=== PATIENT | female | born 1930 | race Caucasian/White ===

== ENCOUNTER 2017-10-12 04:13 | Inpatient (IN) | payer OTHER ==
[2017-10-12] MEDS ORDERED: ONDANSETRON 4 MG/2 ML VIAL ONE (05:21)
[2017-10-12] MEDS ORDERED: MORPHINE 4 MG/ML SYR ONE ×2 (05:21→08:50)
--- NOTE | 2017-10-12 08:03 | EDPHYS ---
Physician Documentation [facility] Name: Aide Hauser Age: 88 yrs Sex: Female : 02/25/1929 Arrival Date: 10/12/2017 Time: 04:14 Bed 17 Private MD: ED Physician Antione Osorio HPI: 10/12 04:18 This 88 yrs old Female presents to ER via EMS with complaints of left hip ps1 pain and fall. 04:18 Pain localized to left hip. BIBEMS. had fall at home. Mechanical in bathroom. Hit head. ps1 Not on blood thinners. pain rated moderate worse with moving left leg. Appears to have leg length discrepancy. . Historical: - Allergies: 04:19 No Known Allergies; bb - Home Meds: 04:19 gabapentin 600 mg oral tab [Active]; glimepiride 4 mg Oral tab [Active]; levothyroxine bb 100 mcg tab [Active]; lisinopril 20 mg Oral tab [Active]; lorazepam 2 mg Oral tab [Active]; meloxicam 15 mg oral tab [Active]; Phenylephrine Opht [Active]; dextromethorphan-guaifenesin oral oral [Active]; - PMHx: 04:19 Hypertension; Hyperlipidemia; Diabetes - NIDDM; bb - Immunization history:: Adult Immunizations up to date. - Social history:: Smoking status: Patient/guardian denies using tobacco. - Ebola Screening: : No symptoms or risks identified at this time. ROS: 04:18 Constitutional: Negative for fever, chills, and weight loss, Eyes: Negative for injury, ps1 pain, redness, and discharge, Cardiovascular: Negative for chest pain, palpitations, and edema, Respiratory: Negative for shortness of breath, cough, wheezing, and pleuritic chest pain, Abdomen/GI: Negative for abdominal pain, nausea, vomiting, diarrhea, and constipation, Back: Negative for injury and pain, Skin: Negative for injury, rash, and discoloration, Neuro: Negative for headache, weakness, numbness, tingling, and seizure. 04:18 MS/extremity: Positive for injury or acute deformity, pain, of the left leg. Exam: 04:18 Constitutional: This is a well developed, well nourished patient who is awake, alert, ps1 and in no acute distress. Head/Face: Normocephalic, atraumatic. Eyes: Pupils equal round and reactive to light, extra-ocular motions intact. Lids and lashes normal. Conjunctiva and sclera are non-icteric and not injected. Chest/axilla: Normal chest wall appearance and motion. Nontender with no deformity. No lesions are appreciated. Cardiovascular: Regular rate and rhythm. No gallops, murmurs, or rubs. Normal PMI, no JVD. No pulse deficits. Respiratory: Lungs have equal breath sounds bilaterally, clear to auscultation and percussion. No rales, rhonchi or wheezes noted. No increased work of breathing, no retractions or nasal flaring. Abdomen/GI: Soft, non-tender, with normal bowel sounds. No distension or tympany. No guarding or rebound. No evidence of tenderness throughout. Skin: Warm, dry with normal turgor. Normal color with no rashes, no lesions, and no evidence of cellulitis. 04:18 Musculoskeletal/extremity: Extremities: grossly normal except: noted in the left leg and pelvis: pain, decreased ROM, pain. Vital Signs: 04:19 BP 122 / 67; Pulse 120; Resp 18 S; Temp 99.1(O); Pulse Ox 96% on R/A; Weight 68.49 kg bb (R); Height 5 ft. 6 in. (167.64 cm) (R); Pain 8/10; 06:11 BP 117 / 56; Pulse 99; Resp 18 S; Pulse Ox 100% on R/A; Pain 8/10; jd3 08:11 BP 126 / 51; Pulse 93; Resp 18; Pulse Ox 95% on 2 lpm NC; sv 09:06 BP 132 / 76; Pulse 91; Resp 16; Pulse Ox 95% on 2 lpm NC; sv 09:30 BP 130 / 65; Pulse 97; Resp 18; Pulse Ox 97% on 2 lpm NC; sv 04:19 Body Mass Index 24.37 (68.49 kg, 167.64 cm) bb MDM: 04:17 Patient medically screened. ps1 08:02 Differential diagnosis: hip fracture, femoral neck fracture. Data reviewed: vital rn signs, nurses notes, lab test result(s), EKG, radiologic studies, CT scan, plain films, and as a result, I will admit patient. Counseling: I had a detailed discussion with the patient and/or guardian regarding: the historical points, exam findings, and any diagnostic results supporting the discharge/admit diagnosis, lab results, radiology results, the need for further work-up and treatment in the hospital. Response to treatment: the patient's symptoms have mildly improved after treatment, and as a result, I will admit patient. Admission orders: after a detailed discussion of the patient's condition and case, the admit orders are written by me. 10/12 04:17 Order name: Basic Metabolic Panel; Complete Time: 09:10 ps1 10/12 04:17 Order name: CBC with Diff; Complete Time: 09:10 ps1 10/12 04:17 Order name: Type And Screen ps1 10/12 10:15 Order name: Urine Dipstick--Ancillary (enter results) em1 10/12 04:17 Order name: XRAY Pelvis; Complete Time: 09:10 ps1 10/12 04:17 Order name: Femur Left XRAY; Complete Time: 09:10 ps1 10/12 07:12 Order name: Head C Spine Cap Wo Con; Complete Time: 09:10 EDMS 10/12 04:17 Order name: Labs collected and sent; Complete Time: 06:03 ps1 10/12 04:17 Order name: Urine Dipstick-Ancillary (obtain specimen); Complete Time: 10:12 ps1 10/12 08:05 Order name: Doyle; Complete Time: 08:28 sv 10/12 08:09 Order name: CONS Physician Consult EDMS Administered Medications: 05:18 Drug: morphine 2 mg Route: IM; Site: left vastus lateralis; kl 05:18 Drug: Zofran 4 mg Route: IM; Site: left vastus lateralis; kl 05:37 Not Given (Other Intervention Used): morphine 2 mg IVP once kl 05:37 Not Given (Other Intervention Used): Zofran 4 mg IVP once; over 2 minutes kl 08:10 CANCELLED (Duplicate Order): Rocephin - (cefTRIAXone) 1 grams IVPB once over 30 mins; rn (mix in 50 mL NS) 08:10 CANCELLED (Duplicate Order): AZITHromycin 500 mg IVPB once over 1 hrs; (mix in 250 mL rn NS) 08:30 CANCELLED (change order): LevaQUIN 750 mg 150 ml IVPB once over 90 mins sv 09:01 Drug: morphine 2 mg Route: IVP; Site: left antecubital; sv 10:03 Follow up: Response: No adverse reaction sv 09:03 Drug: Rocephin 1 grams Route: IV; Rate: calculated rate; Site: left antecubital; sv 09:07 Follow up: Response: No adverse reaction; IV Status: Completed infusion; IV Intake: 10mlsv 09:08 Drug: Zithromax 500 mg Route: IVPB; Infused Over: 1 hrs; Site: left antecubital; sv 10:28 Follow up: Response: No adverse reaction; IV Status: Completed infusion; IV Intake: sv 250ml Disposition: 10/12/17 08:03 Hospitalization ordered by Kimberly Angeles for Inpatient Admission. Preliminary diagnosis are Pneumonia, Fracture of unspecified part of neck of left femur. - Bed requested for Telemetry/MedSurg (Inpatient). - Status is Inpatient Admission. sv - Condition is Stable. - Problem is new. - Symptoms have improved. UTI on Admission? No Signatures: Dispatcher [employer] EDMS Saranya Grace RN RN kl Verde, Stephanie, RN RN sv Ballard, Brenda, RN RN bb Nieto, Roman, MD MD rn Smirch, Shelby, RN RN ss Cedric Horner MD MD ps1 Corrections: (The following items were deleted from the chart) 06:04 04:17 Creatinine for Radiology+C.LAB.BRZ ordered. EDIN EDMS 06:36 04:17 Head C Spine CAP W Con+CT.RAD.BRZ ordered. EDIN EDMS 07:12 06:35 Head C Spine Mpr Wo Con ordered. EDIN EDMS 08:10 08:02 Rocephin - (cefTRIAXone) 1 grams IVPB once over 30 mins; (mix in 50 mL NS) rn ordered. rn 08:10 08:02 AZITHromycin 500 mg IVPB once over 1 hrs; (mix in 250 mL NS) ordered. rn rn 08:30 08:10 LevaQUIN 750 mg 150 ml IVPB once over 90 mins ordered. rn sv 09:43 08:03 Hospitalization Ordered by Kimberly Angeles MD for Inpatient Admission. Preliminary ss diagnosis is Pneumonia; Fracture of unspecified part of neck of left femur. Bed requested for Telemetry/MedSurg (Inpatient). Status is Inpatient Admission. Condition is Stable. Problem is new. Symptoms have improved. UTI on Admission? No. rn 10:47 09:43 10/12/2017 08:03 Hospitalization Ordered by Kimberly Angeles MD for Inpatient sv Admission. Preliminary diagnosis is Pneumonia; Fracture of unspecified part of neck of left femur. Bed requested for Telemetry/MedSurg (Inpatient). Status is Inpatient Admission. Condition is Stable. Problem is new. Symptoms have improved. UTI on Admission? No. ss
--- NOTE | 2017-10-12 08:03 | ER ---
Nurse's Notes [facility] Name: Aide Hauser Age: 88 yrs Sex: Female : 02/25/1929 Arrival Date: 10/12/2017 Time: 04:14 Bed 17 Private MD: Diagnosis: Pneumonia;Fracture of unspecified part of neck of left femur Presentation: 10/12 04:05 Presenting complaint: EMS states: they were toned out for report of pt fall with left bb leg pain, pt denies LOC, pt states she stopped taking blood thinners 2 months ago. Transition of care: patient was not received from another setting of care. Onset of symptoms was October 12, 2017. Risk Assessment: Do you want to hurt yourself or someone else? Patient reports no desire to harm self or others. Initial Sepsis Screen: Does the patient meet any 2 criteria? HR > 90 bpm. Does the patient have a suspected source of infection? No. Patient's initial sepsis screen is negative. Care prior to arrival: None. 04:05 Method Of Arrival: EMS: [facility] bb 04:05 Acuity: DARWIN 3 bb 05:39 Note pt repositioned for comfort tolerated well O2 sat 84% on room air O2 at 3 liters kl NC applied sat up to 95% pt reports cough x 2 days with reports of indigestion provider notified. Historical: - Allergies: 04:19 No Known Allergies; bb - Home Meds: 04:19 gabapentin 600 mg oral tab [Active]; glimepiride 4 mg Oral tab [Active]; levothyroxine bb 100 mcg tab [Active]; lisinopril 20 mg Oral tab [Active]; lorazepam 2 mg Oral tab [Active]; meloxicam 15 mg oral tab [Active]; Phenylephrine Opht [Active]; dextromethorphan-guaifenesin oral oral [Active]; - PMHx: 04:19 Hypertension; Hyperlipidemia; Diabetes - NIDDM; bb - Immunization history:: Adult Immunizations up to date. - Social history:: Smoking status: Patient/guardian denies using tobacco. - Ebola Screening: : No symptoms or risks identified at this time. Screenin:27 Abuse screen: Denies threats or abuse. Denies injuries from another. Nutritional sv screening: No deficits noted. Tuberculosis screening: No symptoms or risk factors identified. Fall Risk No fall in past 12 months (0 pts). Secondary diagnosis (15 points) impaired mobility, IV access (20 points). Ambulatory Aid- None/Bed Rest/Nurse Assist (0 pts). Gait- Impaired (20 pts.). Mental Status- Oriented to own ability (0 pts). Total Valle Fall Scale indicates High Risk Score (45 or more points). Fall prevention measures have been instituted. Side Rails Up X 2 Placed Close to Nursing Station Frequent Obs/Assessments Occuring Family Present and informed to notify staff if the need to leave the bedside As available patient and family educated on Fall Prevention Program and Strategies. Assessment: 04:14 General: Appears uncomfortable, Behavior is calm, cooperative, appropriate for age. jd3 Pain: Complains of pain in left hip and left leg Pain currently is 8 out of 10 on a pain scale. Quality of pain is described as aching, tender, Is continuous, Aggravated by increased activity. Neuro: Level of Consciousness is awake, alert, obeys commands, Oriented to person, place, time, situation, Appropriate for age Speech is normal, Pupils are PERRLA, Intact. Cardiovascular: Heart tones S1 S2 present Capillary refill < 3 seconds Patient's skin is warm and dry. Pulses are palpable in right dorsalis pedis artery and left dorsalis pedis artery. Respiratory: Airway is patent Respiratory effort is even, unlabored, Respiratory pattern is regular, symmetrical, Breath sounds are clear bilaterally. GI: Abdomen is round Bowel sounds present X 4 quads. Abd is soft and non tender X 4 quads. Patient currently denies nausea, vomiting. : No signs and/or symptoms were reported regarding the genitourinary system. EENT: No signs and/or symptoms were reported regarding the EENT system. Derm: Skin is intact, Skin is dry, Skin is normal, Skin temperature is warm. Musculoskeletal: Circulation, motion, and sensation intact. Range of motion: limited in left hip externally rotated and shortening noted of left leg. 05:15 Reassessment: Patient appears in no apparent distress at this time. Patient and/or jd3 family updated on plan of care and expected duration. Pain level reassessed. Patient is alert, oriented x 3, equal unlabored respirations, skin warm/dry/pink. 06:12 Reassessment: Patient appears in no apparent distress at this time. Patient and/or jd3 family updated on plan of care and expected duration. Pain level reassessed. Patient is alert, oriented x 3, equal unlabored respirations, skin warm/dry/pink. waiting on results of labs and diagnostics tests. 07:20 General: Appears uncomfortable, Behavior is calm, cooperative, appropriate for age. sv Pain: Complains of pain in left hip Pain currently is 8 out of 10 on a pain scale. Quality of pain is described as tender, Is continuous. Neuro: Level of Consciousness is awake, alert, obeys commands, Oriented to person, place, time, situation. Respiratory: Respiratory effort is even, unlabored, Respiratory pattern is regular, symmetrical. Derm: Skin is normal. 07:23 Reassessment: Deana RN at bedside attempting to get IV access. sv 07:49 Reassessment: 2 missed IV attempts via ultrasound per Deana KIDD, notified, sg ultrasound remains at bedside for IV access, awaiting at this time. 09:00 Reassessment: Patient appears in no apparent distress at this time. No changes from sv previously documented assessment. Patient and/or family updated on plan of care and expected duration. Pain level reassessed. Patient is alert, oriented x 3, equal unlabored respirations, skin warm/dry/pink. 10:27 Reassessment: Patient appears in no apparent distress at this time. No changes from sv previously documented assessment. Patient and/or family updated on plan of care and expected duration. Pain level reassessed. Patient is alert, oriented x 3, equal unlabored respirations, skin warm/dry/pink. Vital Signs: 04:19 BP 122 / 67; Pulse 120; Resp 18 S; Temp 99.1(O); Pulse Ox 96% on R/A; Weight 68.49 kg bb (R); Height 5 ft. 6 in. (167.64 cm) (R); Pain 8/10; 06:11 BP 117 / 56; Pulse 99; Resp 18 S; Pulse Ox 100% on R/A; Pain 8/10; jd3 08:11 BP 126 / 51; Pulse 93; Resp 18; Pulse Ox 95% on 2 lpm NC; sv 09:06 BP 132 / 76; Pulse 91; Resp 16; Pulse Ox 95% on 2 lpm NC; sv 09:30 BP 130 / 65; Pulse 97; Resp 18; Pulse Ox 97% on 2 lpm NC; sv 04:19 Body Mass Index 24.37 (68.49 kg, 167.64 cm) bb ED Course: 04:14 Patient arrived in ED. jd3 04:14 Bello Gamble RN is Primary Nurse. jd3 04:15 Cedric Horner MD is Attending Physician. ps1 04:16 Triage completed. bb 04:19 Patient has correct armband on for positive identification. Bed in low position. Call jd3 light in reach. Side rails up X2. 04:19 Arm band placed on Patient placed in an exam room, on a stretcher, on oxygen. bb 05:05 Radiology exam delayed due to lab results not completed at this time. (BUN/Creatinine). sj 05:41 Missed attempt(s): 24 gauge in left hand. kl 06:33 X-ray completed. Portable x-ray completed in exam room. Patient tolerated procedure kw well. 06:33 Radiology exam delayed due to CODE 99. kw 06:35 XRAY Pelvis In Process Unspecified. EDMS 06:35 Femur Left XRAY In Process Unspecified. EDMS 06:[address] via stretcher. kw1 06:44 CT completed. Patient tolerated procedure well. Patient moved back from CT. kw1 07:04 Primary Nurse role handed off by Bello Gamble RN sv 07:04 Dasha Velazco, RN is Primary Nurse. sv 07:13 Head C Spine Cap Wo Con In Process Unspecified. EDMS 07:58 Attending Physician role handed off by Cedric Horner MD rn 07:58 Antione Osorio MD is Attending Physician. rn 08:03 Kimberly Angeles MD is Hospitalizing Provider. rn 08:15 Doyle cath inserted, using sterile technique, 16 Fr., by or, balloon inflated, to mh5 gravity drainage. 08:40 Missed attempt(s): 22 gauge in left antecubital area. using Ultrasound, done by Dr gabriela Osorio. Bleeding controlled, band aid applied, catheter tip intact. 09:00 Accessed peripheral vein via ultrasound, utilizing dynamic ultrasound technique using gabriela ,sterile technique, per hospital protocol. Clean \T\ dry. Dressing intact. Good blood return. Flushes easily. 22G diffusics, done by Dr Osorio.. 10:09 No provider procedures requiring assistance completed. Patient admitted, IV remains in sv place. intact. 10:28 Urine Dipstick--Ancillary (enter results) Sent. sv Administered Medications: 05:18 Drug: morphine 2 mg Route: IM; Site: left vastus lateralis; kl 05:18 Drug: Zofran 4 mg Route: IM; Site: left vastus lateralis; kl 05:37 Not Given (Other Intervention Used): morphine 2 mg IVP once kl 05:37 Not Given (Other Intervention Used): Zofran 4 mg IVP once; over 2 minutes kl 08:10 CANCELLED (Duplicate Order): Rocephin - (cefTRIAXone) 1 grams IVPB once over 30 mins; rn (mix in 50 mL NS) 08:10 CANCELLED (Duplicate Order): AZITHromycin 500 mg IVPB once over 1 hrs; (mix in 250 mL rn NS) 08:30 CANCELLED (change order): LevaQUIN 750 mg 150 ml IVPB once over 90 mins sv 09:01 Drug: morphine 2 mg Route: IVP; Site: left antecubital; sv 10:03 Follow up: Response: No adverse reaction sv 09:03 Drug: Rocephin 1 grams Route: IV; Rate: calculated rate; Site: left antecubital; sv 09:07 Follow up: Response: No adverse reaction; IV Status: Completed infusion; IV Intake: 10mlsv 09:08 Drug: Zithromax 500 mg Route: IVPB; Infused Over: 1 hrs; Site: left antecubital; sv 10:28 Follow up: Response: No adverse reaction; IV Status: Completed infusion; IV Intake: sv 250ml Intake: 09:07 IV: 10ml; Total: 10ml. sv 10:28 IV: 250ml; Total: 260ml. sv Outcome: 08:03 Decision to Hospitalize by Provider. rn 10:09 Admitted to Tele accompanied by tech, via stretcher, room 220, with oxygen, with chart, sv Report called to Gracia KIDD 10:09 Condition: stable 10:09 Instructed on the need for admit. 10:47 Patient left the ED. sv Signatures: Dispatcher [employer] Saranya Rothman RN RN kl Verde, Stephanie, RN RN sv Gay, Steven, RN RN sg Jones, Susan sj Ballard, Brenda, RN RN bb Nieto, Roman, MD MD rn Irwin, Yoselin kw Alexis, Antoinette [facility] Bello Gamble RN RN jd3 Singer, Phillip, MD MD ps1 Wilhelm, Kimberly kw1 Corrections: (The following items were deleted from the chart) 04:19 04:14 Musculoskeletal: Circulation, motion, and sensation intact. Range of motion: jd3 intact in all extremities, jd3 07:12 06:55 In radiology for Head C Spine Mpr Wo Con. EDMS EDMS
[2017-10-12 08:05] LABS: Absolute Lymphocytes (CBC) 1.1 K/uL (0.7-4.9); Absolute Monocytes 0.5 K/uL (0.1-1.3); Absolute Neutrophil 7.1 K/uL (1.8-8.0); Basophils % 0.3 % (0-1.3); Eosinophils % 0.1 % (0-4.4); Hematocrit 38.5 % (36.0-45.0); Lymphocytes % 12.1 % (15.3-44.8); MCH 29.9 pg (27.0-35.0); MCV 90.1 fL (80-100); MPV 10.7 fL (7.6-11.3); Monocytes % 6.1 % (3.3-12.3); RBC Red Blood Cell Count 4.27 M/uL (3.86-4.86)
[2017-10-12 08:06] LABS: Potassium 4.1 mEq/L (3.6-5.0)
[2017-10-12] MEDS ORDERED: CEFTRIAXONE/SWI 1gm 1 GM/10 ML SYR ONE (08:19)
[2017-10-12] MEDS ORDERED: AZITHROMYCIN 500 MG/250 ML BAG ONE (08:19)
[2017-10-12] MEDS ORDERED: ACETAMINOPHEN 500 MG TAB PO PRN (08:25)
[2017-10-12] MEDS ORDERED: ONDANSETRON 4 MG/2 ML VIAL IV PRN (08:25)
[2017-10-12] MEDS ORDERED: D50W 25 GM/50 ML SYRINGE IV PRN (08:31)
[2017-10-12] MEDS ORDERED: GLUCAGON 1 MG/VIAL IM PRN (08:31)
--- NOTE | 2017-10-12 08:43 | RAD REPORT ---
EXAM DESCRIPTION: RAD - Femur Left - 10/12/2017 6:34 am CLINICAL HISTORY: Left leg pain status post fall FINDINGS: A mildly displaced subcapital fracture involves the left femur. No dislocation is seen. The bones are osteoporotic
--- NOTE | 2017-10-12 08:44 | RAD REPORT ---
EXAM DESCRIPTION: RAD - Pelvis - 10/12/2017 6:34 am CLINICAL HISTORY: Pelvic pain status post injury FINDINGS: A mildly displaced subcapital fracture involves the left femur. No dislocation is seen. The bones are osteoporotic
[2017-10-12] MEDS: NA CHLORIDE 0.9% 1,000 ML IV SCH ×2 (09:00→22:20)
--- NOTE | 2017-10-12 09:04 | RAD REPORT ---
EXAM DESCRIPTION: CT - Head C Spine Cap Geovanna Con - 10/12/2017 8:59 am TECHNIQUE: Computed axial tomography of the head and cervical spine was obtained. Coronal and sagitt al reconstruction was performed Computed axial tomography of the chest, abdomen and pelvis was obtained. Contrast was not requested. All CT scans are performed using dose optimization technique as appropriate and may include automated exposure control or mA/KV adjustment according to patient size. CLINICAL HISTORY: Head and neck injury with chest and abdominal pain status post fall COMPARISON: none FINDINGS: An intracranial bleed is not seen. The ventricles are normal in caliber. No acute intracranial abnormality is noted. Fluid within the sinuses/mastoids is not seen. A cervical fracture is not seen. No dislocation is noted. Spondylosis involves C5-6 and C6-7. This re sults in moderate central spinal stenosis. The evaluation of mediastinum, forest, vessels, solid organs and bowel are limited secondary to the lac k of contrast administration. A mediastinal hematoma is not noted. A pleural effusion is not seen. A lung contusion is not present. The liver,spleen, pancreas, adrenals,kidneys and bladder appear grossly normal. A mildly displaced subcapital fracture involves the left femur. IMPRESSION: 1. No acute intracranial abnormality is seen. 2. A cervical fracture is not visualized. If the patient continues have symptoms to suggest intracran ial/spinal cord/spinal canal pathology then MRI would be recommended 3. Mildly displaced subcapital fracture of the left femur. 3. No traumatic injury involving the chest/abdomen is seen
[2017-10-12] MEDS: INSULIN -REGULAR HUMAN 50 UNIT/0.5 ML ML SQ SCH ×3 (11:30→21:00)
[2017-10-12 11:47] LABS: Urine Blood 2+ (NEG); Urine Glucose NEGATIVE (NEG); Urine Protein NEGATIVE (NEG); Urine Specific Gravity 1.015 (1.005-1.030)
[2017-10-12] MEDS ORDERED: MORPHINE 2 MG/ML SYR IV PRN (11:52)
--- NOTE | 2017-10-12 12:25 | CON ---
An 87-year-old woman. Additional Attending Physician: Antione Osorio MD Chief Complaint: Pain in her left hip. History Of Present Illness: Mrs. Hauser had a slip and a fall. There was no loss of consciousness . She hurt several places, but her left hip in particular. X-rays indicated a subcapital fracture o f the femoral neck on the left. I am asked to evaluate her heart for the suitability of going throug h surgery. She has a history of breast cancer, multigravid, never had any problems with heart surger y. She has a murmur of the aortic stenosis. Most recent echocardiogram in my office said the degree of stenosis was mild enough, but was called sclerotic rather than stenotic. She denies having chest pain that sounds like angina. No episodes of syncope. No episodes of congestive heart failure. Stef sandoval does not have diabetes. There is some concern that she has pneumonia now, but there is no chest x- ray to say she does and she does not seem to have an infiltrate on a CT that included the chest, so I am not sure why we are entertaining the diagnosis of pneumonia. There is probably a test, I do not have available. She uses at home, gabapentin, glimepiride, levothyroxine, lisinopril, lorazepam, andrew oxicam, phenylephrine, ophthalmic drops, dextromethorphan, guaifenesin for a cough. Most of those me dicines are as needed. She has underlying diabetes and aortic valve disease that does not appear to be severe. Physical Examination: General: She appears to be mildly obese, alert, oriented, pleasant, appears to be her stated age. Vital Signs: Blood pressure 122/67. Her pulse was 120 when she first came to the ER, now it is abou t 85. Lungs: Do not reveal crackles or wheeze. Heart: Reveals a 2 to 3/6 systolic musical and high-pitched ejection type murmur. No diastolic murm ur is appreciated. Abdomen: Soft. Extremities: Reveal palpable distal pulses. There are mild edema, changes of venous insufficiency. The left foot is laterally displaced consistent with a femoral neck fracture. Assessment And Plan: I will recommend we do an echocardiogram, but she seems to be acceptable risk f or going through surgery, open reduction and internal fixation of subcapital femoral neck fracture. Orthopedic surgeon has not really made his recommendations yet in anticipation of her need for genera l anesthesia and surgery. TIEN Voice ID: [id number] Report ID: [id number]
--- NOTE | 2017-10-12 14:02 | ECHO ---
HEIGHT: 5 ft 6 in WEIGHT: 151 lb 0 oz DATE OF STUDY: 10/12/[address]: Alex Dalton MD 2-DIMENSIONAL: YES M.MODE: YES DOPPLER: YES COLOR FLOW: YES TDS: PORTABLE: DEFINITY: BUBBLE STUDY: DIAGNOSIS: AORITC VALVE DISEASE CARDIAC HISTORY: CATHERIZATION: NO SURGERY: NO PROSTHETIC VALVE: NO PACEMAKER: NO MEASUREMENTS (cm) DIASTOLIC (NORMALS) SYSTOLIC (NORMALS) IVSd 1.0 (0.6-1.2) LA Diam 3.3 (1.9-4.0) LVEF 58% LVIDd 4.1 (3.5-5.7) LVIDs 2.8 (2.0-3.5) %FS 30% LVPWd 1.1 (0.6-1.2) Ao Diam 3.0 (2.0-3.7) 2 DIMENSIONAL ASSESSMENT: RIGHT ATRIUM: NORMAL LEFT ATRIUM: NORMAL RIGHT VENTRICLE: NORMAL LEFT VENTRICLE: NORMAL TRICUSPID VALVE: NORMAL MITRAL VALVE: MAC PULMONIC VALVE: NORMAL AORTIC VALVE: STNEOSIS PERICARDIAL EFFUSION: NONE AORTIC ROOT: NORMAL LEFT VENTRICULAR WALL MOTION: NORMAL DOPPLER/COLOR FLOW: MODERATE AORTIC STENOSIS P/MEAN GRADIENT 30/21 ESTIMATED AORTIC VALVE AREA 1.4 CENTIMETER SQUARE. IM PAIRED LEFT VENTRICULAR RELAXATION. COMMENTS: NORMAL LEFT VENTRICULAR EJECTION FRACTION. MITRAL ANNULAR CALCIFICATION MODERATE AORTIC STENOSIS, NO AORTIC REGURGITATION. IMPAIRED LEFT VENTRICULAR RELAXATION. TECHNOLOGIST: CHARLES KELLY
[2017-10-12] MEDS: Morphine 2 MG/2 ML SYR IV PRN ×2 (15:09→21:04)
--- NOTE | 2017-10-12 15:26 | HP ---
Date of Admission: 10/12/2017 Consultants: Dr. Moore, Orthopedics; Dr. Dalton with Cardiology. Chief Complaint: Fall, left hip pain, cough. Code Status: Full. Primary Care Physician: Lucie Morgan DO History Of Present Illness: The patient is an 87-year-old female with past medical history of diabetes non-insulin requiring, gout, hypothyroidism, history of breast cancer status post lumpectomy, and chronic liver disease, unknown etiology, currently being worked up by Dr. Sheth, who was in her usual state of health until 3 days prior to admission when the patient started having generalized weakness, cough. No subjective fevers. The patient was exposed to her great grandson who was sick and started having some cough with sputum production, which was white, occasionally blood-tinged. The patient had been feeling ill for the past few days. Her symptoms are constant, moderate, and progressively worsening. She did not come to the ER as requested per her daughter 2 days ago and last night was [facility] the [facility] and was unable to make it. She was unable to control her bladder and slipped and fell in the bathroom. The patient hit her head on the commode and also fell on the shower door and hurt her left hip. The patient's pain was constant, moderate, not radiating. The patient therefore came into the ER for further evaluation. Upon arrival, her vital signs were stable. She was afebrile. Her workup revealed a normal WBC count. Her creatinine was 1.02. Imaging studies showed no intracranial hemorrhage, did see a mildly displaced subcapital fracture of the left femur. The patient was then referred for admission for pneumonia and left hip fracture. When seen in the ER, the patient was awake, alert, oriented x3, in some mild distress due to pain. Past Medical History: Diabetes non-insulin requiring, gout, hypothyroidism, history of breast cancer status post lumpectomy and radiation therapy, chronic liver disease with unclear etiology, being worked up by Dr. Sheth, hysterectomy, cholecystectomy, generalized anxiety disorder. Allergies: NO KNOWN DRUG ALLERGIES. Medications: List reviewed. Social History: The patient denies any alcohol use, tobacco use, or illicit drug use. The patient does not use any assistive ambulatory devices. Lives with her daughter. Has good social support. Family History: Mom and dad both had cancer. Review of Systems: An 11-point system reviewed, negative except as per HPI. Physical Examination: Vital Signs: Blood pressure 122/67, pulse 120, respirations 18, temperature 99.1, O2 96% on room air. General: Awake, alert, oriented x3, in some mild distress due to pain. Elderly , ill-appearing female. CV: S1, S2. Sinus tachycardia. Peripheral pulses present. Positive for 3/6 systolic murmur. Respiratory: Diminished breath sounds. No wheezing or stridor. Some rhonchi heard. No use of accessory muscles. Gastrointestinal: Abdomen is soft, nontender, and nondistended. Positive bowel sounds. No guarding or rigidity. Extremities: No clubbing, cyanosis, or edema. No calf tenderness. Neuro: Cranial nerves 2 through 12 intact grossly. No focal neurological deficit. Speech is normal. Strength is symmetric bilateral upper extremities. Unable to assess left lower extremity due to pain. Musculoskeletal: Left lower extremity, decreased range of motion and tenderness to palpation, rotated. Laboratory Data: Sodium 138, potassium 4.1, chloride 101, CO2 29, BUN 12, creatinine 1.02, glucose 102, calcium 9.1. WBC 8.8, H and H 12.8 and 38.5, platelets 181, neutrophils 81%. UA; 2+ blood, negative leukocyte, negative nitrite. CT traumagram; no intracranial bleed, cervical fracture not visualized , mildly displaced subcapital fracture of the left femur. No traumatic injury involving the chest and abdomen is seen. Pelvis x-ray shows mildly displaced subcapital fracture involving the left femur. No dislocation is seen. Bones are osteoporotic. Assessment And Plan: An 87-year-old female with: 1. Left femoral neck fracture status post mechanical fall. Dr. Moore has been consulted. The patient will go for surgery in a.m. Dr. Dalton consulted for cardiac clearance. The patient does have a murmur, history of aortic sclerosis, possible stenosis. We will obtain echocardiogram prior to surgery. We will keep n.p.o. after midnight. 2. Pneumonia. We will start on IV antibiotics, obtain blood cultures and sputum culture. The patient does have cough, sputum production, and generalized weakness. 3. Recent recurrent falls. The patient is on benzodiazepines for anxiety. We will hold for now. Fall precautions. 4. Osteoporosis. 5. Diabetes mellitus type 2, non-insulin requiring with hyperglycemia. We will continue with sliding scale insulin and Accu-Cheks. 6. Hypothyroidism. Continue Synthroid. 7. Gout. 8. Generalized anxiety disorder. Hold benzodiazepines. 9. History of breast cancer, currently in remission. Plan: Admit the patient to Med/Surg, place as observation. The patient will anticipate surgery in a.m. We will follow up with echocardiogram. Appreciate Dr. Dalton' and Dr. Moore's input. No MPOA or living will /TAMAR Voice ID: [id number]
--- NOTE | 2017-10-12 16:19 | CON ---
Date of Consultation: 10/12/2017 History Of Present Illness: This is my first time seeing this patient to my knowledge. She is an 87 -year-old female, who unfortunately fell injuring her left lower extremity. She was seen and examine d in the emergency department where she was ruled out for other injuries; however, x-rays demonstrate d a displaced left femoral neck fracture. Physical Examination: All of her long bones and joints palpated without pain or crepitation with the exception of her left hip. She is neurovascularly intact. Diagnostic Data: Review of x-rays and CT revealed a displaced left femoral neck fracture. Assessment: This is an 87-year-old female with some medical conditions, who now has a displaced left femoral neck fracture. Plan: At this time, we will await final cardiac clearance and we will have her n.p.o. after 7 a.m. t omorrow. Otherwise, 1 administration of Lovenox would be fine; however, that would be the last this morning. Also, SCDs. We will plan on pursuing left hip bipolar hemiarthroplasty tomorrow and all ri sks, benefits, and alternatives of this procedure have been discussed with both the patient and the f amily. They state they understand as things presented and wishes to proceed. I have discussed this plan with her PCP and family, and they are agreeable. MOMO Voice ID: [id number] Report ID: [id number]
[2017-10-12] MEDS: GLIMEPIRIDE 2 MG TABLET PO SCH (17:00)
[2017-10-12] MEDS: GABAPENTIN 300 MG CAP PO SCH (21:04)
[2017-10-12 22:35] LABS: Urine Appearance CLEAR; Urine Bilirubin NEGATIVE (NEG); Urine Blood 3+ (NEG); Urine Color YELLOW; Urine Glucose NEGATIVE (NEG); Urine Protein NEGATIVE (NEG); Urine Specific Gravity <=1.005 (1.005-1.030); Urine Urobilinogen 0.2 mg/dL (0.2-1.0); Urine pH 6.5 (5.0-7.0)
[2017-10-12 22:36] LABS: Urine Microscopic Reflex ORDER UMIC
[2017-10-12 23:04] LABS: Urine Bacteria <20 /HPF (<20); Urine Culture Reflex Order REFLEXED; Urine RBC <5 /HPF (NONE SEEN)
[2017-10-13] MEDS: Morphine 2 MG/2 ML SYR IV PRN ×2 (01:23→05:57)
[2017-10-13] MEDS: LEVOTHYROXINE SOD 0.1 MG TAB PO SCH (05:40)
[2017-10-13 06:25] LABS: Absolute Lymphocytes (CBC) 1.7 K/uL (0.7-4.9); Absolute Neutrophil 5.2 K/uL (1.8-8.0); Basophils % 0.4 % (0-1.3); Eosinophils % 0.5 % (0-4.4); Hematocrit 39.5 % (36.0-45.0); Lymphocytes % 21.9 % (15.3-44.8); MCH 30.1 pg (27.0-35.0); MCV 91.1 fL (80-100); MPV 10.2 fL (7.6-11.3); Monocytes % 12.4 % (3.3-12.3); RBC Red Blood Cell Count 4.33 M/uL (3.86-4.86)
[2017-10-13 06:25] LABS: Albumin 3.6 g/dL (3.2-5.5); Bilirubin Total 0.9 mg/dL (0.3-1.2); Potassium 4.2 mEq/L (3.6-5.0); Protein, Total 7.3 g/dL (6.0-8.3)
[2017-10-13] MEDS ORDERED: MORPHINE 4 MG/ML SYR IV PRN (07:28)
[2017-10-13] MEDS: INSULIN -REGULAR HUMAN 50 UNIT/0.5 ML ML SQ SCH ×4 (07:30→21:00)
[2017-10-13] MEDS: GLIMEPIRIDE 2 MG TABLET PO SCH ×2 (08:00→17:00)
[2017-10-13] MEDS ORDERED: AZITHROMYCIN IV 500 MG in NA CHLORIDE 0.9% 250 ML IVPB SCH (09:00)
[2017-10-13] MEDS ORDERED: CEFTRIAXONE/SWI 1gm 1 GM/10 ML SYR IV SCH (09:00)
[2017-10-13] MEDS: LISINOPRIL 20 MG TAB PO SCH (09:00)
[2017-10-13] MEDS: GABAPENTIN 300 MG CAP PO SCH ×2 (09:00→21:00)
[2017-10-13] MEDS ORDERED: BENZONATATE 100 MG CAP PO PRN (10:09)
[2017-10-13] MEDS: NA CHLORIDE 0.9% 1,000 ML IV SCH (11:40)
--- NOTE | 2017-10-13 13:22 | PN ---
Date of Progress Note: 10/13/2017 Subjective: The patient seen and examined, chart reviewed, and case discussed with RN. The patient states her pain is controlled with medications, going for surgery this afternoon. Review of Systems: Negative except as above. Medications: Reviewed. Objective: Vital Signs: Temperature 98.1, heart rate 96, blood pressure 139/68, respirations 18, O2 90% on 2 L via nasal cannula. General: awake, alert, oriented x3. Elderly female, in some mild distress due to pain. CV: S1, S2. Peripheral pulses present. Regular rate and rhythm. 3/6 holosystolic murmur. Respiratory: Moving air well bilaterally. No wheezing. Gastrointestinal: Abdomen is soft, nontender, nondistended. Positive bowel sounds. Extremities: No clubbing, cyanosis, or edema. Neurologic: Nonfocal. Musculoskeletal: Left lower extremity shortened. Laboratory Data: Sodium 136, potassium 4.2, chloride 98, CO2 29, BUN 12, creatinine 0.97, glucose 11 3, and calcium 8.6. WBC 8, H and H 13, 39.5, and platelets 164. Blood cultures pending. Urine cult ure pending. Echocardiogram shows EF of 58%. Mitral annular calcification. Moderate aortic stenosi s. No aortic regurg. Impaired left ventricular relaxation. Assessment: An 87-year-old female with; 1.Left femoral neck fracture, status post mechanical fall. Appreciate Dr. Moore's input. Going for surgery today. The patient has been cleared for surgery. Echocardiogram reviewed, does show mo derate aortic stenosis. Spoke with Dr. Garcia. 2.Pneumonia. Continue IV antibiotics. Blood cultures and sputum cultures are pending. We will fol low up with chest x-ray in a.m. CT did not show any acute infiltrates; however, clinically the patie nt does have symptoms consistent with pneumonia. 3.Recurrent fall. We will hold benzodiazepines. Fall precautions. 4.Osteoporosis. 5.Diabetes mellitus type 2, bkr-[id number] with hyperglycemia. Continue sliding scale insuli n. Accu-Cheks. 6.Hypothyroidism, Synthroid. 7.Gout. 8.Generalized anxiety disorder, stable. Hold benzos. 9.History of breast cancer, currently in remission. Plan: Anticipate surgery. /TAMAR Voice ID: [id number] Report ID: [id number]
--- NOTE | 2017-10-13 13:32 | RAD REPORT ---
EXAM DESCRIPTION: RAD - Chest Single View - 10/13/2017 1:27 pm CLINICAL HISTORY: Pneumonia COMPARISON: None. FINDINGS: Portable technique limits examination quality. The lungs are grossly clear. The heart is upper limit normal in size. No displaced fractures. IMPRESSION: No acute intrathoracic process suspected.
[2017-10-13] MEDS ORDERED: NA CHLORIDE 0.9% 1,000 ML ONE (15:26)
[2017-10-13] MEDS ORDERED: PROPOFOL 200 MG/20 ML VIAL IV ONE (15:54)
[2017-10-13] MEDS ORDERED: ROCURONIUM 50 MG/5 ML VIAL IV ONE (15:54)
[2017-10-13] MEDS ORDERED: Phenylephrine HCl 10 MG/ML 1 ML VIAL ONE (15:55)
[2017-10-13] MEDS ORDERED: TRANEXAMIC ACID 1,000 MG in NA CHLORIDE 0.9% 50 ML IV ONE ×4 (16:00)
[2017-10-13] MEDS ORDERED: CLINDAMYCIN INJ 900 MG in NA CHLORIDE 0.9% 50 ML IV ONE (16:00)
[2017-10-13] MEDS ORDERED: FENTANYL CITR 100 MCG/2 ML ONE (16:24)
[2017-10-13] MEDS ORDERED: KETOROLAC 30 MG/ML INJ ONE (16:39)
[2017-10-13] MEDS ORDERED: DEXAMETHASONE 10 MG/ML VIAL ONE (16:39)
[2017-10-13] MEDS ORDERED: ONDANSETRON HCL 40 MG/20 ML VIAL ONE (16:39)
[2017-10-13] MEDS ORDERED: GLYCOPYRROLATE 0.2 MG/ML SYR ONE (17:35)
[2017-10-13] MEDS ORDERED: NEOSTIGMINE 1 MG/ML -10 ML VIAL ONE (17:36)
--- NOTE | 2017-10-13 18:03 | P.BOP ---
Preoperative diagnosis: left femoral neck fracture Postoperative diagnosis: same Primary procedure: left bipolar hemiarthoplasty Estimated blood loss: 50ccs Anesthesia: General Transferred to: Recovery Room Condition: Good
[2017-10-13] MEDS ORDERED: MORPHINE 4 MG/ML SYR ONE (18:33)
[2017-10-14] MEDS: CLINDAMYCIN INJ 900 MG in NA CHLORIDE 0.9% 50 ML IV SCH ×2 (00:21→06:56)
[2017-10-14] MEDS: NA CHLORIDE 0.9% 1,000 ML IV SCH (01:00)
--- NOTE | 2017-10-14 04:41 | OP ---
Date of Procedure: 10/13/2017 Surgeon: Negrito Moore MD Preoperative Diagnosis: Left hip femoral neck fracture, which is displaced. Postoperative Diagnosis: Left hip femoral neck fracture, which is displaced. Procedure: Left hip bipolar hemiarthroplasty using cemented Biomet fracture stem. Estimated Blood Loss: 50 cc. Complications: There were no complications. Specimen: No pathology specimens sent. Indication For Operation: Ms. Hauser is an 87-year-old female who unfortunately fell injuring her left lower extremity. She was seen in the emergency department. She was ruled out for other injurie s; however, x-rays demonstrated displaced femoral neck fracture on the left. She has been cleared fo r surgical procedure by the medical team and all risks, benefits, and alternatives to the left hip bi polar hemiarthroplasty have been discussed with the patient and the family. They state they understa nd all risks, benefits, alternatives, and agrees to proceed. Description Of Procedure: The patient was taken to the operating room and replaced in supine positio n. General anesthesia obtained by the staff. Following this, the patient was then placed on the opera tive table. She was then placed right side down with an axillary roll with all bony prominences bein g checked. She was appropriately positioned using the hip positioners. Her left lower extremity was then prepped and draped in the usual sterile fashion for the procedure. Following this, a standard posterolateral incision was taken down carefully through skin and soft tissues. Meticulous hemostasi s being maintained using Bovie electrocautery. A stab wound was made into the fascia with palpation of the gluteal tendon to ensure this is the correct level and position. The fascial incision was the n taken up to near the tip of the greater trochanter where the fibers of gluteus haydee were encount ered. The fibers of gluteus haydee were then spread using finger pressure. There was significant a mount of tenacious bursa which was removed. This allowed for visualization of the external rotators and the external rotators and capsule were then taken down carefully as a unit and tagged for later r epair. The fracture was easily seen and slightly lower than standard femoral neck cut was made. The pieces of the neck were removed. The femoral head was then removed and sized with ring gauge to a s ize 45. Following this, the acetabulum was cleared of all soft tissues. Teres ligament was cauteriz ed. Attention was then turned back to the femur where a icebox man was used to lateralize the entry portal. This was followed by cylindrical reamers up to a size 11. The broaching was then used up to a size 9, did not appear that size 10 would be able to pass the neck. Therefore, decision was made to move forward with size 7 cemented stem. The femoral canal was then copiously irrigated until the fluid runs clear. The bone plug was placed to appropriate depth and it was again irrigated to ensure that this was clear of any fat droplets. Third generation cementation technique was then used for p lacement of Simplex cement with gentamicin. The stem was then placed without difficulty in proper ve rsion, was held in place until the cement hardened. It was then trialed with a size 45. It appeared that the +6 ball was most appropriate, allowing for best stability without limiting extension. This was selected as a final implant, it was then tapped onto to the neck. Care was taken to ensure ther e were no foreign bodies or adherent cement and the hip was then relocated without difficulty. It wa s found to be stable with 90 degrees flexion, full adduction, and 30 degrees at least of internal rot ation. The wound was again irrigated and the external rotators and capsule were then repaired back t o the greater trochanter via bone tunnels. The fascia was then closed in a watertight fashion using heavy Vicryl sutures, was followed by irrigation and closure of the skin using Vicryl sutures, follow ed by marvin. The patient was then placed in Aquacel dressing and abduction pillow, awakened, and t aken to recovery room in good condition. There were no complications. /TAMAR Voice ID: [id number] Report ID: [id number]
[2017-10-14 05:32] LABS: Absolute Lymphocytes (CBC) 0.5 K/uL (0.7-4.9); Absolute Monocytes 0.3 K/uL (0.1-1.3); Absolute Neutrophil 3.9 K/uL (1.8-8.0); Basophils % 0.1 % (0-1.3); Hematocrit 29.2 % (36.0-45.0); Lymphocytes % 10.7 % (15.3-44.8); Monocytes % 5.4 % (3.3-12.3); RBC Red Blood Cell Count 3.25 M/uL (3.86-4.86)
[2017-10-14 06:17] LABS: Albumin 2.5 g/dL (3.2-5.5); Bilirubin Total 0.5 mg/dL (0.3-1.2); Potassium 4.2 mEq/L (3.6-5.0); Protein, Total 5.4 g/dL (6.0-8.3)
[2017-10-14] MEDS: LEVOTHYROXINE SOD 0.1 MG TAB PO SCH (06:56)
--- NOTE | 2017-10-14 07:22 | EKG ---
Test Date: 2017-10-13 Test Time: 12:44:44 Mule Rider: TYESHA MEASUREMENT RESULTS: Intervals: Rate: 106 MN: 202 QRSD: 76 QT: 322 QTc: 427 [place]: P: 75 MN: 202 QRS: 27 T: 54 INTERPRETIVE STATEMENTS: Sinus tachycardia and premature ventricular complexes or fusion complexes Cannot rule out Anterior infarct, age undetermined Abnormal ECG No previous ECG available for comparison Electronically Signed On 10-14-17 07:19:51 CDT by Dann Garcia
--- NOTE | 2017-10-14 08:34 | P.PN ---
Subjective Date of Service: 10/14/17 Primary Care Provider: Unknown Chief Complaint: Fall Subjective: Doing well (She is post op left hip surgery.) Physical Examination - Vital Signs Temperature: 97 F Blood Pressure: 117/59 Pulse: 67 Respirations: 13 Pulse Ox (%): 100 - Physical Exam General: Alert, In no apparent distress, Oriented x3, Cooperative HEENT: Atraumatic Neck: Supple Respiratory: Clear to auscultation bilaterally, Normal air movement Cardiovascular: Normal pulses, Regular rate/rhythm Gastrointestinal: Normal bowel sounds, Soft and benign, Non-distended, No tenderness, No masses, No rebound, No guarding Musculoskeletal: No erythema, No tenderness, No warmth Integumentary: No tenderness/swelling, No erythema, No warmth, No cyanosis Neurological: Normal speech, Normal strength at 5/5 x4 extr, Normal tone, Normal affect Lymphatics: No axilla or inguinal lymphadenopathy - Studies Medications List Reviewed: Yes Assessment & Plan - Problems (Diagnosis) (1) Allergic rhinitis Current Visit: Yes Status: Chronic Plan: Will provide incentive spirometer. Will provide fluffs. No pneumonia noted on CT scan and chest x-ray. Will discontinue antibiotic therapy. Will recheck chest x-ray today. Will wean off oxygen. Qualifiers: Allergic rhinitis trigger: unspecified Allergic rhinitis seasonality: unspecified seasonality Qualified Code(s): J30.9 - Allergic rhinitis, unspecified (2) Diabetes mellitus Current Visit: Yes Status: Chronic Plan: Will provide sliding scale. Will continue with ADA diet. Will check A1c. Continue with her medication. Qualifiers: Diabetes mellitus type: type 2 Diabetes mellitus intermission coordinator insulin use: without mcc use Diabetes mellitus complication status: with other specified complication Qualified Code(s): E11.69 - Type 2 diabetes mellitus with other specified complication (3) Hypothyroidism Current Visit: Yes Status: Chronic Plan: Will continue with her medication. Qualifiers: Hypothyroidism type: unspecified Qualified Code(s): E03.9 - Hypothyroidism , unspecified (4) Anxiety Current Visit: Yes Status: Chronic Plan: Will hold benzodiazepines. Will monitor closely. (5) Anemia Current Visit: Yes Status: Acute Plan: Postop surgery. Will monitor this closely. Will check iron and B12 levels. Qualifiers: Anemia type: other cause (6) Fracture of femoral neck, left Current Visit: Yes Status: Acute Plan: Patient with recent fall. Fracture repaired. Will transfer patient to the floor. Will start physical therapy. Patient will be a good candidate for inpatient rehab. Qualifiers: Encounter type: initial encounter Fracture type: closed Qualified Code(s) : S72.002A - Fracture of unspecified part of neck of left femur, initial encounter for closed fracture (7) Hypertension Current Visit: Yes Status: Chronic Plan: Will continue with her medication. Qualifiers: Hypertension type: essential hypertension Qualified Code(s): I10 - Essential (primary) hypertension (8) Fall Current Visit: Yes Status: Acute Plan: Continue as above. Will physical therapy ambulate. Patient will be a good candidate for inpatient rehab. Qualifiers: Encounter type: initial encounter Qualified Code(s): W19.XXXA - Unspecified fall, initial encounter Discharge Plan: Other (inpatient rehab) Plan to discharge in: 24 Hours Time Spent Managing Pts Care (In Minutes): 55
[2017-10-14] MEDS: INSULIN -REGULAR HUMAN 50 UNIT/0.5 ML ML SQ SCH ×4 (08:46→21:00)
[2017-10-14] MEDS: GLIMEPIRIDE 2 MG TABLET PO SCH ×2 (08:46→17:08)
[2017-10-14] MEDS: GABAPENTIN 300 MG CAP PO SCH ×2 (08:46→21:33)
[2017-10-14] MEDS: LISINOPRIL 20 MG TAB PO SCH (08:47)
[2017-10-14] MEDS: FLUTICASONE 50MCG NASAL SPRAY NAS SCH ×2 (08:47→21:33)
--- NOTE | 2017-10-14 09:12 | RAD REPORT ---
EXAM DESCRIPTION: RAD - Chest Single View - 10/14/2017 8:43 am CLINICAL HISTORY: Cough, shortness of breath. COMPARISON: 10/13/2017 FINDINGS: Portable technique limits examination quality. Mildly elevated right hemidiaphragm is noted. No gross pulmonary infiltrate. The heart is mildly prom inent in size. No displaced fractures. IMPRESSION: Stable chest since 10/13/2017.
[2017-10-14 09:40] LABS: Ferritin 199.9 ng/ml (11.0-306.8)
[2017-10-14 09:56] LABS: A1c Component 0.42 mg/dL; Hemoglobin A1c 6.1 % (4-6.0)
[2017-10-14] MEDS ORDERED: TRAMADOL HCL 50 MG TAB PO PRN (11:01)
[2017-10-14] MEDS: HYDROCODONE/APAP 7.5/325 MG TAB PO PRN ×2 (12:07→20:02)
[2017-10-14] MEDS: ENOXAPARIN 40 MG/0.4 ML SQ SCH (17:08)
--- NOTE | 2017-10-15 01:36 | PN ---
Date of Progress Note: 10/13/2017 History: Ms. Hauser was seen by Dr. Dalton for cardiac clearance for left femoral fracture. Echoc ardiogram was done. This was pending prior to cardiac clearance. Echocardiogram showed a normal eje ction fraction with moderate aortic stenosis and no wall motion abnormalities. We will consider the patient at lower risk for perioperative mortality. We will be available for questions if the need ar ise. We will continue a normal medical regimen. Telemetry showed no arrhythmias. MARCO/TAMAR Voice ID: [id number] Report ID: [id number]
--- NOTE | 2017-10-15 05:18 | PN ---
Date of Progress Note: 10/14/2017 The patient is seen today. She is afebrile. Her white count is 4.7, her hemoglobin is 9.7, platelet count is 154. Her dressing is clean, dry, and intact. Her heels are nontender. EHL, tibialis ante rior, and plantar flexion are strong. She has walked in the antoine with physical therapy and family sa ys that she is doing very well. I would discontinue her Doyle as soon as possible; otherwise, we wou ld recommend anticoagulation as indicated. Continue posterior hip precautions. SE/MODL Voice ID: [id number] Report ID: [id number]
[2017-10-15 05:55] LABS: Magnesium 2.1 mg/dL (1.8-2.5); Potassium 4.2 mEq/L (3.6-5.0)
[2017-10-15] MEDS: LEVOTHYROXINE SOD 0.1 MG TAB PO SCH (06:07)
[2017-10-15 07:18] LABS: Absolute Lymphocytes (CBC) 1.9 K/uL (0.7-4.9); Absolute Neutrophil 5.6 K/uL (1.8-8.0); Basophils % 0.9 % (0-1.3); Eosinophils % 0.4 % (0-4.4); Hematocrit 30.4 % (36.0-45.0); Lymphocytes % 21.9 % (15.3-44.8); MCH 30.3 pg (27.0-35.0); MCV 88.8 fL (80-100); MPV 10.2 fL (7.6-11.3); Monocytes % 10.9 % (3.3-12.3); RBC Red Blood Cell Count 3.43 M/uL (3.86-4.86)
[2017-10-15 07:19] LABS: Absolute Monocytes 0.9 K/uL (0.1-1.3)
[2017-10-15] MEDS: INSULIN -REGULAR HUMAN 50 UNIT/0.5 ML ML SQ SCH ×4 (07:30→20:56)
[2017-10-15 07:47] LABS: Blood Morphology Comment NOT SEEN (NOT SEEN); Platelet Estimate ADEQ; Urine White Blood Cell Casts OK
--- NOTE | 2017-10-15 07:52 | P.PN ---
Subjective Date of Service: 10/15/17 Primary Care Provider: Unknown Chief Complaint: Fall Subjective: Other (Patient was somewhat agitated last night. Daughter at bedside. Patient stable this morning. Patient usually takes lorazepam at night.) Physical Examination - Vital Signs Temperature: 98.2 F Blood Pressure: 140/65 Pulse: 97 Respirations: 20 Pulse Ox (%): 92 - Physical Exam General: Alert, In no apparent distress, Cooperative HEENT: Atraumatic Neck: Supple Respiratory: Clear to auscultation bilaterally, Normal air movement Cardiovascular: Normal pulses, Regular rate/rhythm Gastrointestinal: Normal bowel sounds, Soft and benign, Non-distended, No tenderness, No masses, No rebound, No guarding Musculoskeletal: No erythema, No tenderness, No warmth Integumentary: No tenderness/swelling, No erythema, No warmth, No cyanosis Neurological: Normal speech, Normal strength at 5/5 x4 extr, Normal tone, Normal affect Urinary: Doyle catheter - Studies Medications List Reviewed: Yes Assessment & Plan - Problems (Diagnosis) (1) Allergic rhinitis Current Visit: Yes Status: Chronic Plan: Will provide incentive spirometer. Will provide nasal spray. No pneumonia noted on CT scan and chest x-ray. Will discontinue antibiotic therapy. X-ray yesterday showed no infiltrate. Will wean off oxygen. Qualifiers: Allergic rhinitis trigger: unspecified Allergic rhinitis seasonality: unspecified seasonality Qualified Code(s): J30.9 - Allergic rhinitis, unspecified (2) Diabetes mellitus Current Visit: Yes Status: Chronic Plan: Will provide sliding scale. Will continue with ADA diet. Will check A1c. Will discontinue her medication due to risk of hypoglycemia. Qualifiers: Diabetes mellitus type: type 2 Diabetes mellitus moth exterminator insulin use: without moth exterminator use Diabetes mellitus complication status: with other specified complication Qualified Code(s): E11.69 - Type 2 diabetes mellitus with other specified complication (3) Hypothyroidism Current Visit: Yes Status: Chronic Plan: Will continue with her medication. Qualifiers: Hypothyroidism type: unspecified Qualified Code(s): E03.9 - Hypothyroidism , unspecified (4) Anxiety Current Visit: Yes Status: Chronic Plan: Patient uses lorazepam at night. Will restart at a lower dose as needed. (5) Anemia Current Visit: Yes Status: Acute Plan: Postop surgery. Will monitor this closely. Iron deficiency noted, will add multi vitamin with iron. Qualifiers: Anemia type: other cause (6) Fracture of femoral neck, left Current Visit: Yes Status: Acute Plan: Patient with recent fall. Fracture repaired. Pain well controlled peer will continue with physical therapy. Patient being evaluated for inpatient rehab. Will Dc Doyle catheter once ambulating well. Qualifiers: Encounter type: initial encounter Fracture type: closed Qualified Code(s) : S72.002A - Fracture of unspecified part of neck of left femur, initial encounter for closed fracture (7) Hypertension Current Visit: Yes Status: Chronic Plan: Will continue with her medication. Qualifiers: Hypertension type: essential hypertension Qualified Code(s): I10 - Essential (primary) hypertension (8) Fall Current Visit: Yes Status: Acute Plan: Continue as above. Will physical therapy ambulate. Patient will be a good candidate for inpatient rehab. Qualifiers: Encounter type: initial encounter Qualified Code(s): W19.XXXA - Unspecified fall, initial encounter (9) Agitation Current Visit: Yes Status: Acute Plan: Mild agitation noted last night. Will provide lorazepam at night as needed. Patient will need to have some rest today. Discharge Plan: Other (Inpatient rehab) Plan to discharge in: Greater than 2 days Time Spent Managing Pts Care (In Minutes): 55
[2017-10-15] MEDS: FLUTICASONE 50MCG NASAL SPRAY NAS SCH ×2 (08:15→20:56)
[2017-10-15] MEDS: GABAPENTIN 300 MG CAP PO SCH ×2 (08:16→20:56)
[2017-10-15] MEDS: LISINOPRIL 20 MG TAB PO SCH (08:16)
[2017-10-15] MEDS: HYDROCODONE/APAP 7.5/325 MG TAB PO PRN ×2 (08:18→18:25)
[2017-10-15] MEDS ORDERED: MULTIVITAMIN TAB PO SCH (09:00)
[2017-10-15] MEDS: ENOXAPARIN 40 MG/0.4 ML SQ SCH (17:16)
--- NOTE | 2017-10-15 20:14 | PN ---
Date of Progress Note: 10/15/2017 The patient is seen today. However, she is in the restroom, not able to be assessed directly. Her f geovannyy is in the room and says that she is doing extremely well and she has been afebrile. Her hemogl obin is 10.4, her platelets are 205. Discussed with the family that her plan apparently is to move t o inpatient rehab on Tuesday. All the family's questions have otherwise been answered. If the patien t has any questions or difficulties, they will let me know. MOMO Voice ID: [id number] Report ID: [id number]
[2017-10-15] MEDS: LORAZEPAM 0.5 MG TABLET PO PRN (22:15)
[2017-10-16] MEDS: HYDROCODONE/APAP 7.5/325 MG TAB PO PRN ×3 (03:59→18:16)
[2017-10-16] MEDS: LEVOTHYROXINE SOD 0.1 MG TAB PO SCH (05:42)
[2017-10-16 05:55] LABS: Absolute Lymphocytes (CBC) 1.3 K/uL (0.7-4.9); Absolute Monocytes 0.4 K/uL (0.1-1.3); Absolute Neutrophil 2.2 K/uL (1.8-8.0); Basophils % 0.5 % (0-1.3); Eosinophils % 3.2 % (0-4.4); Hematocrit 26.7 % (36.0-45.0); Lymphocytes % 31.6 % (15.3-44.8); MCH 30.3 pg (27.0-35.0); MCV 89.5 fL (80-100); MPV 9.2 fL (7.6-11.3); Monocytes % 10.4 % (3.3-12.3); RBC Red Blood Cell Count 2.98 M/uL (3.86-4.86)
[2017-10-16 06:25] LABS: Magnesium 1.9 mg/dL (1.8-2.5); Potassium 3.9 mEq/L (3.6-5.0)
[2017-10-16] MEDS ORDERED: POTASSIUM CL SA 10 MEQ TAB PO ONE (07:30)
[2017-10-16] MEDS: INSULIN -REGULAR HUMAN 50 UNIT/0.5 ML ML SQ SCH ×4 (07:30→21:00)
--- NOTE | 2017-10-16 07:50 | P.PN ---
Subjective Date of Service: 10/16/17 Primary Care Provider: Unknown Chief Complaint: Fall Subjective: Doing well (Patient doing well postop. She slept better last night. She did work with physical therapy yesterday.) Physical Examination - Vital Signs Temperature: 97.9 F Blood Pressure: 163/81 Pulse: 96 Respirations: 18 Pulse Ox (%): 95 - Physical Exam General: Alert, In no apparent distress, Oriented x3, Cooperative HEENT: Atraumatic, Mucous membr. moist/pink Neck: Supple, No Thyromegaly Respiratory: Clear to auscultation bilaterally, Normal air movement Cardiovascular: Normal pulses, Regular rate/rhythm Gastrointestinal: Normal bowel sounds, Soft and benign, Non-distended, No tenderness, No masses, No rebound, No guarding Musculoskeletal: No erythema, No tenderness, No warmth Integumentary: No tenderness/swelling, No erythema, No warmth, No cyanosis Neurological: Normal speech, Normal strength at 5/5 x4 extr, Normal tone, Normal affect - Studies Medications List Reviewed: Yes Assessment & Plan - Problems (Diagnosis) (1) Allergic rhinitis Current Visit: Yes Status: Chronic Plan: Patient encouraged to use incentive spirometer. Will continue with nasal spray. Will wean off oxygen. Patient to continue to work with physical therapy. Anticipate approval for inpatient rehab tomorrow. Qualifiers: Allergic rhinitis trigger: unspecified Allergic rhinitis seasonality: unspecified seasonality Qualified Code(s): J30.9 - Allergic rhinitis, unspecified (2) Diabetes mellitus Current Visit: Yes Status: Chronic Plan: Her diabetic medication glimepiride was discontinued due to low blood sugar yesterday. Patient encouraged to increase oral intake. Will continue sliding scale. A1c 6.1. At discharge glimepiride may need to be at a reduced level. Hypoglycemia education will be provided. Qualifiers: Diabetes mellitus type: type 2 Diabetes mellitus mcc insulin use: without mcc use Diabetes mellitus complication status: with other specified complication Qualified Code(s): E11.69 - Type 2 diabetes mellitus with other specified complication (3) Hypothyroidism Current Visit: Yes Status: Chronic Plan: Will continue with her medication. Qualifiers: Hypothyroidism type: unspecified Qualified Code(s): E03.9 - Hypothyroidism , unspecified (4) Anxiety Current Visit: Yes Status: Chronic Plan: Patient slept better last night. Will continue with lorazepam as needed. (5) Anemia Current Visit: Yes Status: Acute Plan: Postop surgery. Hemoglobin slightly decreased. Iron deficiency noted. Will provide iron supplementation. Will monitor hemoglobin. Qualifiers: Anemia type: other cause (6) Fracture of femoral neck, left Current Visit: Yes Status: Acute Plan: Patient with recent fall. Fracture repaired. Pain well controlled. Patient will continue with physical therapy. Patient being evaluated for inpatient rehab. Patient will be a good candidate for inpatient rehab. Will Dc Doyle catheter once ambulating well. Qualifiers: Encounter type: initial encounter Fracture type: closed Qualified Code(s) : S72.002A - Fracture of unspecified part of neck of left femur, initial encounter for closed fracture (7) Hypertension Current Visit: Yes Status: Chronic Plan: Will continue with her medication. Qualifiers: Hypertension type: essential hypertension Qualified Code(s): I10 - Essential (primary) hypertension (8) Fall Current Visit: Yes Status: Acute Plan: Continue as above. Will continue with physical therapy. Patient will be a good candidate for inpatient rehab. Qualifiers: Encounter type: initial encounter Qualified Code(s): W19.XXXA - Unspecified fall, initial encounter (9) Agitation Current Visit: Yes Status: Acute Plan: Patient slept much better last night. No complaints noted. Discharge Plan: Other (inpatient rehab) Plan to discharge in: 24 Hours Time Spent Managing Pts Care (In Minutes): 55
[2017-10-16] MEDS: GABAPENTIN 300 MG CAP PO SCH ×2 (09:55→21:01)
[2017-10-16] MEDS: FLUTICASONE 50MCG NASAL SPRAY NAS SCH ×2 (09:55→21:01)
[2017-10-16] MEDS: FERROUS SULFATE 325 MG TAB PO SCH ×2 (09:55→21:01)
[2017-10-16] MEDS: LISINOPRIL 20 MG TAB PO SCH (10:06)
[2017-10-16] MEDS: ENOXAPARIN 40 MG/0.4 ML SQ SCH (16:42)
[2017-10-16 19:54] LABS: Hematocrit 31.7 % (36.0-45.0)
[2017-10-16] MEDS: LORAZEPAM 0.5 MG TABLET PO PRN (21:01)
[2017-10-17] MEDS: LEVOTHYROXINE SOD 0.1 MG TAB PO SCH (05:33)
[2017-10-17 05:39] LABS: Absolute Lymphocytes (CBC) 2.1 K/uL (0.7-4.9); Absolute Monocytes 0.5 K/uL (0.1-1.3); Absolute Neutrophil 2.4 K/uL (1.8-8.0); Basophils % 0.2 % (0-1.3); Eosinophils % 4.2 % (0-4.4); Hematocrit 32.2 % (36.0-45.0); Lymphocytes % 40.4 % (15.3-44.8); MCH 29.5 pg (27.0-35.0); MCV 90.7 fL (80-100); MPV 9.9 fL (7.6-11.3); Monocytes % 9.9 % (3.3-12.3); RBC Red Blood Cell Count 3.55 M/uL (3.86-4.86)
[2017-10-17 05:41] LABS: Magnesium 1.9 mg/dL (1.8-2.5); Potassium 4.2 mEq/L (3.6-5.0)
[2017-10-17] MEDS: INSULIN -REGULAR HUMAN 50 UNIT/0.5 ML ML SQ SCH ×2 (07:30→11:30)
[2017-10-17] MEDS: FLUTICASONE 50MCG NASAL SPRAY NAS SCH (09:00)
[2017-10-17] MEDS: GABAPENTIN 300 MG CAP PO SCH (10:07)
[2017-10-17] MEDS: FERROUS SULFATE 325 MG TAB PO SCH (10:07)
[2017-10-17] MEDS: LISINOPRIL 20 MG TAB PO SCH (10:07)
[2017-10-17] MEDS: HYDROCODONE/APAP 7.5/325 MG TAB PO PRN (10:13)
--- NOTE | 2017-10-17 14:17 | DS ---
Date of Discharge: 10/17/2017 Consultants: Dr. Dalton and Dr. Garcia with Cardiology, Dr. Moore with Orthopedics. Procedures: On 10/13/2017, left hip femoral neck fracture hemiarthroplasty. Admitting Diagnoses: 1.Left femoral neck fracture status post mechanical fall. 2.Pneumonia. 3.Recurrent falls. 4.Osteoporosis. 5.Diabetes mellitus type 2, [id number]-kacqfqf-nuwargadv with hyperglycemia. 6.Hypothyroidism. 7.Gout. 8.Generalized anxiety disorder. 9.History of breast cancer, in remission. 10.Moderate aortic stenosis. Discharge Diagnoses: 1.Left hip fracture status post hemiarthroplasty. The patient will be on Lovenox for deep venous th rombosis prophylaxis. 2.Allergic rhinitis, improved. 3.Pneumonia, resolved. 4.Diabetes mellitus type 2 without long-term use of insulin, now with hypoglycemia when the right do se adjusted. 5.Hypothyroidism. 6.Generalized anxiety disorder, on benzodiazepines. 7.Anemia secondary to postop surgery, on iron. 8.Hypertension, essential, stable. 9.Status post mechanical fall. 10.Agitation. Hospital Course: The patient is an 87-year-old female, who came in with left femoral neck fracture s tatus post mechanical fall. Orthopedics was consulted. The patient was taken to the OR for ORIF aft er clearance from Cardiology. The patient does have moderate aortic stenosis. Therefore, echocardio gram was done, which showed normal ejection fraction. The patient also had some clinical signs and s ymptoms of pneumonia with cough with subjective fever, chills, sputum production, ill contacts. The patient was treated with IV antibiotics. Blood cultures were obtained. Blood cultures remained nega tive. Her chest x-ray and CT scan did not show any acute infiltrates. The patient did better with h er breathing and her cough had improved as well with symptomatic treatment. She did have some allerg ic rhinitis for which she was given nasal spray. The patient's diabetes remained stable. She did navarrete ve some hypoglycemic episodes and her glimepiride was adjusted. The patient continued to do well ove r the course of the hospital stay. Her labs remained stable. She did have some postoperative anemia and was started on iron. Her hemoglobin A1c was 6.1%. The patient was then seen by Physical Therap y and started working with them. After the surgery, she did well. [facility]. The patient's blood cultures remained negative. Her repeat chest x-ray did not show any infiltrates. She was breathing well. She was stable hemodynamically. The patient was cleared for discharge from Dr. Moore's standpoint as well as Cardiology standpoint. The [facility] ient was then discharged to inpatient rehab. Activity: As per rehab. Medications: As per medication reconciliation list. Followup: Follow up with primary care physician in 1-2 weeks. Follow up with Orthopedic surgeon, Dr Diego Moore in 2 weeks for wound check. Return to ER for worsening condition. Total time spent discharging the patient was 41 minutes. For physical exam findings, please see progress note dictated on the day of discharge. Diet: Diabetic. SA/MODL Voice ID: [id number] Report ID: [id number]
--- NOTE | 2017-10-17 14:47 | PN ---
Date of Progress Note: 10/17/2017 Subjective: The patient is seen and examined. Chart reviewed and case discussed with RN. The patient states she is doing well. Pain is significantly improved. She has been able to physical therapy today. Review of Systems: Negative except as above. Medications: Reviewed. Physical Examination: Vital Signs: Temperature 97.4, heart rate 87, , respirations 12, O2 97% on 2 L via nasal cannula. General: Awake, alert, oriented x3. Elderly female, somewhat ill-appearing, otherwise not in any acute distress. CV: S1, S2. Regular rate and rhythm. The patient has 3/6 holosystolic murmur. Respiratory: Moving air well bilaterally. No wheezing. No stridor. No use of accessory muscles. Gastrointestinal: Abdomen is soft, nontender, and nondistended. Positive bowel sounds. Extremities: No clubbing, cyanosis, edema. Musculoskeletal: Left hip incision is clean, dry, intact. Neurologic: Nonfocal. Laboratory Data: Sodium 141, potassium 4.3, chloride 105, CO2 28, BUN 13, creatinine 0.74, glucose 138, calcium 8.6, magnesium 1.9. WBC 5.3, H and H 10.5 and 32.2, platelets 246. Blood cultures, no growth to date. Urine culture shows no growth. Assessment And Plan: An 87-year-old female with: 1. Status post mechanical fall. 2. Fracture of left femoral neck status post open reduction and internal fixation, doing well. We will continue with physical therapy and await inpatient rehab. Transfer once accepted. 3. Allergic rhinitis. Continue nasal spray without oxygen. 4. Diabetes mellitus type 2. We will try to stop due to hypoglycemia. Hemoglobin A1c is 6.1%. No long-term use of insulin. 5. Hypothyroidism. 6. Generalized anxiety disorder. Lorazepam as needed. 7. Anemia likely due to acute blood loss with surgery. The patient has a history of iron deficiency. Continue with iron supplementation. 8. Essential hypertension, stable. Continue medications. 9. Acute agitation, resolved. Plan: Discharge to inpatient rehab once accepted. GI and DVT prophylaxis with Lovenox and PPI. /MODBecca Voice ID: [id number] Report ID: [id number] [facility]
== END 2017-10-17 15:35 | DRG 469 ==
LOC: ER 04:13 → EDBD 04:13 → ERHOLD 08:07 → EDBD 08:07 → 2ND 10:16 → 3RD-ICU 10-13 18:59 → 2ND 10-14 12:53
PROVIDERS: ADMIT Family Medicine; ATTEND Family Medicine
PROC: 0SRS0J9 Replacement of Left Hip Joint, Femoral Surface with Synthetic Substitute, Cemented, Open Approach (ICD-10-PCS; principal; 2017-10-13 15:30)
DX: S72.002A Fracture of unspecified part of neck of left femur, initial encounter for closed fracture (principal); J18.9 Pneumonia, unspecified organism; D62 Acute posthemorrhagic anemia; E11.9 Type 2 diabetes mellitus without complications; M10.9 Gout, unspecified; E03.9 Hypothyroidism, unspecified; W19.XXXA Unspecified fall, initial encounter; M81.0 Age-related osteoporosis without current pathological fracture; F41.1 Generalized anxiety disorder; J30.9 Allergic rhinitis, unspecified; R45.1 Restlessness and agitation; Z85.3 Personal history of malignant neoplasm of breast
CPT/HCPCS: 36415; 51702; 70450; 71045; 71250; 72125; 72170; 80048; 80053; 81003; 81015; 82607; 82728; 82962; 83036; 83540; 83735; 84466; 85014; 85018; 85025; 86850; 86900; 86901; 87040; 87086; 87088; 88305; 88311; 93005; 93306; 94760; 96365; 96372; 96375; 97163; 99285; J0456; J0696; J1100; J1650; J2270; J2370; J2405; J2710; J3010; J7030

== ENCOUNTER 2017-10-17 15:15 | Inpatient (IN) | payer OTHER ==
--- NOTE | 2017-10-17 10:59 | R.PREADM ---
SCREENING DATE AND TIME 10/17/2017 09:37 (CDT) ANTICIPATED REHAB ADMISSION DATE 10/17/2017 REFERRING FACILITY [facility] REFERRAL DATE AND TIME 10/14/2017 15:54 (CDT) ACUTE ADMIT DATE 10/12/2017 Previous Rehabilitation(s): No. REFERRING PHYSICIAN [facility] CLINICAL LIAISON Thomas Medina PHYSICIAN REVIEWER Dr. Dave Webber M.D. MR# [id number] NAME GEOVANNA BUSBY ADDRESS [address] [place] [address] PHONE [facility] [id number] DATE OF 1930 AGE 87 SSN# [id number] GENDER female MARITAL STATUS RACE white ADMIT FROM 02 - [facility] PRE-HOSPITAL LIVING SETTING 01 - Home (private home/apt. board/care, assisted living, custodial, transitional living) HOME TYPE AND DETAILS Type of home: single family house # of levels in the residence: 1 # of steps within the residence: 0 # of steps to enter the residence: 0 PRE-HOSPITAL LIVING WITH Family/Relatives FAMILY SUPPORT Yes PRIMARY FAMILY CONTACT NAME Cortney Busby PRIMARY FAMILY CONTACT PHONE PHONE PRIMARY FAMILY CONTACT ON ADM.? no IS PRIMARY FAMILY CONTACT AUTH. REP.? no 1ST EMERGENCY CONTACT Cortney Busby 1ST CONTACT PHONE PHONE 1ST CONTACT ON ADM. no IS 1ST CONTACT AUTH. REP.? no PHONE 2ND CONTACT ON ADM.? no PATIENT EMPLOYMENT STATUS Retired (for age) PATIENT EMPLOYER No Employer PAYOR INFORMATION: 1ST PAYOR NAME MEDICARE 1ST PAYOR INJURY/ILLNESS DUE TO ACCIDENT? No ANOTHER GREEN PARTY RESPONSIBLE? No PRIMARY REHAB/ACUTE DIAGNOSIS: Left Femoral Neck Fracture ONSET DATE 10/12/2017 REHAB IMPAIRMENT CATEGORY (MI): 07 Fracture of LE (FracLE) does NOT meet 60% rule AFFECTED EXTREMITIES: LLE PRIMARY DIAGNOSIS-RELATED SURGERIES: Left Hip Arthroplasty COMORBID REHAB/ACUTE DIAGNOSES: - Non-Tiered Type 2 diabetes mellitus with diabetic neuropathy, unspecified [E1140] - N/A Gout Hypothyroidism Breast cancer Chronic Liver Disease SUMMARY OF ACUTE HOSPITALIZATION: Pt. is a 87 yo Right-handed white female. Her impairment category is Orthopaedic Disorders 08 - Femur (Shaft) Fracture (08.2). Pre-morbidly, Pt. was independent/mod-I in Transfers Control, Communication, Social Cognition, Self-C are, Locomotion, and Sphincter Control; and she had good Sphincter Control. Currently, she has deficits of Safety Awareness, Transfers Control, Balance, Self-Care, Locomotion, a nd Endurance. Pt. is now referred to [facility] for acute in-patient rehabilitation in order to maximize patient's functional independence in activities of daily living, strength, ROM, and mobi lity. Patient has realistic goal of being discharged at assistance level 6-Leatha to reside at Home with Fam boyd/Relatives. PAST MEDICAL HISTORY Breast cancer Chronic Liver Disease Gout Hypothyroidism Type 2 diabetes mellitus with diabetic neuropathy, unspecified [E1140] PAST SURGICAL HISTORY: Lumpectomy MEDICATION ALLERGIES: Penicillin Sulfa ENVIRONMENTAL ALLERGIES: None Known - Substance Allergies None Known - Other Allergies None Known CODE STATUS: Full code WEIGHT/HEIGHT/BMI: WEIGHT 151 lbs HEIGHT 5' 6" BMI 24.4 DIET: - Diet Type Regular - Diet - Solid Texture Regular - Diet - Liquid Texture Regular - Tube Feed N/A SKIN DIAGRAM: Incision on Left upper leg; extent - small; stage - NS(Not Stageable). Treatment - Per Physician's Or ders. REVIEW OF SYSTEMS: - Gen Alert and awake Lying in bed No apparent distress Oriented to: person, time, and place - Vital Signs Temperature: 97 F SBP/DBP: 128/59 Pulse: 78 Resp: 16 Vital signs stable, afebrile - CVS RRR VITAL SIGNS Temperature: 97 F SBP/DBP: 128/59 Pulse: 78 Resp: 16 Vital signs stable, afebrile CURRENT SPHINCTER CONTROL: Pre-hospital bladder status: continent # of bladder accidents in the last 7 days prior to screenin Pre-hospital bowel status: continent # of bowel accidents in the last 7 days prior to screenin Last Bowel Movement Date: DETAILED CURRENT FUNCTIONAL STATUS: - Bladder accident frequency: Ind - No accidents in the past 7 days - Bowel accident frequency: Ind - No accidents in the past 7 days - Walking score based on distance walked: 2(5149ft) - Wheelchair score based on distance traveled: 0(N/A) FUNCTIONAL STATUS: - Self-Care A. Eating Ind sup B. Grooming Ind sup C. Bathing Ind sup D. Dressing - Upper Ind sup E. Dressing - Lower Ind sup F. Toileting Ind Susie - Sphincter Control G: Bladder control Ind Ind H: Bowel control Ind Ind - Transfers Control I. Bed/Chair/Wheelchair Ind Susie J. Toilet Ind Susie K. Tub/Shower Ind ADNO - Locomotion L. Walk/Wheelchair (C) Ind Susie L. Walk/Wheelchair (W) Ind Susie M. Stairs Ind ADNO - Communication N. Comprehension (B) Ind Leatha O. Expression (B) Ind Leatha - Social Cognition P. Social Interaction Ind Leatha Q. Problem Solving Ind Leatha R. Memory Ind Leatha - Endurance Fair - Balance Fair - Safety Awareness Fair CURRENT FUNC. DEFICITS: Safety Awareness, Transfers Control, Balance, Self-Care, Locomotion, and Endurance THERAPY NOTES FROM ACUTE CARE: Attached. SPECIAL NEEDS: - Safety Concerns Skin breakdown precautions needed due to skin breakdown risk PRECAUTIONS: - Weight Bearing Precaution WBAT left LE - Fall Precaution Bed and chair alarm PATIENT NEEDS ACTIVE AND ONGOING THERAPEUTIC INTERVENTION OF MULTIPLE THERAPY DISCIPLINES, INCLUDING: - Occupational Therapy Evaluate and Treat. - Physical Therapy Evaluate and Treat. PATIENT NEEDS CLOSE MEDICAL SUPERVISION BY A REHABILITATION PHYSICIAN FOR: Bowel and Bladder Management Coordination of Treatment Team Medical and Co-Morbidity Management Wound Care DVT Management Pain Management Diabetes Management PATIENT REQUIRES 24X7 REHAB NURSING FOR MEDICAL AND FUNCTIONAL MGT. OF THE FOLLOWING DEFICITS: ADL's Ambulation Bowel and Bladder Management Cognition Communication Disease Management Medication Management Patient/Family Education Providing Safe Environment Skin Integrity Transfers PATIENT REQUIRES INTENSIVE, COORDINATED INTERDISCIPLINARY APPROACH TO REHAB: Arranging Home Equipment/Services Discharge Planning Family Intervention/Training Sample Puller/Case Management PATIENT REHAB POTENTIAL: Expected level of measurable improvement will be of a practical value to patient's functional capacit y or adaptations to impairments Has a viable Discharge Plan Medically appropriate; condition is sufficiently stable to participate in intensive rehab program Patient is able and expected to receive 3 hours of individualized therapy daily on at least 5 of ever y 7 days Patient's prognosis for significant practical improvement within a reasonable period of time appears Good DISCHARGE PLAN: - Estimated Length of Stay (days) 14. - Consensus on plan Discharge plan has been discussed with primary caregiver. Patient/Family is in agreement with the tara n. Primary caregiver is in agreement with the plan. - Patient/Family Goals Return home with assistance. - Planned Living Setting Upon Discharge Home, to live with Family/Relatives. RECOMMENDED CARE LEVEL: IRF RECOMMENDATION DETAILS: Recommended Admission to Comprehensive Rehabilitation Program to Increase Functional [place] SCREENER'S COMPLETENESS CONFIRMATION: - Screening Confirmation The patient data collection on this preadmission screening form is finished PHYSICIANS REVIEW AND ADMISSION DETERMINATION Admit - Based on my review of the Pre-Admission Screening results, in my medical judgment and experie nce, I concur with the findings and recommend admission to [facility], as this patient requires an IRF level of care. SIGNATURE PANEL: Clinical Liaison - [electronically] signed by Thomas Medina on 10/17/2017 at 09:43 (CDT) Physician Reviewer - [electronically] signed by Dr. Dave Webber M.D. on 10/17/2017 at 09:59 (CDT )
[2017-10-17] MEDS ORDERED: D50W 25 GM/50 ML SYRINGE IV PRN (16:27)
[2017-10-17] MEDS ORDERED: GLUCAGON 1 MG/VIAL IM PRN (16:27)
[2017-10-17] MEDS: INSULIN -REGULAR HUMAN 50 UNIT/0.5 ML ML SQ SCH ×2 (16:30→20:23)
[2017-10-17] MEDS: HYDROCODONE/APAP 7.5/325 MG TAB PO PRN (17:10)
[2017-10-17] MEDS: GLIMEPIRIDE 2 MG TABLET PO SCH (17:55)
[2017-10-17] MEDS: ENOXAPARIN 40 MG/0.4 ML SQ SCH (17:55)
[2017-10-17] MEDS: LORAZEPAM 0.5 MG TABLET PO PRN (20:27)
[2017-10-17] MEDS: GABAPENTIN 300 MG CAP PO SCH (20:27)
[2017-10-17] MEDS: FERROUS SULFATE 325 MG TAB PO SCH (20:27)
[2017-10-17] MEDS ORDERED: LORAZEPAM 1 MG TABLET PO SCH (21:00)
[2017-10-17] MEDS ORDERED: ACETAMINOPHEN 500 MG TAB PO PRN (22:06)
--- NOTE | 2017-10-18 02:09 | FAST ---
SHIFT START DATE/TIME: 10/17/2017 19:00 (CDT) SHIFT END DATE/TIME: 10/18/2017 07:00 (CDT) NAME GEOVANNA BUSBY DATE OF : 1930 DATE OF ADMISSION: 10/17/2017 15:42 (CDT) PHONE: AGE: 87 [facility]# [id number] GENDER: Female ENCOUNTER PHYSICIAN: Dr. Dave Webbre M.D. ADMISSION DIAGNOSIS: - Orthopaedic Disorders 08 - Femur (Shaft) Fracture (08.2) Left Femoral Neck Fracture. EATING: Activity did not occur on this shift EATING - SCORE: 0-UNK GROOMING: Wash, rinse, and dry hands GROOMING - STEP 1: Does the patient require assistance when grooming? Yes. GROOMING - STEP 2: Does the patient require the assistance of a helper? Yes. GROOMING - STEP 3: How much assistance does the patient require from the helper? Incidental touching assistance from the helper while grooming GROOMING - SCORE: 4-MIN BATHING: Activity did not occur on this shift BATHING - SCORE: 0-UNK DRESSING - UPPER BODY: Activity did not occur on this shift ARTICLES SCORE Total number of steps: 0 DRESSING - UPPER BODY - SCORE: 0-UNK DRESSING - LOWER BODY: Activity did not occur on this shift ARTICLES SCORE Total number of steps: 0 DRESSING - LOWER BODY - SCORE: 0-UNK TOILETING: TOILETING - STEP 1: Does the patient require assistance with toileting? Yes. TOILETING - STEP 2: Does the patient require the assistance of a helper? Yes. TOILETING - STEP 3: How much assistance does the patient require from the helper? Hands-on assistance from the helper TOILETING - STEP 4: Of the 3 tasks: 1) Adjusting clothing prior to use, 2) Cleansing of perineal area, 3) Adjusting clot nolberto after use; How many tasks does the patient perform WITHOUT assistance of the helper? Three tasks with steadying assistance from the helper TOILETING - SCORE: 4-MIN BLADDER MANAGEMENT: BLADDER MANAGEMENT - STEP 1: Does the patient control the bladder completely and intentionally without equipment or devices or med ications, and is always continent? No. BLADDER MANAGEMENT - STEP 2: Does the patient require the assistance of a helper? Yes. BLADDER MANAGEMENT - STEP 3: How much assistance does the patient require from the helper? Patient requires contact assistance fro m the helper BLADDER MANAGEMENT - STEP 4: How much contact assistance does the patient require from the helper? Patient requires minimal assist ance to maintain an external device - by positioning, and the patient performs 75% or more of bladder management tasks, while the helper provides less than 25% of the assistance to position patient on / off bedpan BLADDER MANAGEMENT - SCORE: 4-MIN BOWEL MANAGEMENT: Activity did not occur on this shift BOWEL MANAGEMENT - SCORE: 7-IND TRANSFERS: BED, CHAIR, WHEELCHAIR: TRANSFERS: BED, CHAIR, WHEELCHAIR - STEP 1: Does the patient require assistance with bed, chair, or wheelchair transfers? Yes. TRANSFERS: BED, CHAIR, WHEELCHAIR - STEP 2: Does the patient require the assistance of a helper? Yes. TRANSFERS: BED, CHAIR, WHEELCHAIR - STEP 3: How much assistance does the patient require from the helper? Lifting of the legs TRANSFERS: BED, CHAIR, WHEELCHAIR - STEP 4: How many legs does the patient require the helper to lift? both legs TRANSFERS: BED, CHAIR, WHEELCHAIR - SCORE: 3-MOD TRANSFERS: TOILET: TRANSFERS: TOILET - STEP 1: Does the patient require assistance with toilet transfers? Yes. TRANSFERS: TOILET - STEP 2: Does the patient require the assistance of a helper? Yes. TRANSFERS: TOILET - STEP 3: How much assistance does the patient require from the helper? Patient performs half or more of the tr ansferring tasks TRANSFERS: TOILET - STEP 4: Does the patient need only incidental help such as contact guard or steadying during toilet transfer? Yes. TRANSFERS: TOILET - SCORE: 4-MIN TRANSFERS: SHOWER: Activity did not occur on this shift TRANSFERS: SHOWER - SCORE: 0-UNK TRANSFERS: TUB: Activity did not occur on this shift TRANSFERS: TUB - SCORE: 0-UNK LOCOMOTION: WALK: Activity did not occur on this shift LOCOMOTION: WALK - SCORE: 0-UNK LOCOMOTION: WHEELCHAIR: Activity did not occur on this shift LOCOMOTION: WHEELCHAIR - SCORE: 0-UNK COMPREHENSION: COMPREHENSION - STEP 1: Does the patient require help to understand complex and abstract ideas (such as current events, finan joseph, discharge planning, medical issues, relationships, etc)? No. COMPREHENSION - STEP 2: Does the patient need extra time, require an assistive device (such as glasses, hearing aids, or an a ugmentative communication system), OR does s/he have mild difficulty expressing complex and abstract ideas (including mild dysarthria or mild word-finding problems)? Yes. COMPREHENSION - SCORE: 6-EDIN EXPRESSION EXPRESSION - STEP 1: Does the patient require help expressing complex and abstract ideas (such as current events, finances , discharge planning, medical issues, relationships, etc)? No. EXPRESSION - STEP 2: Does the patient need extra time, require an assistive device (such as augmentive communication syste m or a communication board), OR does s/he have mild difficulty expressing complex and abstract ideas (including mild dysarthria or mild word-find problems)? Yes. EXPRESSION - SCORE: 6-EDIN SOCIAL INTERACTION: SOCIAL INTERACTION - STEP 1: Does the patient require a helper to interact with others in social and therapeutic situations? No. SOCIAL INTERACTION - STEP 2: Does the patient need extra time in social situations, OR does s/he interact with staff, other patien ts, and family members ONLY in structured environments, OR does s/he require medication for social in teraction? Yes, patient requires medication for social interaction SOCIAL INTERACTION - SCORE: 6-EDIN PROBLEM SOLVING: PROBLEM SOLVING - STEP 1: Does the patient need help to solve complex problems such as managing a checking account or confronti ng interpersonal problems? No. PROBLEM SOLVING - STEP 2: Does the patient require extra time to make decisions or solve problems, OR does s/he have slight dif ficulty reading, initiating, or self-correcting in unfamiliar situations? Yes, patient needs extra ti me. PROBLEM SOLVING - SCORE: 6-EDIN MEMORY: MEMORY - STEP 1: Does the patient need help to remember frequently encountered people, daily routines, and executing r equests? No. MEMORY - STEP 2: Does the patient have slight difficulty recognizing frequently encountered people, daily routines, or executing requests without the need for repetition or using self-initiated or environmental cues to remember? Yes. MEMORY - SCORE: 6-EDIN SIGNATURE PANEL: The following modified sections: Eating - Score, Grooming - Score, Bathing - Score, Dressing - Upper Body - Score, Dressing - Lower Body - Score, Toileting - Score, Bladder Management - Score, Bowel Man agement - Score, Transfers: Bed, Chair, Wheelchair - Score, Transfers: Toilet - Score, Transfers: Karin wer - Score, Transfers: Tub - Score, Locomotion: Walk - Score, Locomotion: Wheelchair - Score, Compre hension - Score, Expression - Score, Social Interaction - Score, Problem Solving - Score, Memory - Sc ore were [electronically] signed by Emilee Katz RN on TueOct 18 2017 01:09:03 T-0500 ([facility] Time)
[2017-10-18] MEDS: LEVOTHYROXINE SOD 0.1 MG TAB PO SCH (05:11)
[2017-10-18] MEDS: HYDROCODONE/APAP 7.5/325 MG TAB PO PRN ×3 (05:17→20:13)
[2017-10-18 06:32] LABS: Absolute Lymphocytes (CBC) 2.3 K/uL (0.7-4.9); Absolute Monocytes 0.7 K/uL (0.1-1.3); Absolute Neutrophil 3.6 K/uL (1.8-8.0); Basophils % 0.5 % (0-1.3); Eosinophils % 3.6 % (0-4.4); Hematocrit 31.3 % (36.0-45.0); Lymphocytes % 33.4 % (15.3-44.8); MCH 29.9 pg (27.0-35.0); MCV 90.4 fL (80-100); Monocytes % 9.9 % (3.3-12.3); RBC Red Blood Cell Count 3.47 M/uL (3.86-4.86)
[2017-10-18 07:02] LABS: Albumin 2.7 g/dL (3.2-5.5); Magnesium 1.8 mg/dL (1.8-2.5); Potassium 4.4 mEq/L (3.6-5.0); Prealbumin 13.3 mg/dl (18-38)
[2017-10-18] MEDS: INSULIN -REGULAR HUMAN 50 UNIT/0.5 ML ML SQ SCH ×3 (07:19→16:30)
[2017-10-18] MEDS: GABAPENTIN 300 MG CAP PO SCH ×2 (08:23→20:13)
[2017-10-18] MEDS: FERROUS SULFATE 325 MG TAB PO SCH ×2 (08:23→20:13)
[2017-10-18] MEDS: GLIMEPIRIDE 2 MG TABLET PO SCH ×2 (08:24→17:42)
[2017-10-18] MEDS: LISINOPRIL 20 MG TAB PO SCH (08:24)
[2017-10-18] MEDS: PROMOD 30 ML DOSE PO SCH ×2 (08:25→20:13)
[2017-10-18] MEDS: TRAMADOL HCL 50 MG TAB PO PRN (08:49)
--- NOTE | 2017-10-18 11:39 | FAST ---
SHIFT START DATE/TIME: 10/18/2017 07:00 (CDT) SHIFT END DATE/TIME: 10/18/2017 19:00 (CDT) NAME GEOVANNA BUSBY DATE OF : 1930 DATE OF ADMISSION: 10/17/2017 15:42 (CDT) PHONE: AGE: 87 [facility] [place]# [phone] GENDER: Female ENCOUNTER PHYSICIAN: Dr. Dave Webber M.D. ADMISSION DIAGNOSIS: - Orthopaedic Disorders 08 - Femur (Shaft) Fracture (08.2) Left Femoral Neck Fracture. EATING: EATING - STEP 1: Does the patient require assistance when eating? Yes. EATING - STEP 2: Does the patient require the assistance of a helper? Yes. EATING - STEP 3: Does the patient perform half or more of the eating tasks? Yes. EATING - STEP 4: Does the patient need only supervision, cuing, coaxing OR help to apply an orthosis OR help to cut fo od, open containers, pour liquids, or butter bread? Yes. EATING - SCORE: 5-SUP GROOMING: Comb/brush hair Oral care Wash, rinse, and dry face Wash, rinse, and dry hands GROOMING - STEP 1: Does the patient require assistance when grooming? Yes. GROOMING - STEP 2: Does the patient require the assistance of a helper? Yes. GROOMING - STEP 3: How much assistance does the patient require from the helper? Only prior equipment preparation/set up from the helper GROOMING - SCORE: 5-SUP BATHING: Activity did not occur on this shift BATHING - SCORE: 0-UNK DRESSING - UPPER BODY: Activity did not occur on this shift ARTICLES SCORE Total number of steps: 0 DRESSING - UPPER BODY - SCORE: 0-UNK DRESSING - LOWER BODY: Activity did not occur on this shift ARTICLES SCORE Total number of steps: 0 DRESSING - LOWER BODY - SCORE: 0-UNK TOILETING: TOILETING - STEP 1: Does the patient require assistance with toileting? Yes. TOILETING - STEP 2: Does the patient require the assistance of a helper? Yes. TOILETING - STEP 3: How much assistance does the patient require from the helper? Hands-on assistance from the helper TOILETING - STEP 4: Of the 3 tasks: 1) Adjusting clothing prior to use, 2) Cleansing of perineal area, 3) Adjusting clot nolberto after use; How many tasks does the patient perform WITHOUT assistance of the helper? Three tasks with steadying assistance from the helper TOILETING - SCORE: 4-MIN BLADDER MANAGEMENT: BLADDER MANAGEMENT - STEP 1: Does the patient control the bladder completely and intentionally without equipment or devices or med ications, and is always continent? No. BLADDER MANAGEMENT - STEP 2: Does the patient require the assistance of a helper? No, patient requires and independently uses an a ssistive device, such as a urinal, bedpan, bedside commode, catheter, absorbent pad, or collecting de vice BLADDER MANAGEMENT - SCORE: 6-EDIN BOWEL MANAGEMENT: Activity did not occur on this shift BOWEL MANAGEMENT - SCORE: 7-IND TRANSFERS: BED, CHAIR, WHEELCHAIR: TRANSFERS: BED, CHAIR, WHEELCHAIR - STEP 1: Does the patient require assistance with bed, chair, or wheelchair transfers? Yes. TRANSFERS: BED, CHAIR, WHEELCHAIR - STEP 2: Does the patient require the assistance of a helper? Yes. TRANSFERS: BED, CHAIR, WHEELCHAIR - STEP 3: How much assistance does the patient require from the helper? Steadying/guiding assistance TRANSFERS: BED, CHAIR, WHEELCHAIR - SCORE: 4-MIN TRANSFERS: TOILET: TRANSFERS: TOILET - STEP 1: Does the patient require assistance with toilet transfers? Yes. TRANSFERS: TOILET - STEP 2: Does the patient require the assistance of a helper? Yes. TRANSFERS: TOILET - STEP 3: How much assistance does the patient require from the helper? Only supervision, cuing, coaxing, OR he lp to set out transfer equipment or to lock brakes and/or lift foot rests TRANSFERS: TOILET - SCORE: 5-SUP TRANSFERS: SHOWER: Activity did not occur on this shift TRANSFERS: SHOWER - SCORE: 0-UNK TRANSFERS: TUB: Activity did not occur on this shift TRANSFERS: TUB - SCORE: 0-UNK LOCOMOTION: WALK: Activity did not occur on this shift LOCOMOTION: WALK - SCORE: 0-UNK LOCOMOTION: WHEELCHAIR: Activity did not occur on this shift LOCOMOTION: WHEELCHAIR - SCORE: 0-UNK COMPREHENSION: COMPREHENSION - SCORE: 0-UNK EXPRESSION EXPRESSION - SCORE: 0-UNK SOCIAL INTERACTION: SOCIAL INTERACTION - SCORE: 0-UNK PROBLEM SOLVING: PROBLEM SOLVING - SCORE: 0-UNK MEMORY: MEMORY - SCORE: 0-UNK SIGNATURE PANEL: The following modified sections: Eating - Score, Grooming - Score, Bathing - Score, Dressing - Upper Body - Score, Dressing - Lower Body - Score, Toileting - Score, Bladder Management - Score, Bowel Man agement - Score, Transfers: Bed, Chair, Wheelchair - Score, Transfers: Shower - Score, Transfers: Tub - Score, Locomotion: Walk - Score, Locomotion: Wheelchair - Score, Comprehension - Score, Expression - Score, Social Interaction - Score, Problem Solving - Score, Memory - Score, Transfers: Toilet - Sc ore were [electronically] signed by Kash Carrillo on TueOct 18 2017 10:39:00 GMT-0500 (Central Daylight Time)
--- NOTE | 2017-10-18 14:53 | FAST ---
ENCOUNTER DATE AND TIME: 10/18/2017 08:00 (CDT) NAME GEOVANNA BUSBY DATE OF : 1930 DATE OF ADMISSION: 10/17/2017 15:42 (CDT) PHONE: AGE: 87 N# [id number] GENDER: Female ENCOUNTER PHYSICIAN: Dr. Dave Webber M.D. ADMISSION DIAGNOSIS: - Orthopaedic Disorders 08 - Femur (Shaft) Fracture (08.2) Left Femoral Neck Fracture. EATING: Activity did not occur on this shift EATING - SCORE: 0-UNK GROOMING: Activity did not occur on this shift GROOMING - SCORE: 0-UNK BATHING: Activity did not occur on this shift BATHING - SCORE: 0-UNK DRESSING - UPPER BODY: Activity did not occur on this shift Patient is not dressing in public clothing ARTICLES SCORE Total number of steps: 0 DRESSING - UPPER BODY - SCORE: 0-UNK DRESSING - LOWER BODY: Activity did not occur on this shift Patient is not dressing in public clothing ARTICLES SCORE Total number of steps: 0 DRESSING - LOWER BODY - SCORE: 0-UNK TOILETING: Activity did not occur on this shift TOILETING - SCORE: 0-UNK BLADDER MANAGEMENT: Activity did not occur on this shift BLADDER MANAGEMENT - SCORE: 7-IND BOWEL MANAGEMENT: Activity did not occur on this shift BOWEL MANAGEMENT - SCORE: 7-IND TRANSFERS: BED, CHAIR, WHEELCHAIR: TRANSFERS: BED, CHAIR, WHEELCHAIR - STEP 1: Does the patient require assistance with bed, chair, or wheelchair transfers? Yes. TRANSFERS: BED, CHAIR, WHEELCHAIR - STEP 2: Does the patient require the assistance of a helper? Yes. TRANSFERS: BED, CHAIR, WHEELCHAIR - STEP 3: How much assistance does the patient require from the helper? Steadying/guiding assistance TRANSFERS: BED, CHAIR, WHEELCHAIR - SCORE: 4-MIN TRANSFERS: TOILET: Activity did not occur on this shift TRANSFERS: TOILET - SCORE: 0-UNK TRANSFERS: SHOWER: Activity did not occur on this shift TRANSFERS: SHOWER - SCORE: 0-UNK TRANSFERS: TUB: Activity did not occur on this shift TRANSFERS: TUB - SCORE: 0-UNK LOCOMOTION: WALK: LOCOMOTION: WALK - STEP 1: Does the patient need help to walk 150 feet? Yes. LOCOMOTION: WALK - STEP 2: How much assistance does the patient require to walk a minimum of 150 feet? Only incidental help such as contact guarding or steadying LOCOMOTION: WALK - SCORE: 4-MIN LOCOMOTION: WHEELCHAIR: Activity did not occur on this shift LOCOMOTION: WHEELCHAIR - SCORE: 0-UNK LOCOMOTION: STAIRS: LOCOMOTION: STAIRS - STEP 1: Does the patient need help to go up and down 12 to 14 stairs? Yes. LOCOMOTION: STAIRS - STEP 2: How much assistance does the patient need from the helper to go a minimum of 12 to 14 stairs? The pat ient goes less than 12 to 14 stairs - but more than 4 to 6 stairs LOCOMOTION: STAIRS - SCORE: 2-MAX COMPREHENSION: COMPREHENSION - SCORE: 0-UNK EXPRESSION EXPRESSION - SCORE: 0-UNK SOCIAL INTERACTION: SOCIAL INTERACTION - SCORE: 0-UNK PROBLEM SOLVING: PROBLEM SOLVING - SCORE: 0-UNK MEMORY: MEMORY - SCORE: 0-UNK SIGNATURE PANEL: The following modified sections: Transfers: Bed, Chair, Wheelchair - Score, Transfers: Toilet - Score , Locomotion: Walk - Score, Locomotion: Wheelchair - Score, Locomotion: Stairs - Score were [cesilia fish] signed by Yunier Lam PT on TueOct 18 2017 13:53:18 T-[id number] (Central Daylight Time)
[2017-10-18] MEDS: ENOXAPARIN 40 MG/0.4 ML SQ SCH (17:42)
--- NOTE | 2017-10-18 20:09 | R.HP ---
FACILITY: [facility] ENCOUNTER DATE AND TIME: 10/18/2017 19:07 (CDT) MR#: [id number] NAME GEOVANNA BUSBY ADDRESS: [address] [place] [address] CITY: [place]IP [id number] PHONE: DATE OF : 1930 AGE: 87 SSN# [id number] GENDER: Female DEXTERITY Right-handed MARITAL STATUS RACE White PRE-HOSPITAL LIVING SETTING 01 - Home (private home/apt. board/care, assisted living, chcf, transitional living) PRE-HOSPITAL LIVING WITH Family/Relatives ENCOUNTER PHYSICIAN: Dr. Dave Webber M.D. 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 is a 87 yo Right-handed white female. Her impairment category is Orthopaedic Disorders 08 - Femur (Shaft) Fracture (08.2). Pre-morbidly, Pt. was independent/mod-I in Transfers Control, Communication, Social Cognition, Self-C are, Locomotion, and Sphincter Control; and she had good Sphincter Control. Currently, she has deficits of Safety Awareness, Transfers Control, Balance, Self-Care, Locomotion, a nd Endurance. Pt. is now referred to [facility] for acute in-patient rehabilitation in order to maximize patient's functional independence in activities of daily living, strength, ROM, and mobi lity. Patient has realistic goal of being discharged at assistance level 6-Leatha to reside at Home with Fam boyd/Relatives. 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 SOCIAL HISTORY: - Home Living Family/Relatives REVIEW OF SYSTEMS: - Gen No Chills No Fatigue No Fever - Eyes No Double Vision No itchiness - ENMT No Difficulty Swallowing - CVS No Chest Discomfort No Chest Pain No Fatigue No Weight Gain - Resp No Cough No Shortness of Breath - GI Continent No Abdominal Pain No Constipation No Diarrhea - Continent No Kidney Pain No Painful Urination No Urinary Urgency - MSK No Joint Pain No Muscle Cramps No Stiffness - Skin No Itching No Rash No Suspicious Lesions - Neuro No Coordination Difficulty No Difficulty with Concentration No Memory Loss No Seizures No Weakness - Psych No Anxiety No Depression No HIV Exposure No Persistent Infections No Seasonal Allergies - Endo No Cold/Heat Intolerance No Excessive Hunger No Excessive Thirst No Excessive Urination PHYSICAL EXAM - Gen Alert and awake Lying in bed No apparent distress Oriented to: person, time, and place - Vital Signs Temperature: 97 F SBP/DBP: 128/59 Pulse: 78 Resp: 16 - Skin No skin breakdown. Normacephalic - Eyes No abnormalities - ENMT No abnormalities - Neck No abnormalities - CVS RRR - Chest Clear - Abd Soft - GI Non distended Deferred - No abnormalities - Ext No significant edema - MSK Unremarkable - Neuro No focal deficits - Psych No abnormalities VITAL SIGNS Temperature: 97 F SBP/DBP: 128/59 Pulse: 78 Resp: 16 Vital signs stable, afebrile NURSING: - Shower allowing shower - Lab Results blood Sugar Check ACHS - Skin care per protocol PRECAUTIONS: - Weight Bearing Precaution WBAT left LE - Fall Precaution Bed and chair alarm ACTIVITIES OOB only with supervision FUNCTIONAL STATUS: - Self-Care A. Eating Ind sup B. Grooming Ind sup C. Bathing Ind sup D. Dressing - Upper Ind sup E. Dressing - Lower Ind sup F. Toileting Ind Susie - Sphincter Control G: Bladder control Ind Ind H: Bowel control Ind Ind - Transfers Control I. Bed/Chair/Wheelchair Ind Susie J. Toilet Ind Susie K. Tub/Shower Ind ADNO - Locomotion L. Walk/Wheelchair (C) Ind Susie L. Walk/Wheelchair (W) Ind Susie M. Stairs Ind ADNO - Communication N. Comprehension (B) Ind Leatha O. Expression (B) Ind Leatha - Social Cognition P. Social Interaction Ind Leatha Q. Problem Solving Ind Leatha R. Memory Ind Leatha - Endurance Fair - Balance Fair - Safety Awareness Fair CURRENT [facility]. DEFICITS: Safety Awareness, Transfers Control, Balance, Self-Care, Locomotion, and Endurance ASSESSMENT: Pt. is a 87 yo Right-handed white female.Her impairment category is Orthopaedic Disorders 08 - Femur (Shaft) Fracture (08.2).Pre-morbidly, Pt. was independent/mod-I in Transfers Control, Communication, Social Cognition, Self-Care, Locomotion, and Sphincter Control; and she had good Sphincter Control.C urrently, she has deficits of Safety Awareness, Transfers Control, Balance, Self-Care, Locomotion, an d Endurance.Pt. is now referred to [facility] for acute in-patient rehabilitat ion in order to maximize patient's functional independence in activities of daily living, strength, R OM, and mobility.- Rehab Goal Patient has realistic goal of being discharged at assistance level 6-Leatha to reside at Home with Fam boyd/Relatives. REHAB PLAN: - Physical Therapy Decreased range of motion - to improve, our physical therapists will perform initial evaluation of pt 's status upon admission and devise an individualized program for increasing patient's Range of Motio n. Gait dysfunction - to improve, our physical therapists will perform initial evaluation of pt's status upon admission and devise an individualized program for Gait Training, and Wheel Chair mobility Inability to transfer - to improve, our physical therapists will perform initial evaluation of pt's s tatus upon admission and devise an individualized program for Bed mobility Need for home safety evaluation - to improve, our physical therapists will perform initial evaluation of pt's status upon admission and devise an individualized program for Home Evaluation Need in caregiver upon discharge - to improve, our physical therapists will perform initial evaluatio n of pt's status upon admission and devise an individualized program for Caregiver Training New precaution - to improve, our physical therapists will perform initial evaluation of pt's status u meredith admission and devise an individualized program for Patient precaution education Edema - to improve, our physical therapists will perform initial evaluation of pt's status upon admi ssion and devise an individualized program for Elevation Training, and Lymphedema Therapy Poor balance - to improve, our physical therapists will perform initial evaluation of pt's status upo n admission and devise an individualized program for Balance Training Poor endurance - to improve, our physical therapists will perform initial evaluation of pt's status u meredith admission and devise an individualized program for Endurance Training Weakness - to improve, our physical therapists will perform initial evaluation of pt's status upon ad mission and devise an individualized program for Aquatic Therapy, Neuromuscular Reeducation, and Stre ngthening Achieving independence - to improve, our physical therapists will perform initial evaluation of pt's status upon admission and devise an individualized program for Community Reintegration Activities - Occupational Therapy ADL deficits - to improve, our occupation therapists will perform initial evaluation of pt's status u meredith admission and devise an individualized program for Bathing, Bed mobility, Community Reintegration , Cooking, Dressing, Eating, Fine Motor Skills, Grooming, Homemaking, Kitchen Mobility, Laundry, Loree ent Education, Safety Awareness, Splinting - Positioning, Transfers(Toilet, Tub, Shower), and Wheel C hair Management Need for live in caregiver - to improve, our occupation therapists will perform initial evaluation of pt's s tatus upon admission and devise an individualized program for Caregiver Training Weakness - to improve, our occupation therapists will perform initial evaluation of pt's status upon admission and devise an individualized program for Aquatic Therapy, Balance, Endurance, UE ROM, and U E strengthening MEDICAL PLAN: - Diet Type Start Regular - Diet - Liquid Texture Start Regular - Tube Feed Start N/A - Lab Results blood Sugar Check ACHS - Weight Bearing Precaution WBAT left LE - Fall Precaution Bed and chair alarm - Skin care per protocol - Diet - Solid Texture Regular - Shower shower DISCHARGE PLAN: - Estimated Length of Stay (days) 14. - Consensus on plan Discharge plan has been discussed with primary caregiver. Patient/Family is in agreement with the tara n. Primary caregiver is in agreement with the plan. - Patient/Family Goals Return home with assistance. - Planned Living Setting Upon Discharge Home, to live with Family/Relatives. SIGNATURE PANEL: (CDT)
--- NOTE | 2017-10-18 20:11 | PAPE ---
PATIENT: [facility] MR# [id number] REFERRING DOCTOR MARIAN CHRISTIAN EVALUATION DATE AND TIME 10/18/2017 19:09 (CDT) NAME GEOVANNA BUSBY DATE OF 1930 AGE 87 PHONE N# [id number] GENDER female EVALUATING PHYSICIAN Dr. Dave Webber M.D. 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 PATIENT NEEDS CLOSE MEDICAL SUPERVISION BY A REHABILITATION PHYSICIAN FOR: Bowel and Bladder Management Coordination of Treatment Team Medical and Co-Morbidity Management Wound Care DVT Management Pain Management Diabetes Management PATIENT REQUIRES 24X7 REHAB NURSING FOR MEDICAL AND FUNCTIONAL MGT. OF THE FOLLOWING DEFICITS: ADL's Ambulation Bowel and Bladder Management Cognition Communication Disease Management Medication Management Patient/Family Education Providing Safe Environment Skin Integrity Transfers PATIENT REQUIRES INTENSIVE, COORDINATED INTERDISCIPLINARY APPROACH TO REHAB: Arranging Home Equipment/Services Discharge Planning Family Intervention/Training [employer] Consultant/Case Management LIST OF IDENTIFIED AND POTENTIAL PROBLEMS: Alteration in leisure activities Bladder, Incontinence Bowel, Incontinence Diabetes, Hyperglycemia/hypoglycemia Issues Infection, Actual or Potential Mobility Impaired Pain, Alteration in Comfort Self Care Deficit Skin Integrity, Actual or Potential Urinary Tract Infection (UTI), Actual or Potential PATIENT COULD BE AT RISK FOR COMPLICATIONS FROM ADVERSE MEDICAL CONDITIONS DUE TO HIS/HER COMORBIDITI ES AND THE RIGORS OF THE INTENSIVE REHABILLITATION PROGRAM. METHODS OR INTERVENTIONS TO AVOID COMPLIC ATIONS INCLUDE: - Deep Vein Thrombosis (DVT) Prophylaxis therapy for prevention . Sequential Compression Device (SCD). LIBERTAD Carrillo. - Bleeding Assess lab values and manage abnormalities. Nursing to teach precautions for anti-coagulation therapy . Wound to be assessed every shift. - Infection Clinical staff to assess and manage the signs and symptoms of infection including fever, redness, war mth, etc. - Urinary Tract Infection - Falls Patient will be evaluated for Fall Precautions and will be placed on Fall Precautions as indicated pe r protocol. - Skin Breakdown Nursing will assess skin daily using assessment tool and will place on Skin Breakdown Precautions as indicated per protocol. - Pain Clinical staff may employ non-medication methods such as massage, distraction, decrease stimulus, etc . as needed. Clinical staff will assess patient's pain level every shift per protocol to assess and e nsure pain management effectiveness. Medications will be given and the pain level re-assessed. PRELIMINARY PLAN OF CARE: - Physical Therapy Patient needs Physical Therapy for a daily minimum of 1.5 hours at least 5 out of 7 days, to improve: Mobility, Strengthening, Transfers, Stretching, ROM, Endurance, Ability to manage stairs, Gait, and Balance. - Rehabilitation Nursing Patient requires 24x7 Rehabilitation Nursing for: Pain Issues, Identifying and preventing risk factor s, Monitoring and reporting current medical conditions, Assisting with ambulation and transfer, Chika ting with all ADL-s, Teaching patients about disease process and medications, Family teaching, Provid ing safe environment, Bowel and Bladder Issues, Skin Integrity, and Medication Management. Patient needs [employer] Consultant and/or Case Management for: Discharge Planning, Arranging Home Equipmen t or Services, and Family Interventions. - Dietary and Nutrition Services Patient needs Dietary and Nutrition Services for: Adequate Nutrition, Nutritional Supplements, and Nu tritional Education. - Occupational Therapy Patient needs Occupational Therapy for a daily minimum of 1.5 hours at least 5 out of 7 days, to impr ove Activities of Daily Living, including: Eating, Grooming, Bathing, Dressing, Toileting, Toilet Tra nsfers, Community Reintegration, Higher functional activities, Adaptive Equipment, Splinting, Househo ld Tasks, and Other activities as determined. POTENTIAL FUNCTIONAL GOALS FOR PATIENT TO ACHIEVE BY DISCHARGE: - Safety Precaution Patient will remain free from falls or injury at time of discharge. - Bed Mobility Patient will perform bed mobility at 4-Susie level of assistance. - Transfers Patient will complete transfers from bed to chair at 4-Susie level of assistance. - Mobility Patient will ambulate 150 ft with 4-Susie level of assistance with RW. PATIENT REHAB POTENTIAL Expected level of measurable improvement will be of a practical value to patient's functional capacit y or adaptations to impairments Has a viable Discharge Plan Medically appropriate; condition is sufficiently stable to participate in intensive rehab program Patient is able and expected to receive 3 hours of individualized therapy daily on at least 5 of ever y 7 days Patient's prognosis for significant practical improvement within a reasonable period of time appears Good DISCHARGE PLAN: - Estimated Length of Stay (days) 14. - Consensus on plan Discharge plan has been discussed with primary caregiver. Patient/Family is in agreement with the tara n. Primary caregiver is in agreement with the plan. - Patient/Family Goals Return home with assistance. - Planned Living Setting Upon Discharge Home, to live with Family/Relatives. CONCLUSION ON REHABILITATION NECESSITY: I have evaluated patient's pre-admission functional status and, comparing it to the patient's post-ad mission functional status now, I conclude that the pre-admission assessment was accurate. Patient's c ondition on admission supports the medical necessity of admission to IRF. It is safe to proceed with patient's therapy program. SIGNATURE PANEL: (CDT)
[2017-10-18] MEDS: LORAZEPAM 0.5 MG TABLET PO PRN (20:13)
--- NOTE | 2017-10-19 03:19 | FAST ---
SHIFT START DATE/TIME: 10/18/2017 19:00 (CDT) SHIFT END DATE/TIME: 10/19/2017 07:00 (CDT) NAME GEOVANNA BUSBY DATE OF : 1930 DATE OF ADMISSION: 10/17/2017 15:42 (CDT) PHONE: AGE: 87 BANNER# [id number] GENDER: Female ENCOUNTER PHYSICIAN: Dr. Dave Webber M.D. ADMISSION DIAGNOSIS: - Orthopaedic Disorders 08 - Femur (Shaft) Fracture (08.2) Left Femoral Neck Fracture. EATING: Activity did not occur on this shift EATING - SCORE: 0-UNK GROOMING: Wash, rinse, and dry hands GROOMING - STEP 1: Does the patient require assistance when grooming? Yes. GROOMING - STEP 2: Does the patient require the assistance of a helper? Yes. GROOMING - STEP 3: How much assistance does the patient require from the helper? Steadying assistance from the helper GROOMING - SCORE: 4-MIN BATHING: Activity did not occur on this shift BATHING - SCORE: 0-UNK DRESSING - UPPER BODY: Patient is not dressing in public clothing ARTICLES SCORE Total number of steps: 0 DRESSING - UPPER BODY - SCORE: 0-UNK DRESSING - LOWER BODY: Patient is not dressing in public clothing ARTICLES SCORE Total number of steps: 0 DRESSING - LOWER BODY - SCORE: 0-UNK TOILETING: TOILETING - STEP 1: Does the patient require assistance with toileting? Yes. TOILETING - STEP 2: Does the patient require the assistance of a helper? Yes. TOILETING - STEP 3: How much assistance does the patient require from the helper? Hands-on assistance from the helper TOILETING - STEP 4: Of the 3 tasks: 1) Adjusting clothing prior to use, 2) Cleansing of perineal area, 3) Adjusting clot nolberto after use; How many tasks does the patient perform WITHOUT assistance of the helper? Three tasks with steadying assistance from the helper TOILETING - SCORE: 4-MIN BLADDER MANAGEMENT: BLADDER MANAGEMENT - STEP 1: Does the patient control the bladder completely and intentionally without equipment or devices or med ications, and is always continent? No. BLADDER MANAGEMENT - STEP 2: Does the patient require the assistance of a helper? Yes. BLADDER MANAGEMENT - STEP 3: How much assistance does the patient require from the helper? Patient requires contact assistance fro m the helper BLADDER MANAGEMENT - STEP 4: How much contact assistance does the patient require from the helper? Patient requires minimal assist ance to maintain an external device - by positioning, and the patient performs 75% or more of bladder management tasks, while the helper provides less than 25% of the assistance to position patient on / off bedpan BLADDER MANAGEMENT - SCORE: 4-MIN BOWEL MANAGEMENT: Activity did not occur on this shift BOWEL MANAGEMENT - SCORE: 7-IND TRANSFERS: BED, CHAIR, WHEELCHAIR: TRANSFERS: BED, CHAIR, WHEELCHAIR - STEP 1: Does the patient require assistance with bed, chair, or wheelchair transfers? Yes. TRANSFERS: BED, CHAIR, WHEELCHAIR - STEP 2: Does the patient require the assistance of a helper? Yes. TRANSFERS: BED, CHAIR, WHEELCHAIR - STEP 3: How much assistance does the patient require from the helper? Lifting of the legs TRANSFERS: BED, CHAIR, WHEELCHAIR - STEP 4: How many legs does the patient require the helper to lift? both legs TRANSFERS: BED, CHAIR, WHEELCHAIR - SCORE: 3-MOD TRANSFERS: TOILET: TRANSFERS: TOILET - STEP 1: Does the patient require assistance with toilet transfers? Yes. TRANSFERS: TOILET - STEP 2: Does the patient require the assistance of a helper? Yes. TRANSFERS: TOILET - STEP 3: How much assistance does the patient require from the helper? Patient performs half or more of the tr ansferring tasks TRANSFERS: TOILET - STEP 4: Does the patient need only incidental help such as contact guard or steadying during toilet transfer? Yes. TRANSFERS: TOILET - SCORE: 4-MIN TRANSFERS: SHOWER: Activity did not occur on this shift TRANSFERS: SHOWER - SCORE: 0-UNK TRANSFERS: TUB: Activity did not occur on this shift TRANSFERS: TUB - SCORE: 0-UNK LOCOMOTION: WALK: Activity did not occur on this shift LOCOMOTION: WALK - SCORE: 0-UNK LOCOMOTION: WHEELCHAIR: Activity did not occur on this shift LOCOMOTION: WHEELCHAIR - SCORE: 0-UNK COMPREHENSION: COMPREHENSION - STEP 1: Does the patient require help to understand complex and abstract ideas (such as current events, finan joseph, discharge planning, medical issues, relationships, etc)? No. COMPREHENSION - STEP 2: Does the patient need extra time, require an assistive device (such as glasses, hearing aids, or an a ugmentative communication system), OR does s/he have mild difficulty expressing complex and abstract ideas (including mild dysarthria or mild word-finding problems)? Yes. COMPREHENSION - SCORE: 6-EDIN EXPRESSION EXPRESSION - STEP 1: Does the patient require help expressing complex and abstract ideas (such as current events, finances , discharge planning, medical issues, relationships, etc)? No. EXPRESSION - STEP 2: Does the patient need extra time, require an assistive device (such as augmentive communication syste m or a communication board), OR does s/he have mild difficulty expressing complex and abstract ideas (including mild dysarthria or mild word-find problems)? Yes. EXPRESSION - SCORE: 6-EDIN SOCIAL INTERACTION: SOCIAL INTERACTION - STEP 1: Does the patient require a helper to interact with others in social and therapeutic situations? No. SOCIAL INTERACTION - STEP 2: Does the patient need extra time in social situations, OR does s/he interact with staff, other patien ts, and family members ONLY in structured environments, OR does s/he require medication for social in teraction? Yes, patient requires medication for social interaction SOCIAL INTERACTION - SCORE: 6-EDIN PROBLEM SOLVING: PROBLEM SOLVING - STEP 1: Does the patient need help to solve complex problems such as managing a checking account or confronti ng interpersonal problems? No. PROBLEM SOLVING - STEP 2: Does the patient require extra time to make decisions or solve problems, OR does s/he have slight dif ficulty reading, initiating, or self-correcting in unfamiliar situations? Yes, patient needs extra ti me. PROBLEM SOLVING - SCORE: 6-EDIN MEMORY: MEMORY - STEP 1: Does the patient need help to remember frequently encountered people, daily routines, and executing r equests? No. MEMORY - STEP 2: Does the patient have slight difficulty recognizing frequently encountered people, daily routines, or executing requests without the need for repetition or using self-initiated or environmental cues to remember? Yes. MEMORY - SCORE: 6-EDIN SIGNATURE PANEL: The following modified sections: Eating - Score, Grooming - Score, Bathing - Score, Dressing - Upper Body - Score, Dressing - Lower Body - Score, Toileting - Score, Bladder Management - Score, Bowel Man agement - Score, Transfers: Bed, Chair, Wheelchair - Score, Transfers: Toilet - Score, Transfers: Karin wer - Score, Transfers: Tub - Score, Locomotion: Walk - Score, Locomotion: Wheelchair - Score, Compre hension - Score, Expression - Score, Social Interaction - Score, Problem Solving - Score, Memory - Sc ore were [electronically] signed by Emilee Katz RN on TueOct 19 2017 02:19:23 T-0500 ([facility])
[2017-10-19 04:51] LABS: Urine Appearance CLEAR; Urine Bilirubin NEGATIVE (NEG); Urine Blood NEGATIVE (NEG); Urine Color YELLOW; Urine Glucose NEGATIVE (NEG); Urine Protein NEGATIVE (NEG); Urine Urobilinogen 0.2 mg/dL (0.2-1.0)
[2017-10-19] MEDS: LEVOTHYROXINE SOD 0.1 MG TAB PO SCH (05:19)
[2017-10-19 05:27] LABS: Urine Bacteria <20 /HPF (<20); Urine Culture Reflex Order NOT NEEDED; Urine RBC NONE SEEN /HPF (NONE SEEN)
[2017-10-19] MEDS: FERROUS SULFATE 325 MG TAB PO SCH ×2 (07:17→20:49)
[2017-10-19] MEDS: GABAPENTIN 300 MG CAP PO SCH ×3 (07:17→20:49)
[2017-10-19] MEDS: GLIMEPIRIDE 2 MG TABLET PO SCH ×2 (07:17→17:07)
[2017-10-19] MEDS: HYDROCODONE/APAP 7.5/325 MG TAB PO PRN ×3 (07:17→20:48)
[2017-10-19] MEDS: LISINOPRIL 20 MG TAB PO SCH (07:18)
[2017-10-19] MEDS: PROMOD 30 ML DOSE PO SCH ×2 (07:22→20:49)
--- NOTE | 2017-10-19 15:13 | FAST ---
ENCOUNTER DATE AND TIME: 10/19/2017 08:00 (CDT) NAME GEOVANNA BUSBY DATE OF : 1930 DATE OF ADMISSION: 10/17/2017 15:42 (CDT) PHONE: AGE: 87 N# [id number] GENDER: Female ENCOUNTER PHYSICIAN: Dr. Dave Webber M.D. ADMISSION DIAGNOSIS: - Orthopaedic Disorders 08 - Femur (Shaft) Fracture (08.2) Left Femoral Neck Fracture. EATING: Activity did not occur on this shift EATING - SCORE: 0-UNK GROOMING: Activity did not occur on this shift GROOMING - SCORE: 0-UNK BATHING: Activity did not occur on this shift BATHING - SCORE: 0-UNK DRESSING - UPPER BODY: Activity did not occur on this shift Patient is not dressing in public clothing ARTICLES SCORE Total number of steps: 0 DRESSING - UPPER BODY - SCORE: 0-UNK DRESSING - LOWER BODY: Activity did not occur on this shift Patient is not dressing in public clothing ARTICLES SCORE Total number of steps: 0 DRESSING - LOWER BODY - SCORE: 0-UNK TOILETING: Activity did not occur on this shift TOILETING - SCORE: 0-UNK BLADDER MANAGEMENT: Activity did not occur on this shift BLADDER MANAGEMENT - SCORE: 7-IND BOWEL MANAGEMENT: Activity did not occur on this shift BOWEL MANAGEMENT - SCORE: 7-IND TRANSFERS: BED, CHAIR, WHEELCHAIR: TRANSFERS: BED, CHAIR, WHEELCHAIR - STEP 1: Does the patient require assistance with bed, chair, or wheelchair transfers? Yes. TRANSFERS: BED, CHAIR, WHEELCHAIR - STEP 2: Does the patient require the assistance of a helper? Yes. TRANSFERS: BED, CHAIR, WHEELCHAIR - STEP 3: How much assistance does the patient require from the helper? Only supervision TRANSFERS: BED, CHAIR, WHEELCHAIR - SCORE: 5-SUP TRANSFERS: TOILET: Activity did not occur on this shift TRANSFERS: TOILET - SCORE: 0-UNK TRANSFERS: SHOWER: Activity did not occur on this shift TRANSFERS: SHOWER - SCORE: 0-UNK TRANSFERS: TUB: Activity did not occur on this shift TRANSFERS: TUB - SCORE: 0-UNK LOCOMOTION: WALK: LOCOMOTION: WALK - STEP 1: Does the patient need help to walk 150 feet? Yes. LOCOMOTION: WALK - STEP 2: How much assistance does the patient require to walk a minimum of 150 feet? Only supervision, cuing, or coaxing LOCOMOTION: WALK - SCORE: 5-SUP LOCOMOTION: WHEELCHAIR: LOCOMOTION: WHEELCHAIR - STEP 1: Does the patient need help to go 150 feet in a wheelchair? Yes. LOCOMOTION: WHEELCHAIR - STEP 2: How much assistance does the patient need from the helper? Only supervision, cuing, or coaxing LOCOMOTION: WHEELCHAIR - SCORE: 5-SUP LOCOMOTION: STAIRS: LOCOMOTION: STAIRS - STEP 1: Does the patient need help to go up and down 12 to 14 stairs? Yes. LOCOMOTION: STAIRS - STEP 2: How much assistance does the patient need from the helper to go a minimum of 12 to 14 stairs? Only in cidental help such as contact guarding or steadying LOCOMOTION: STAIRS - SCORE: 4-MIN COMPREHENSION: COMPREHENSION - SCORE: 0-UNK EXPRESSION EXPRESSION - SCORE: 0-UNK SOCIAL INTERACTION: SOCIAL INTERACTION - SCORE: 0-UNK PROBLEM SOLVING: PROBLEM SOLVING - SCORE: 0-UNK MEMORY: MEMORY - SCORE: 0-UNK SIGNATURE PANEL: The following modified sections: Transfers: Bed, Chair, Wheelchair - Score, Transfers: Toilet - Score , Locomotion: Walk - Score, Locomotion: Wheelchair - Score, Locomotion: Stairs - Score were [cesilia fish] signed by Live Johnson PTA on TueOct 19 2017 14:13:10 GMT-0500 (Central Daylight Time)
--- NOTE | 2017-10-19 16:44 | FAST ---
ENCOUNTER DATE AND TIME: 10/19/2017 08:00 (CDT) NAME GEOVANNA BUSBY DATE OF : 1930 DATE OF ADMISSION: 10/17/2017 15:42 (CDT) PHONE: AGE: 87 N# [id number] GENDER: Female ENCOUNTER PHYSICIAN: Dr. Dave Webber M.D. ADMISSION DIAGNOSIS: - Orthopaedic Disorders 08 - Femur (Shaft) Fracture (08.2) Left Femoral Neck Fracture. EATING: EATING - STEP 1: Does the patient require assistance when eating? No. EATING - SCORE: 7-IND GROOMING: Comb/brush hair Oral care Wash, rinse, and dry face Wash, rinse, and dry hands GROOMING - STEP 1: Does the patient require assistance when grooming? No. GROOMING - SCORE: 7-IND BATHING: Abdomen Buttocks Chest Left arm Left lower leg and foot Left upper leg Perineal area Right arm Right lower leg and foot Right upper leg BATHING - STEP 1: Does the patient require assistance when bathing? Yes. BATHING - STEP 2: Does the patient require the assistance of a helper? Yes. BATHING - STEP 3: How much assistance does the patient require from the helper? More than just incidental help BATHING - STEP 4: What percent of the body parts did the patient bathe WITHOUT the helper? Half or more of the body par ts BATHING - SCORE: 3-MOD DRESSING - UPPER BODY: Bra (three steps) T-shirt/pullover shirt (four steps) ARTICLES SCORE Total number of steps: 7 DRESSING - UPPER BODY - STEP 1: Does the patient require help when dressing above the waist? Yes. DRESSING - UPPER BODY - STEP 2: Does the patient require the assistance of a helper? Yes. DRESSING - UPPER BODY - STEP 3: Does the helper touch the patient while dressing? No. DRESSING - UPPER BODY - SCORE: 5-SUP DRESSING - LOWER BODY: Elastic waist pants (three steps) Sock - Left foot (one step) Sock - Right foot (one step) Underwear (three steps) ARTICLES SCORE Total number of steps: 8 DRESSING - LOWER BODY - STEP 1: Does the patient require help when dressing below the waist? Yes. DRESSING - LOWER BODY - STEP 2: Does the patient require the assistance of a helper? Yes. DRESSING - LOWER BODY - STEP 3: Does the helper touch the patient while dressing? Yes. DRESSING - LOWER BODY - STEP 4: How many of the total steps does the patient complete on his/her own? 0 DRESSING - LOWER BODY - STEP 5: Does patient require total assistance for dressing below the waist such as the helper holding clothin g and performing basically all the activities? No. DRESSING - LOWER BODY - SCORE: 2-MAX TOILETING: Activity did not occur on this shift TOILETING - SCORE: 0-UNK BLADDER MANAGEMENT: Activity did not occur on this shift BLADDER MANAGEMENT - SCORE: 7-IND BOWEL MANAGEMENT: Activity did not occur on this shift BOWEL MANAGEMENT - SCORE: 7-IND TRANSFERS: BED, CHAIR, WHEELCHAIR: Activity did not occur on this shift TRANSFERS: BED, CHAIR, WHEELCHAIR - SCORE: 0-UNK TRANSFERS: TOILET: Activity did not occur on this shift TRANSFERS: TOILET - SCORE: 0-UNK TRANSFERS: SHOWER: TRANSFERS: SHOWER - STEP 1: Does the patient require assistance with shower transfers? Yes. TRANSFERS: SHOWER - STEP 2: Does the patient require the assistance of a helper? Yes. TRANSFERS: SHOWER - STEP 3: How much assistance does the patient require from the helper? More than incidental help TRANSFERS: SHOWER - STEP 4: How much more help does the patient require from the helper? Lifting the patient either up OR down fr om the wheelchair onto the shower chair TRANSFERS: SHOWER - SCORE: 3-MOD TRANSFERS: TUB: Activity did not occur on this shift TRANSFERS: TUB - SCORE: 0-UNK LOCOMOTION: WALK: Activity did not occur on this shift LOCOMOTION: WALK - SCORE: 0-UNK LOCOMOTION: WHEELCHAIR: Activity did not occur on this shift LOCOMOTION: WHEELCHAIR - SCORE: 0-UNK LOCOMOTION: STAIRS: Activity did not occur on this shift LOCOMOTION: STAIRS - SCORE: 0-UNK COMPREHENSION: COMPREHENSION: TYPE: Both COMPREHENSION - STEP 1: Does the patient require help to understand complex and abstract ideas (such as current events, finan joseph, discharge planning, medical issues, relationships, etc)? No. COMPREHENSION - STEP 2: Does the patient need extra time, require an assistive device (such as glasses, hearing aids, or an a ugmentative communication system), OR does s/he have mild difficulty expressing complex and abstract ideas (including mild dysarthria or mild word-finding problems)? Yes. COMPREHENSION - SCORE: 6-EDIN EXPRESSION EXPRESSION: TYPE: Both EXPRESSION - STEP 1: Does the patient require help expressing complex and abstract ideas (such as current events, finances , discharge planning, medical issues, relationships, etc)? No. EXPRESSION - STEP 2: Does the patient need extra time, require an assistive device (such as augmentive communication syste m or a communication board), OR does s/he have mild difficulty expressing complex and abstract ideas (including mild dysarthria or mild word-find problems)? Yes. EXPRESSION - SCORE: 6-EDIN SOCIAL INTERACTION: SOCIAL INTERACTION - STEP 1: Does the patient require a helper to interact with others in social and therapeutic situations? No. SOCIAL INTERACTION - STEP 2: Does the patient need extra time in social situations, OR does s/he interact with staff, other patien ts, and family members ONLY in structured environments, OR does s/he require medication for social in teraction? No. SOCIAL INTERACTION - SCORE: 7-IND PROBLEM SOLVING: PROBLEM SOLVING - STEP 1: Does the patient need help to solve complex problems such as managing a checking account or confronti ng interpersonal problems? Yes. PROBLEM SOLVING - STEP 2: Does the patient solve basic routine problems half or more of the time? Yes. PROBLEM SOLVING - STEP 3: How often does the patient need help to solve basic routine problems? Less than 10% of the time PROBLEM SOLVING - SCORE: 5-SUP MEMORY: MEMORY - STEP 1: Does the patient need help to remember frequently encountered people, daily routines, and executing r equests? Yes. MEMORY - STEP 2: How often does the patient need help to remember frequently encountered people, daily routines, and e xecuting requests? 10% - 24% of the time MEMORY - SCORE: 4-MIN SIGNATURE PANEL: The following modified sections: Eating - Score, Grooming - Score, Bathing - Score, Dressing - Upper Body - Score, Dressing - Lower Body - Score, Toileting - Score, Transfers: Bed, Chair, Wheelchair - S core, Transfers: Toilet - Score, Transfers: Tub - Score, Transfers: Shower - Score, Comprehension - S core, Expression - Score, Social Interaction - Score, Problem Solving - Score, Memory - Score were [e lectronically] signed by Mariluz Alan OT on TueOct 19 2017 15:44:12 GMT-0500 (Central Daylight T shanice)
--- NOTE | 2017-10-19 16:54 | FAST ---
SHIFT START DATE/TIME: 10/19/2017 07:00 (CDT) SHIFT END DATE/TIME: 10/19/2017 19:00 (CDT) NAME GEOVANNA BUSBY DATE OF : 1930 DATE OF ADMISSION: 10/17/2017 15:42 (CDT) PHONE: AGE: 87 [facility]# [id number] GENDER: Female ENCOUNTER PHYSICIAN: Dr. Dave Webber M.D. ADMISSION DIAGNOSIS: - Orthopaedic Disorders 08 - Femur (Shaft) Fracture (08.2) Left Femoral Neck Fracture. EATING: EATING - STEP 1: Does the patient require assistance when eating? Yes. EATING - STEP 2: Does the patient require the assistance of a helper? Yes. EATING - STEP 3: Does the patient perform half or more of the eating tasks? Yes. EATING - STEP 4: Does the patient need only supervision, cuing, coaxing OR help to apply an orthosis OR help to cut fo od, open containers, pour liquids, or butter bread? Yes. EATING - SCORE: 5-SUP GROOMING: Comb/brush hair Oral care Wash, rinse, and dry face Wash, rinse, and dry hands GROOMING - STEP 1: Does the patient require assistance when grooming? Yes. GROOMING - STEP 2: Does the patient require the assistance of a helper? Yes. GROOMING - STEP 3: How much assistance does the patient require from the helper? Steadying assistance from the helper GROOMING - SCORE: 4-MIN BATHING: Activity did not occur on this shift BATHING - SCORE: 0-UNK DRESSING - UPPER BODY: Activity did not occur on this shift ARTICLES SCORE Total number of steps: 0 DRESSING - UPPER BODY - SCORE: 0-UNK DRESSING - LOWER BODY: Activity did not occur on this shift ARTICLES SCORE Total number of steps: 0 DRESSING - LOWER BODY - SCORE: 0-UNK TOILETING: TOILETING - STEP 1: Does the patient require assistance with toileting? Yes. TOILETING - STEP 2: Does the patient require the assistance of a helper? Yes. TOILETING - STEP 3: How much assistance does the patient require from the helper? Only supervision TOILETING - SCORE: 5-SUP BLADDER MANAGEMENT: BLADDER MANAGEMENT - STEP 1: Does the patient control the bladder completely and intentionally without equipment or devices or med ications, and is always continent? No. BLADDER MANAGEMENT - STEP 2: Does the patient require the assistance of a helper? Yes. BLADDER MANAGEMENT - STEP 3: How much assistance does the patient require from the helper? Patient requires contact assistance fro m the helper BLADDER MANAGEMENT - STEP 4: How much contact assistance does the patient require from the helper? Patient requires minimal assist ance to maintain an external device - by positioning, and the patient performs 75% or more of bladder management tasks, while the helper provides less than 25% of the assistance to position patient on / off bedpan BLADDER MANAGEMENT - SCORE: 4-MIN BLADDER MANAGEMENT - FREQUENCY OF ACCIDENTS: BLADDER MANAGEMENT(FA) - STEP 1: How many accidents has the patient had during the current shift? 0 BOWEL MANAGEMENT: Activity did not occur on this shift BOWEL MANAGEMENT - SCORE: 7-IND BOWEL MANAGEMENT - FREQUENCY OF ACCIDENTS: BOWEL MANAGEMENT(FA) - STEP 1: How many accidents has the patient had during the current shift? 0 TRANSFERS: BED, CHAIR, WHEELCHAIR: TRANSFERS: BED, CHAIR, WHEELCHAIR - STEP 1: Does the patient require assistance with bed, chair, or wheelchair transfers? Yes. TRANSFERS: BED, CHAIR, WHEELCHAIR - STEP 2: Does the patient require the assistance of a helper? Yes. TRANSFERS: BED, CHAIR, WHEELCHAIR - STEP 3: How much assistance does the patient require from the helper? Lifting of the legs TRANSFERS: BED, CHAIR, WHEELCHAIR - STEP 4: How many legs does the patient require the helper to lift? one leg TRANSFERS: BED, CHAIR, WHEELCHAIR - SCORE: 4-MIN TRANSFERS: TOILET: TRANSFERS: TOILET - STEP 1: Does the patient require assistance with toilet transfers? Yes. TRANSFERS: TOILET - STEP 2: Does the patient require the assistance of a helper? Yes. TRANSFERS: TOILET - STEP 3: How much assistance does the patient require from the helper? Patient performs half or more of the tr ansferring tasks TRANSFERS: TOILET - STEP 4: Does the patient need only incidental help such as contact guard or steadying during toilet transfer? Yes. TRANSFERS: TOILET - SCORE: 4-MIN TRANSFERS: SHOWER: Activity did not occur on this shift TRANSFERS: SHOWER - SCORE: 0-UNK TRANSFERS: TUB: Activity did not occur on this shift TRANSFERS: TUB - SCORE: 0-UNK LOCOMOTION: WALK: Activity did not occur on this shift LOCOMOTION: WALK - SCORE: 0-UNK LOCOMOTION: WHEELCHAIR: LOCOMOTION: WHEELCHAIR - STEP 1: Does the patient need help to go 150 feet in a wheelchair? Yes. LOCOMOTION: WHEELCHAIR - STEP 2: How much assistance does the patient need from the helper? Only supervision, cuing, or coaxing LOCOMOTION: WHEELCHAIR - SCORE: 5-SUP COMPREHENSION: COMPREHENSION - STEP 1: Does the patient require help to understand complex and abstract ideas (such as current events, finan joseph, discharge planning, medical issues, relationships, etc)? No. COMPREHENSION - STEP 2: Does the patient need extra time, require an assistive device (such as glasses, hearing aids, or an a ugmentative communication system), OR does s/he have mild difficulty expressing complex and abstract ideas (including mild dysarthria or mild word-finding problems)? Yes. COMPREHENSION - SCORE: 6-EDIN EXPRESSION EXPRESSION: TYPE: Both EXPRESSION - STEP 1: Does the patient require help expressing complex and abstract ideas (such as current events, finances , discharge planning, medical issues, relationships, etc)? No. EXPRESSION - STEP 2: Does the patient need extra time, require an assistive device (such as augmentive communication syste m or a communication board), OR does s/he have mild difficulty expressing complex and abstract ideas (including mild dysarthria or mild word-find problems)? Yes. EXPRESSION - SCORE: 6-EDIN SOCIAL INTERACTION: SOCIAL INTERACTION - STEP 1: Does the patient require a helper to interact with others in social and therapeutic situations? No. SOCIAL INTERACTION - STEP 2: Does the patient need extra time in social situations, OR does s/he interact with staff, other patien ts, and family members ONLY in structured environments, OR does s/he require medication for social in teraction? Yes, patient needs extra time SOCIAL INTERACTION - SCORE: 6-EDIN PROBLEM SOLVING: PROBLEM SOLVING - STEP 1: Does the patient need help to solve complex problems such as managing a checking account or confronti ng interpersonal problems? Yes. PROBLEM SOLVING - STEP 2: Does the patient solve basic routine problems half or more of the time? Yes. PROBLEM SOLVING - STEP 3: How often does the patient need help to solve basic routine problems? Less than 10% of the time PROBLEM SOLVING - SCORE: 5-SUP MEMORY: MEMORY - STEP 1: Does the patient need help to remember frequently encountered people, daily routines, and executing r equests? No. MEMORY - STEP 2: Does the patient have slight difficulty recognizing frequently encountered people, daily routines, or executing requests without the need for repetition or using self-initiated or environmental cues to remember? Yes. MEMORY - SCORE: 6-EDIN SIGNATURE PANEL: The following modified sections: Eating - Score, Grooming - Score, Bathing - Score, Dressing - Upper Body - Score, Dressing - Lower Body - Score, Toileting - Score, Bladder Management - Score, Bowel Man agement - Score, Transfers: Bed, Chair, Wheelchair - Score, Transfers: Toilet - Score, Transfers: Karin wer - Score, Transfers: Tub - Score, Locomotion: Walk - Score, Locomotion: Wheelchair - Score, Compre hension - Score, Expression - Score, Social Interaction - Score, Problem Solving - Score, Memory - Sc ore were [electronically] signed by Aminta Mueller C.N.A. on TueOct 19 2017 15:54:41 T-0500 (Centra l Daylight Time)
[2017-10-19] MEDS: ENOXAPARIN 40 MG/0.4 ML SQ SCH (17:07)
--- NOTE | 2017-10-19 18:59 | R.PN ---
ENCOUNTER DATE AND TIME: 10/19/2017 17:56 (CDT) NAME GEOVANNA BUSBY DATE OF : 1930 DATE OF ADMISSION: 10/17/2017 15:42 (CDT) Left Femoral Neck FractureCHIEF COMPLAINT: Left hip fracture SUBJECTIVE: Pt denied any Shortness of Breath. Pt denied any depression. Ambulated 500' using a rolling walker with standby assistance. Up and down 15 steps using bilateral h andrails with contact guard assistance. VITAL SIGNS Temperature: 98.2 F SBP/DBP: 142/64 Pulse: 86 Resp: 16 MEDICATION ALLERGIES: Penicillin Sulfa ENVIRONMENTAL ALLERGIES: None Known - Substance Allergies None Known - Other Allergies None Known NURSING: - Shower allowing shower - Lab Results blood Sugar Check ACHS - Skin care per protocol PRECAUTIONS: - Weight Bearing Precaution WBAT left LE - Fall Precaution Bed and chair alarm ACTIVITIES OOB only with supervision THERAPIES: - Occupational Therapy Evaluate and Treat. - Physical Therapy Evaluate and Treat. PHYSICAL EXAM - Gen Alert and awake Lying in bed No apparent distress Oriented to: person, time, and place - Skin No skin breakdown. Normacephalic - Eyes No abnormalities - ENMT No abnormalities - Neck No abnormalities - CVS RRR - Chest Clear - Abd Soft - GI Non distended Deferred - No abnormalities - Ext No significant edema - MSK Unremarkable - Neuro No focal deficits - Psych No abnormalities ASSESSMENT: Pt. is a 87 yo Right-handed white female.Her impairment category is Orthopaedic Disorders 08 - Femur (Shaft) Fracture (08.2).Pre-morbidly, Pt. was independent/mod-I in Transfers Control, Communication, Social Cognition, Self-Care, Locomotion, and Sphincter Control; and she had good Sphincter Control.C urrently, she has deficits of Safety Awareness, Transfers Control, Balance, Self-Care, Locomotion, an d Endurance.Pt. is now referred to [facility] for acute in-patient rehabilitat ion in order to maximize patient's functional independence in activities of daily living, strength, R OM, and mobility.- Rehab Goal Patient has realistic goal of being discharged at assistance level 6-Leatha to reside at Home with Fam boyd/Relatives. MDM/PLAN: - Diet Type Continue Regular - Physical Therapy Decreased range of motion - to improve, our physical therapists will perform initial evaluation of p t's status upon admission and devise an individualized program for increasing patient's Range of Augusto on. Gait dysfunction - to improve, our physical therapists will perform initial evaluation of pt's statu s upon admission and devise an individualized program for Gait Training, and Wheel Chair mobility Inability to transfer - to improve, our physical therapists will perform initial evaluation of pt's status upon admission and devise an individualized program for Bed mobility Need for home safety evaluation - to improve, our physical therapists will perform initial evaluatio n of pt's status upon admission and devise an individualized program for Home Evaluation Need in caregiver upon discharge - to improve, our physical therapists will perform initial evaluati on of pt's status upon admission and devise an individualized program for Caregiver Training New precaution - to improve, our physical therapists will perform initial evaluation of pt's status upon admission and devise an individualized program for Patient precaution education Edema - to improve, our physical therapists will perform initial evaluation of pt's status upon admis pascual and devise an individualized program for Elevation Training, and Lymphedema Therapy Poor balance - to improve, our physical therapists will perform initial evaluation of pt's status up on admission and devise an individualized program for Balance Training Poor endurance - to improve, our physical therapists will perform initial evaluation of pt's status upon admission and devise an individualized program for Endurance Training Weakness - to improve, our physical therapists will perform initial evaluation of pt's status upon a dmission and devise an individualized program for Aquatic Therapy, Neuromuscular Reeducation, and Str engthening Achieving independence - to improve, our physical therapists will perform initial evaluation of pt's status upon admission and devise an individualized program for Community Reintegration Activities - Diet - Liquid Texture Continue Regular - Tube Feed Continue N/A - Lab Results blood Sugar Check ACHS - Weight Bearing Precaution WBAT left LE - Fall Precaution Bed and chair alarm - Skin care per protocol - Diet - Solid Texture Continue Regular - Shower allowing shower - Occupational Therapy ADL deficits - to improve, our occupation therapists will perform initial evaluation of pt's status upon admission and devise an individualized program for Bathing, Bed mobility, Community Reintegratio n, Cooking, Dressing, Eating, Fine Motor Skills, Grooming, Homemaking, Kitchen Mobility, Laundry, Pat ient Education, Safety Awareness, Splinting - Positioning, Transfers(Toilet, Tub, Shower), and Wheel Chair Management Need for customer care agent - to improve, our occupation therapists will perform initial evaluation of pt's status upon admission and devise an individualized program for Caregiver Training Weakness - to improve, our occupation therapists will perform initial evaluation of pt's status upon admission and devise an individualized program for Aquatic Therapy, Balance, Endurance, UE ROM, and UE strengthening FUNCTIONAL STATUS: UPDATED AT WEEKLY TEAM CONFERENCE - Bladder Same accident frequency: 7-Ind - No accidents in the past 7 days - Bowel Same accident frequency: 7-Ind - No accidents in the past 7 days - Walking Same score based on distance walked: 2(50-149ft) - Wheelchair Same score based on distance traveled: 0(N/A) FUNCTIONAL STATUS: - Self-Care A. Eating sup B. Grooming sup C. Bathing sup D. Dressing - Upper sup E. Dressing - Lower sup F. Toileting Susie - Sphincter Control G: Bladder control Ind H: Bowel control Ind - Transfers Control I. Bed/Chair/Wheelchair Susie J. Toilet Susie K. Tub/Shower ADNO - Locomotion L. Walk/Wheelchair (C) Susie L. Walk/Wheelchair (W) Susie M. Stairs ADNO - Communication N. Comprehension (B) Leatha O. Expression (B) Leatha - Social Cognition P. Social Interaction Leatha Q. Problem Solving Leatha R. Memory Leatha - Endurance Fair - Balance Fair - Safety Awareness Fair CURRENT FUNC. DEFICITS: Safety Awareness, Transfers Control, Balance, Self-Care, Locomotion, and Endurance SIGNATURE PANEL: (CDT)
--- NOTE | 2017-10-19 19:09 | FAST ---
ENCOUNTER DATE AND TIME: 10/19/2017 08:00 (CDT) NAME GEOVANNA BUSBY DATE OF : 1930 DATE OF ADMISSION: 10/17/2017 15:42 (CDT) PHONE: AGE: 87 N# [id number] GENDER: Female ENCOUNTER PHYSICIAN: Dr. Dave Webber M.D. ADMISSION DIAGNOSIS: - Orthopaedic Disorders 08 - Femur (Shaft) Fracture (08.2) Left Femoral Neck Fracture. EATING: Activity did not occur on this shift EATING - SCORE: 0-UNK GROOMING: Activity did not occur on this shift GROOMING - SCORE: 0-UNK BATHING: Activity did not occur on this shift BATHING - SCORE: 0-UNK DRESSING - UPPER BODY: Activity did not occur on this shift Patient is not dressing in public clothing ARTICLES SCORE Total number of steps: 0 DRESSING - UPPER BODY - SCORE: 0-UNK DRESSING - LOWER BODY: Activity did not occur on this shift Patient is not dressing in public clothing ARTICLES SCORE Total number of steps: 0 DRESSING - LOWER BODY - SCORE: 0-UNK TOILETING: Activity did not occur on this shift TOILETING - SCORE: 0-UNK BLADDER MANAGEMENT: Activity did not occur on this shift BLADDER MANAGEMENT - SCORE: 7-IND BOWEL MANAGEMENT: Activity did not occur on this shift BOWEL MANAGEMENT - SCORE: 7-IND TRANSFERS: BED, CHAIR, WHEELCHAIR: Activity did not occur on this shift TRANSFERS: BED, CHAIR, WHEELCHAIR - SCORE: 0-UNK TRANSFERS: TOILET: Activity did not occur on this shift TRANSFERS: TOILET - SCORE: 0-UNK TRANSFERS: SHOWER: Activity did not occur on this shift TRANSFERS: SHOWER - SCORE: 0-UNK TRANSFERS: TUB: Activity did not occur on this shift TRANSFERS: TUB - SCORE: 0-UNK LOCOMOTION: WALK: Activity did not occur on this shift LOCOMOTION: WALK - SCORE: 0-UNK LOCOMOTION: WHEELCHAIR: Activity did not occur on this shift LOCOMOTION: WHEELCHAIR - SCORE: 0-UNK LOCOMOTION: STAIRS: Activity did not occur on this shift LOCOMOTION: STAIRS - SCORE: 0-UNK COMPREHENSION: COMPREHENSION - STEP 1: Does the patient require help to understand complex and abstract ideas (such as current events, finan joseph, discharge planning, medical issues, relationships, etc)? Yes. COMPREHENSION - STEP 2: Does the patient require help to understand questions or statements about basic needs or ideas (such as hunger, thirst, sleep, safety, daily schedule, room location, or discomfort) half or more of the t shanice? No. COMPREHENSION - STEP 3: How often does the patient need help to understand directions and conversation about basic needs? Les s than 10% of the time COMPREHENSION - SCORE: 5-SUP EXPRESSION EXPRESSION - STEP 1: Does the patient require help expressing complex and abstract ideas (such as current events, finances , discharge planning, medical issues, relationships, etc)? No. EXPRESSION - STEP 2: Does the patient need extra time, require an assistive device (such as augmentive communication syste m or a communication board), OR does s/he have mild difficulty expressing complex and abstract ideas (including mild dysarthria or mild word-find problems)? Yes. EXPRESSION - SCORE: 6-EDIN SOCIAL INTERACTION: SOCIAL INTERACTION - STEP 1: Does the patient require a helper to interact with others in social and therapeutic situations? No. SOCIAL INTERACTION - STEP 2: Does the patient need extra time in social situations, OR does s/he interact with staff, other patien ts, and family members ONLY in structured environments, OR does s/he require medication for social in teraction? No. SOCIAL INTERACTION - SCORE: 7-IND PROBLEM SOLVING: PROBLEM SOLVING - STEP 1: Does the patient need help to solve complex problems such as managing a checking account or confronti ng interpersonal problems? No. PROBLEM SOLVING - STEP 2: Does the patient require extra time to make decisions or solve problems, OR does s/he have slight dif ficulty reading, initiating, or self-correcting in unfamiliar situations? Yes, patient needs extra ti me. PROBLEM SOLVING - SCORE: 6-EDIN MEMORY: MEMORY - STEP 1: Does the patient need help to remember frequently encountered people, daily routines, and executing r equests? Yes. MEMORY - STEP 2: How often does the patient need help to remember frequently encountered people, daily routines, and e xecuting requests? 25% - 49% of the time MEMORY - SCORE: 3-MOD SIGNATURE PANEL: The following modified sections: Comprehension - Score, Expression - Score, Social Interaction - Scor e, Problem Solving - Score, Memory - Score were [electronically] signed by ALISON Ayala on Tue 18:10:00 T-0500 (Central Daylight Time)
[2017-10-19] MEDS: FLUTICASONE (FLONASE) 50MCG NASAL SPRAY NAS SCH (20:50)
--- NOTE | 2017-10-20 03:15 | FAST ---
SHIFT START DATE/TIME: 10/19/2017 19:00 (CDT) SHIFT END DATE/TIME: 10/20/2017 07:00 (CDT) NAME GEOVANNA BUSBY DATE OF : 1930 DATE OF ADMISSION: 10/17/2017 15:42 (CDT) PHONE: AGE: 87 [facility]# [id number] GENDER: Female ENCOUNTER PHYSICIAN: Dr. Dave Webber M.D. ADMISSION DIAGNOSIS: - Orthopaedic Disorders 08 - Femur (Shaft) Fracture (08.2) Left Femoral Neck Fracture. EATING: Activity did not occur on this shift EATING - SCORE: 0-UNK GROOMING: Oral care Wash, rinse, and dry face Wash, rinse, and dry hands GROOMING - STEP 1: Does the patient require assistance when grooming? Yes. GROOMING - STEP 2: Does the patient require the assistance of a helper? Yes. GROOMING - STEP 3: How much assistance does the patient require from the helper? Incidental touching assistance from the helper while grooming GROOMING - SCORE: 4-MIN BATHING: Activity did not occur on this shift BATHING - SCORE: 0-UNK DRESSING - UPPER BODY: Patient is not dressing in public clothing ARTICLES SCORE Total number of steps: 0 DRESSING - UPPER BODY - SCORE: 0-UNK DRESSING - LOWER BODY: Patient is not dressing in public clothing ARTICLES SCORE Total number of steps: 0 DRESSING - LOWER BODY - SCORE: 0-UNK TOILETING: TOILETING - STEP 1: Does the patient require assistance with toileting? Yes. TOILETING - STEP 2: Does the patient require the assistance of a helper? Yes. TOILETING - STEP 3: How much assistance does the patient require from the helper? Hands-on assistance from the helper TOILETING - STEP 4: Of the 3 tasks: 1) Adjusting clothing prior to use, 2) Cleansing of perineal area, 3) Adjusting clot nolberto after use; How many tasks does the patient perform WITHOUT assistance of the helper? Three tasks with steadying assistance from the helper TOILETING - SCORE: 4-MIN BLADDER MANAGEMENT: BLADDER MANAGEMENT - STEP 1: Does the patient control the bladder completely and intentionally without equipment or devices or med ications, and is always continent? No. BLADDER MANAGEMENT - STEP 2: Does the patient require the assistance of a helper? Yes. BLADDER MANAGEMENT - STEP 3: How much assistance does the patient require from the helper? Patient requires contact assistance fro m the helper BLADDER MANAGEMENT - STEP 4: How much contact assistance does the patient require from the helper? Patient requires minimal assist ance to maintain an external device - by positioning, and the patient performs 75% or more of bladder management tasks, while the helper provides less than 25% of the assistance to position patient on / off bedpan BLADDER MANAGEMENT - SCORE: 4-MIN BOWEL MANAGEMENT: Activity did not occur on this shift BOWEL MANAGEMENT - SCORE: 7-IND TRANSFERS: BED, CHAIR, WHEELCHAIR: TRANSFERS: BED, CHAIR, WHEELCHAIR - STEP 1: Does the patient require assistance with bed, chair, or wheelchair transfers? Yes. TRANSFERS: BED, CHAIR, WHEELCHAIR - STEP 2: Does the patient require the assistance of a helper? Yes. TRANSFERS: BED, CHAIR, WHEELCHAIR - STEP 3: How much assistance does the patient require from the helper? Steadying/guiding assistance TRANSFERS: BED, CHAIR, WHEELCHAIR - SCORE: 4-MIN TRANSFERS: TOILET: TRANSFERS: TOILET - STEP 1: Does the patient require assistance with toilet transfers? Yes. TRANSFERS: TOILET - STEP 2: Does the patient require the assistance of a helper? Yes. TRANSFERS: TOILET - STEP 3: How much assistance does the patient require from the helper? Patient performs half or more of the tr ansferring tasks TRANSFERS: TOILET - STEP 4: Does the patient need only incidental help such as contact guard or steadying during toilet transfer? No. Patient needs more than incidental help TRANSFERS: TOILET - SCORE: 3-MOD TRANSFERS: SHOWER: Activity did not occur on this shift TRANSFERS: SHOWER - SCORE: 0-UNK TRANSFERS: TUB: Activity did not occur on this shift TRANSFERS: TUB - SCORE: 0-UNK LOCOMOTION: WALK: Activity did not occur on this shift LOCOMOTION: WALK - SCORE: 0-UNK LOCOMOTION: WHEELCHAIR: Activity did not occur on this shift LOCOMOTION: WHEELCHAIR - SCORE: 0-UNK COMPREHENSION: COMPREHENSION: TYPE: Both COMPREHENSION - STEP 1: Does the patient require help to understand complex and abstract ideas (such as current events, finan joseph, discharge planning, medical issues, relationships, etc)? No. COMPREHENSION - STEP 2: Does the patient need extra time, require an assistive device (such as glasses, hearing aids, or an a ugmentative communication system), OR does s/he have mild difficulty expressing complex and abstract ideas (including mild dysarthria or mild word-finding problems)? Yes. COMPREHENSION - SCORE: 6-EDIN EXPRESSION EXPRESSION: TYPE: Both EXPRESSION - STEP 1: Does the patient require help expressing complex and abstract ideas (such as current events, finances , discharge planning, medical issues, relationships, etc)? No. EXPRESSION - STEP 2: Does the patient need extra time, require an assistive device (such as augmentive communication syste m or a communication board), OR does s/he have mild difficulty expressing complex and abstract ideas (including mild dysarthria or mild word-find problems)? Yes. EXPRESSION - SCORE: 6-EDIN SOCIAL INTERACTION: SOCIAL INTERACTION - STEP 1: Does the patient require a helper to interact with others in social and therapeutic situations? No. SOCIAL INTERACTION - STEP 2: Does the patient need extra time in social situations, OR does s/he interact with staff, other patien ts, and family members ONLY in structured environments, OR does s/he require medication for social in teraction? No. SOCIAL INTERACTION - SCORE: 7-IND PROBLEM SOLVING: PROBLEM SOLVING - STEP 1: Does the patient need help to solve complex problems such as managing a checking account or confronti ng interpersonal problems? No. PROBLEM SOLVING - STEP 2: Does the patient require extra time to make decisions or solve problems, OR does s/he have slight dif ficulty reading, initiating, or self-correcting in unfamiliar situations? Yes, patient needs extra ti me. PROBLEM SOLVING - SCORE: 6-EDIN MEMORY: MEMORY - STEP 1: Does the patient need help to remember frequently encountered people, daily routines, and executing r equests? No. MEMORY - STEP 2: Does the patient have slight difficulty recognizing frequently encountered people, daily routines, or executing requests without the need for repetition or using self-initiated or environmental cues to remember? Yes. MEMORY - SCORE: 6-EDIN
[2017-10-20] MEDS: LEVOTHYROXINE SOD 0.1 MG TAB PO SCH (05:20)
[2017-10-20 06:31] LABS: Absolute Lymphocytes (CBC) 1.7 K/uL (0.7-4.9); Absolute Monocytes 0.6 K/uL (0.1-1.3); Absolute Neutrophil 1.8 K/uL (1.8-8.0); Basophils % 0.6 % (0-1.3); Eosinophils % 3.4 % (0-4.4); Hematocrit 27.4 % (36.0-45.0); Lymphocytes % 39.7 % (15.3-44.8); MCH 30.5 pg (27.0-35.0); MCV 89.2 fL (80-100); MPV 8.1 fL (7.6-11.3); Monocytes % 13.1 % (3.3-12.3); RBC Red Blood Cell Count 3.07 M/uL (3.86-4.86)
[2017-10-20 07:22] LABS: Albumin 2.5 g/dL (3.2-5.5); Magnesium 1.9 mg/dL (1.8-2.5); Potassium 4.3 mEq/L (3.6-5.0); Prealbumin 13.2 mg/dl (18-38)
[2017-10-20] MEDS: FLUTICASONE (FLONASE) 50MCG NASAL SPRAY NAS SCH ×2 (08:00→20:38)
[2017-10-20] MEDS: PROMOD 30 ML DOSE PO SCH ×2 (08:00→20:38)
[2017-10-20] MEDS: FERROUS SULFATE 325 MG TAB PO SCH ×2 (08:09→20:37)
[2017-10-20] MEDS: TRAMADOL HCL 50 MG TAB PO PRN (08:10)
[2017-10-20] MEDS: GABAPENTIN 300 MG CAP PO SCH ×3 (08:10→20:37)
[2017-10-20] MEDS: GLIMEPIRIDE 2 MG TABLET PO SCH ×2 (08:10→16:43)
[2017-10-20] MEDS: LISINOPRIL 20 MG TAB PO SCH (08:10)
--- NOTE | 2017-10-20 15:56 | FAST ---
SHIFT START DATE/TIME: 10/20/2017 07:00 (CDT) SHIFT END DATE/TIME: 10/20/2017 19:00 (CDT) NAME GEOVANNA BUSBY DATE OF : 1930 DATE OF ADMISSION: 10/17/2017 15:42 (CDT) PHONE: AGE: 87 [facility]# [id number] GENDER: Female ENCOUNTER PHYSICIAN: Dr. Dave Webber M.D. ADMISSION DIAGNOSIS: - Orthopaedic Disorders 08 - Femur (Shaft) Fracture (08.2) Left Femoral Neck Fracture. EATING: EATING - STEP 1: Does the patient require assistance when eating? Yes. EATING - STEP 2: Does the patient require the assistance of a helper? Yes. EATING - STEP 3: Does the patient perform half or more of the eating tasks? Yes. EATING - STEP 4: Does the patient need only supervision, cuing, coaxing OR help to apply an orthosis OR help to cut fo od, open containers, pour liquids, or butter bread? Yes. EATING - SCORE: 5-SUP GROOMING: GROOMING - STEP 1: Does the patient require assistance when grooming? Yes. GROOMING - STEP 2: Does the patient require the assistance of a helper? Yes. GROOMING - STEP 3: How much assistance does the patient require from the helper? Only prior equipment preparation/set up from the helper GROOMING - SCORE: 5-SUP BATHING: Activity did not occur on this shift BATHING - SCORE: 0-UNK DRESSING - UPPER BODY: Bra (three steps) T-shirt/pullover shirt (four steps) ARTICLES SCORE Total number of steps: 7 DRESSING - UPPER BODY - STEP 1: Does the patient require help when dressing above the waist? Yes. DRESSING - UPPER BODY - STEP 2: Does the patient require the assistance of a helper? Yes. DRESSING - UPPER BODY - STEP 3: Does the helper touch the patient while dressing? No. DRESSING - UPPER BODY - SCORE: 5-SUP DRESSING - LOWER BODY: Elastic waist pants (three steps) Underwear (three steps) ARTICLES SCORE Total number of steps: 6 DRESSING - LOWER BODY - STEP 1: Does the patient require help when dressing below the waist? Yes. DRESSING - LOWER BODY - STEP 2: Does the patient require the assistance of a helper? No. Patient requires an assistive device such as a medical or surgical instrument maker. OR s/he takes more than reasonable time as s/he dresses the lower body, OR there is a con cern for safety when s/he dresses the lower body DRESSING - LOWER BODY - SCORE: 6-EDIN TOILETING: TOILETING - STEP 1: Does the patient require assistance with toileting? Yes. TOILETING - STEP 2: Does the patient require the assistance of a helper? Yes. TOILETING - STEP 3: How much assistance does the patient require from the helper? Only supervision TOILETING - SCORE: 5-SUP BLADDER MANAGEMENT: BLADDER MANAGEMENT - STEP 1: Does the patient control the bladder completely and intentionally without equipment or devices or med ications, and is always continent? No. BLADDER MANAGEMENT - STEP 2: Does the patient require the assistance of a helper? Yes. BLADDER MANAGEMENT - STEP 3: How much assistance does the patient require from the helper? Only supervision, stand-by, cuing, or c oaxing BLADDER MANAGEMENT - SCORE: 5-SUP BLADDER MANAGEMENT - FREQUENCY OF ACCIDENTS: BLADDER MANAGEMENT(FA) - STEP 1: How many accidents has the patient had during the current shift? 0 BOWEL MANAGEMENT: BOWEL MANAGEMENT - STEP 1: Does the patient control bowels completely and intentionally without equipment devices or medications AND is always continent? No. BOWEL MANAGEMENT - STEP 2: Does the patient require the assistance of a helper? No, patient requires medication for control such as stool softeners, suppositories, laxatives, enemas, or OTC medications BOWEL MANAGEMENT - SCORE: 6-EDIN BOWEL MANAGEMENT - FREQUENCY OF ACCIDENTS: BOWEL MANAGEMENT(FA) - STEP 1: How many accidents has the patient had during the current shift? 0 TRANSFERS: BED, CHAIR, WHEELCHAIR: TRANSFERS: BED, CHAIR, WHEELCHAIR - STEP 1: Does the patient require assistance with bed, chair, or wheelchair transfers? Yes. TRANSFERS: BED, CHAIR, WHEELCHAIR - STEP 2: Does the patient require the assistance of a helper? Yes. TRANSFERS: BED, CHAIR, WHEELCHAIR - STEP 3: How much assistance does the patient require from the helper? Only supervision TRANSFERS: BED, CHAIR, WHEELCHAIR - SCORE: 5-SUP TRANSFERS: TOILET: TRANSFERS: TOILET - STEP 1: Does the patient require assistance with toilet transfers? Yes. TRANSFERS: TOILET - STEP 2: Does the patient require the assistance of a helper? Yes. TRANSFERS: TOILET - STEP 3: How much assistance does the patient require from the helper? Only supervision, cuing, coaxing, OR he lp to set out transfer equipment or to lock brakes and/or lift foot rests TRANSFERS: TOILET - SCORE: 5-SUP TRANSFERS: SHOWER: Activity did not occur on this shift TRANSFERS: SHOWER - SCORE: 0-UNK TRANSFERS: TUB: Activity did not occur on this shift TRANSFERS: TUB - SCORE: 0-UNK LOCOMOTION: WALK: Activity did not occur on this shift LOCOMOTION: WALK - SCORE: 0-UNK LOCOMOTION: WHEELCHAIR: LOCOMOTION: WHEELCHAIR - STEP 1: Does the patient need help to go 150 feet in a wheelchair? Yes. LOCOMOTION: WHEELCHAIR - STEP 2: How much assistance does the patient need from the helper? Only supervision, cuing, or coaxing LOCOMOTION: WHEELCHAIR - SCORE: 5-SUP COMPREHENSION: COMPREHENSION: TYPE: Both COMPREHENSION - STEP 1: Does the patient require help to understand complex and abstract ideas (such as current events, finan joseph, discharge planning, medical issues, relationships, etc)? No. COMPREHENSION - STEP 2: Does the patient need extra time, require an assistive device (such as glasses, hearing aids, or an a ugmentative communication system), OR does s/he have mild difficulty expressing complex and abstract ideas (including mild dysarthria or mild word-finding problems)? Yes. COMPREHENSION - SCORE: 6-EDIN EXPRESSION EXPRESSION: TYPE: Both EXPRESSION - STEP 1: Does the patient require help expressing complex and abstract ideas (such as current events, finances , discharge planning, medical issues, relationships, etc)? No. EXPRESSION - STEP 2: Does the patient need extra time, require an assistive device (such as augmentive communication syste m or a communication board), OR does s/he have mild difficulty expressing complex and abstract ideas (including mild dysarthria or mild word-find problems)? Yes. EXPRESSION - SCORE: 6-EDIN SOCIAL INTERACTION: SOCIAL INTERACTION - STEP 1: Does the patient require a helper to interact with others in social and therapeutic situations? No. SOCIAL INTERACTION - STEP 2: Does the patient need extra time in social situations, OR does s/he interact with staff, other patien ts, and family members ONLY in structured environments, OR does s/he require medication for social in teraction? No. SOCIAL INTERACTION - SCORE: 7-IND PROBLEM SOLVING: PROBLEM SOLVING - STEP 1: Does the patient need help to solve complex problems such as managing a checking account or confronti ng interpersonal problems? Yes. PROBLEM SOLVING - STEP 2: Does the patient solve basic routine problems half or more of the time? Yes. PROBLEM SOLVING - STEP 3: How often does the patient need help to solve basic routine problems? Less than 10% of the time PROBLEM SOLVING - SCORE: 5-SUP MEMORY: MEMORY - STEP 1: Does the patient need help to remember frequently encountered people, daily routines, and executing r equests? Yes. MEMORY - STEP 2: How often does the patient need help to remember frequently encountered people, daily routines, and e xecuting requests? 10% - 24% of the time MEMORY - SCORE: 4-MIN SIGNATURE PANEL: The following modified sections: Eating - Score, Grooming - Score, Bathing - Score, Dressing - Upper Body - Score, Dressing - Lower Body - Score, Toileting - Score, Bladder Management - Score, Bowel Man agement - Score, Transfers: Bed, Chair, Wheelchair - Score, Transfers: Toilet - Score, Transfers: Karin wer - Score, Transfers: Tub - Score, Locomotion: Walk - Score, Locomotion: Wheelchair - Score, Compre hension - Score, Expression - Score, Social Interaction - Score, Problem Solving - Score, Memory - Sc ore were [electronically] signed by Aminta Mueller C.N.A. on TueOct 20 2017 14:56:10 T-0500 (Centra l Daylight Time)
--- NOTE | 2017-10-20 16:11 | FAST ---
ENCOUNTER DATE AND TIME: 10/20/2017 08:00 (CDT) NAME GEOVANNA BUSBY DATE OF : 1930 DATE OF ADMISSION: 10/17/2017 15:42 (CDT) PHONE: AGE: 87 N# [id number] GENDER: Female ENCOUNTER PHYSICIAN: Dr. Dave Webber M.D. ADMISSION DIAGNOSIS: - Orthopaedic Disorders 08 - Femur (Shaft) Fracture (08.2) Left Femoral Neck Fracture. EATING: Activity did not occur on this shift EATING - SCORE: 0-UNK GROOMING: Activity did not occur on this shift GROOMING - SCORE: 0-UNK BATHING: Activity did not occur on this shift BATHING - SCORE: 0-UNK DRESSING - UPPER BODY: Activity did not occur on this shift Patient is not dressing in public clothing ARTICLES SCORE Total number of steps: 0 DRESSING - UPPER BODY - SCORE: 0-UNK DRESSING - LOWER BODY: Activity did not occur on this shift Patient is not dressing in public clothing ARTICLES SCORE Total number of steps: 0 DRESSING - LOWER BODY - SCORE: 0-UNK TOILETING: Activity did not occur on this shift TOILETING - SCORE: 0-UNK BLADDER MANAGEMENT: Activity did not occur on this shift BLADDER MANAGEMENT - SCORE: 7-IND BOWEL MANAGEMENT: Activity did not occur on this shift BOWEL MANAGEMENT - SCORE: 7-IND TRANSFERS: BED, CHAIR, WHEELCHAIR: TRANSFERS: BED, CHAIR, WHEELCHAIR - STEP 1: Does the patient require assistance with bed, chair, or wheelchair transfers? Yes. TRANSFERS: BED, CHAIR, WHEELCHAIR - STEP 2: Does the patient require the assistance of a helper? Yes. TRANSFERS: BED, CHAIR, WHEELCHAIR - STEP 3: How much assistance does the patient require from the helper? Only supervision TRANSFERS: BED, CHAIR, WHEELCHAIR - SCORE: 5-SUP TRANSFERS: TOILET: Activity did not occur on this shift TRANSFERS: TOILET - SCORE: 0-UNK TRANSFERS: SHOWER: Activity did not occur on this shift TRANSFERS: SHOWER - SCORE: 0-UNK TRANSFERS: TUB: Activity did not occur on this shift TRANSFERS: TUB - SCORE: 0-UNK LOCOMOTION: WALK: LOCOMOTION: WALK - STEP 1: Does the patient need help to walk 150 feet? Yes. LOCOMOTION: WALK - STEP 2: How much assistance does the patient require to walk a minimum of 150 feet? Only supervision, cuing, or coaxing LOCOMOTION: WALK - SCORE: 5-SUP LOCOMOTION: WHEELCHAIR: LOCOMOTION: WHEELCHAIR - STEP 1: Does the patient need help to go 150 feet in a wheelchair? Yes. LOCOMOTION: WHEELCHAIR - STEP 2: How much assistance does the patient need from the helper? Only supervision, cuing, or coaxing LOCOMOTION: WHEELCHAIR - SCORE: 5-SUP LOCOMOTION: STAIRS: LOCOMOTION: STAIRS - STEP 1: Does the patient need help to go up and down 12 to 14 stairs? Yes. LOCOMOTION: STAIRS - STEP 2: How much assistance does the patient need from the helper to go a minimum of 12 to 14 stairs? Only metz pervision, cuing, or coaxing LOCOMOTION: STAIRS - SCORE: 5-SUP COMPREHENSION: COMPREHENSION - SCORE: 0-UNK EXPRESSION EXPRESSION - SCORE: 0-UNK SOCIAL INTERACTION: SOCIAL INTERACTION - SCORE: 0-UNK PROBLEM SOLVING: PROBLEM SOLVING - SCORE: 0-UNK MEMORY: MEMORY - SCORE: 0-UNK SIGNATURE PANEL: The following modified sections: Transfers: Bed, Chair, Wheelchair - Score, Transfers: Toilet - Score , Locomotion: Walk - Score, Locomotion: Wheelchair - Score, Locomotion: Stairs - Score were [electron polina] signed by Live Johnson PTA on TueOct 20 2017 15:11:37 GMT-0500 (Central Daylight Time)
[2017-10-20] MEDS: ENOXAPARIN 40 MG/0.4 ML SQ SCH (16:43)
--- NOTE | 2017-10-20 17:46 | R.PN ---
ENCOUNTER DATE AND TIME: 10/20/2017 16:44 (CDT) NAME GEOVANNA BUSBY DATE OF : 1930 DATE OF ADMISSION: 10/17/2017 15:42 (CDT) Left Femoral Neck FractureCHIEF COMPLAINT: Left hip fracture SUBJECTIVE: Pt denied any Shortness of Breath. Pt denied any depression. Ambulated indoors and outdoors using a rolling walker with standby assistance. Up and down 15 steps u sing bilateral handrails with contact guard assistance. VITAL SIGNS Temperature: 98.2 F SBP/DBP: 139/56 Pulse: 79 Resp: 15 MEDICATION ALLERGIES: Penicillin Sulfa ENVIRONMENTAL ALLERGIES: None Known - Substance Allergies None Known - Other Allergies None Known NURSING: - Shower allowing shower - Lab Results blood Sugar Check ACHS - Skin care per protocol PRECAUTIONS: - Weight Bearing Precaution WBAT left LE - Fall Precaution Bed and chair alarm ACTIVITIES OOB only with supervision THERAPIES: - Occupational Therapy Evaluate and Treat. - Physical Therapy Evaluate and Treat. PHYSICAL EXAM - Gen Alert and awake Lying in bed No apparent distress Oriented to: person, time, and place - Skin No skin breakdown. Normacephalic - Eyes No abnormalities - ENMT No abnormalities - Neck No abnormalities - CVS RRR - Chest Clear - Abd Soft - GI Non distended Deferred - No abnormalities - Ext No significant edema - MSK Unremarkable - Neuro No focal deficits - Psych No abnormalities ASSESSMENT: Pt. is a 87 yo Right-handed white female.Her impairment category is Orthopaedic Disorders 08 - Femur (Shaft) Fracture (08.2).Pre-morbidly, Pt. was independent/mod-I in Transfers Control, Communication, Social Cognition, Self-Care, Locomotion, and Sphincter Control; and she had good Sphincter Control.C urrently, she has deficits of Safety Awareness, Transfers Control, Balance, Self-Care, Locomotion, an d Endurance.Pt. is now referred to [facility] for acute in-patient rehabilitat ion in order to maximize patient's functional independence in activities of daily living, strength, R OM, and mobility.- Rehab Goal Patient has realistic goal of being discharged at assistance level 6-Leatha to reside at Home with Fam boyd/Relatives. MDM/PLAN: - Diet Type Continue Regular - Physical Therapy Decreased range of motion - to improve, our physical therapists will perform initial evaluation of p t's status upon admission and devise an individualized program for increasing patient's Range of Augusto on. Gait dysfunction - to improve, our physical therapists will perform initial evaluation of pt's statu s upon admission and devise an individualized program for Gait Training, and Wheel Chair mobility Inability to transfer - to improve, our physical therapists will perform initial evaluation of pt's status upon admission and devise an individualized program for Bed mobility Need for home safety evaluation - to improve, our physical therapists will perform initial evaluatio n of pt's status upon admission and devise an individualized program for Home Evaluation Need in caregiver upon discharge - to improve, our physical therapists will perform initial evaluati on of pt's status upon admission and devise an individualized program for Caregiver Training New precaution - to improve, our physical therapists will perform initial evaluation of pt's status upon admission and devise an individualized program for Patient precaution education Edema - to improve, our physical therapists will perform initial evaluation of pt's status upon admi ssion and devise an individualized program for Elevation Training, and Lymphedema Therapy Poor balance - to improve, our physical therapists will perform initial evaluation of pt's status up on admission and devise an individualized program for Balance Training Poor endurance - to improve, our physical therapists will perform initial evaluation of pt's status upon admission and devise an individualized program for Endurance Training Weakness - to improve, our physical therapists will perform initial evaluation of pt's status upon a dmission and devise an individualized program for Aquatic Therapy, Neuromuscular Reeducation, and Str engthening Achieving independence - to improve, our physical therapists will perform initial evaluation of pt's status upon admission and devise an individualized program for Community Reintegration Activities - Diet - Liquid Texture Continue Regular - Tube Feed Continue N/A - Lab Results blood Sugar Check ACHS - Weight Bearing Precaution WBAT left LE - Fall Precaution Bed and chair alarm - Skin care per protocol - Diet - Solid Texture Continue Regular - Shower allowing shower - Occupational Therapy ADL deficits - to improve, our occupation therapists will perform initial evaluation of pt's status upon admission and devise an individualized program for Bathing, Bed mobility, Community Reintegratio n, Cooking, Dressing, Eating, Fine Motor Skills, Grooming, Homemaking, Kitchen Mobility, Laundry, Pat ient Education, Safety Awareness, Splinting - Positioning, Transfers(Toilet, Tub, Shower), and Wheel Chair Management Need for primary care provider - to improve, our occupation therapists will perform initial evaluation of pt's status upon admission and devise an individualized program for Caregiver Training Weakness - to improve, our occupation therapists will perform initial evaluation of pt's status upon admission and devise an individualized program for Aquatic Therapy, Balance, Endurance, UE ROM, and UE strengthening FUNCTIONAL STATUS: UPDATED AT WEEKLY TEAM CONFERENCE - Bladder Same accident frequency: 7-Ind - No accidents in the past 7 days - Bowel Same accident frequency: 7-Ind - No accidents in the past 7 days - Walking Same score based on distance walked: 2(50-149ft) - Wheelchair Same score based on distance traveled: 0(N/A) FUNCTIONAL STATUS: - Self-Care A. Eating sup B. Grooming sup C. Bathing sup D. Dressing - Upper sup E. Dressing - Lower sup F. Toileting Susie - Sphincter Control G: Bladder control Ind H: Bowel control Ind - Transfers Control I. Bed/Chair/Wheelchair Susie J. Toilet Susie K. Tub/Shower ADNO - Locomotion L. Walk/Wheelchair (C) Susie L. Walk/Wheelchair (W) Susie M. Stairs ADNO - Communication N. Comprehension (B) Leatha O. Expression (B) Leatha - Social Cognition P. Social Interaction Leatha Q. Problem Solving Leatha R. Memory Leatha - Endurance Fair - Balance Fair - Safety Awareness Fair CURRENT FUNC. DEFICITS: Safety Awareness, Transfers Control, Balance, Self-Care, Locomotion, and Endurance SIGNATURE PANEL: (CDT)
--- NOTE | 2017-10-20 17:51 | FAST ---
ENCOUNTER DATE AND TIME: 10/20/2017 08:00 (CDT) NAME GEOVANNA BUSBY DATE OF : 1930 DATE OF ADMISSION: 10/17/2017 15:42 (CDT) PHONE: AGE: 87 N# [id number] GENDER: Female ENCOUNTER PHYSICIAN: Dr. Dave Webber M.D. ADMISSION DIAGNOSIS: - Orthopaedic Disorders 08 - Femur (Shaft) Fracture (08.2) Left Femoral Neck Fracture. EATING: Activity did not occur on this shift EATING - SCORE: 0-UNK GROOMING: Activity did not occur on this shift GROOMING - SCORE: 0-UNK BATHING: Activity did not occur on this shift BATHING - SCORE: 0-UNK DRESSING - UPPER BODY: Activity did not occur on this shift Patient is not dressing in public clothing ARTICLES SCORE Total number of steps: 0 DRESSING - UPPER BODY - SCORE: 0-UNK DRESSING - LOWER BODY: Activity did not occur on this shift Patient is not dressing in public clothing ARTICLES SCORE Total number of steps: 0 DRESSING - LOWER BODY - SCORE: 0-UNK TOILETING: Activity did not occur on this shift TOILETING - SCORE: 0-UNK BLADDER MANAGEMENT: Activity did not occur on this shift BLADDER MANAGEMENT - SCORE: 7-IND BOWEL MANAGEMENT: Activity did not occur on this shift BOWEL MANAGEMENT - SCORE: 7-IND TRANSFERS: BED, CHAIR, WHEELCHAIR: Activity did not occur on this shift TRANSFERS: BED, CHAIR, WHEELCHAIR - SCORE: 0-UNK TRANSFERS: TOILET: Activity did not occur on this shift TRANSFERS: TOILET - SCORE: 0-UNK TRANSFERS: SHOWER: Activity did not occur on this shift TRANSFERS: SHOWER - SCORE: 0-UNK TRANSFERS: TUB: Activity did not occur on this shift TRANSFERS: TUB - SCORE: 0-UNK LOCOMOTION: WALK: Activity did not occur on this shift LOCOMOTION: WALK - SCORE: 0-UNK LOCOMOTION: WHEELCHAIR: Activity did not occur on this shift LOCOMOTION: WHEELCHAIR - SCORE: 0-UNK LOCOMOTION: STAIRS: Activity did not occur on this shift LOCOMOTION: STAIRS - SCORE: 0-UNK COMPREHENSION: COMPREHENSION - STEP 1: Does the patient require help to understand complex and abstract ideas (such as current events, finan joseph, discharge planning, medical issues, relationships, etc)? No. COMPREHENSION - STEP 2: Does the patient need extra time, require an assistive device (such as glasses, hearing aids, or an a ugmentative communication system), OR does s/he have mild difficulty expressing complex and abstract ideas (including mild dysarthria or mild word-finding problems)? Yes. COMPREHENSION - SCORE: 6-EDIN EXPRESSION EXPRESSION - STEP 1: Does the patient require help expressing complex and abstract ideas (such as current events, finances , discharge planning, medical issues, relationships, etc)? No. EXPRESSION - STEP 2: Does the patient need extra time, require an assistive device (such as augmentive communication syste m or a communication board), OR does s/he have mild difficulty expressing complex and abstract ideas (including mild dysarthria or mild word-find problems)? Yes. EXPRESSION - SCORE: 6-EDIN SOCIAL INTERACTION: SOCIAL INTERACTION - STEP 1: Does the patient require a helper to interact with others in social and therapeutic situations? No. SOCIAL INTERACTION - STEP 2: Does the patient need extra time in social situations, OR does s/he interact with staff, other patien ts, and family members ONLY in structured environments, OR does s/he require medication for social in teraction? No. SOCIAL INTERACTION - SCORE: 7-IND PROBLEM SOLVING: PROBLEM SOLVING - STEP 1: Does the patient need help to solve complex problems such as managing a checking account or confronti ng interpersonal problems? No. PROBLEM SOLVING - STEP 2: Does the patient require extra time to make decisions or solve problems, OR does s/he have slight dif ficulty reading, initiating, or self-correcting in unfamiliar situations? Yes, patient needs extra ti me. PROBLEM SOLVING - SCORE: 6-EDIN MEMORY: MEMORY - STEP 1: Does the patient need help to remember frequently encountered people, daily routines, and executing r equests? Yes. MEMORY - STEP 2: How often does the patient need help to remember frequently encountered people, daily routines, and e xecuting requests? Less than 10% of the time MEMORY - SCORE: 5-SUP SIGNATURE PANEL: The following modified sections: Comprehension - Score, Expression - Score, Social Interaction - Scor e, Problem Solving - Score, Memory - Score were [electronically] signed by ALISON Ayala on Tue 16:51:12 GMT-0500 (Central Daylight Time)
[2017-10-20] MEDS: BENZONATATE 100 MG CAP PO PRN (20:37)
[2017-10-20] MEDS: LORAZEPAM 0.5 MG TABLET PO PRN (20:42)
--- NOTE | 2017-10-21 03:44 | FAST ---
SHIFT START DATE/TIME: 10/20/2017 19:00 (CDT) SHIFT END DATE/TIME: 10/21/2017 07:00 (CDT) NAME GEOVANNA BUSBY DATE OF : 1930 DATE OF ADMISSION: 10/17/2017 15:42 (CDT) PHONE: AGE: 87 [facility]# [id number] GENDER: Female ENCOUNTER PHYSICIAN: Dr. Dave Webber M.D. ADMISSION DIAGNOSIS: - Orthopaedic Disorders 08 - Femur (Shaft) Fracture (08.2) Left Femoral Neck Fracture. EATING: Activity did not occur on this shift EATING - SCORE: 0-UNK GROOMING: Activity did not occur on this shift GROOMING - SCORE: 0-UNK BATHING: Activity did not occur on this shift BATHING - SCORE: 0-UNK DRESSING - UPPER BODY: Activity did not occur on this shift ARTICLES SCORE Total number of steps: 0 DRESSING - UPPER BODY - SCORE: 0-UNK DRESSING - LOWER BODY: Activity did not occur on this shift ARTICLES SCORE Total number of steps: 0 DRESSING - LOWER BODY - SCORE: 0-UNK TOILETING: TOILETING - STEP 1: Does the patient require assistance with toileting? Yes. TOILETING - STEP 2: Does the patient require the assistance of a helper? Yes. TOILETING - STEP 3: How much assistance does the patient require from the helper? Hands-on assistance from the helper TOILETING - STEP 4: Of the 3 tasks: 1) Adjusting clothing prior to use, 2) Cleansing of perineal area, 3) Adjusting clot nolberto after use; How many tasks does the patient perform WITHOUT assistance of the helper? Three tasks with steadying assistance from the helper TOILETING - SCORE: 4-MIN BLADDER MANAGEMENT: BLADDER MANAGEMENT - STEP 1: Does the patient control the bladder completely and intentionally without equipment or devices or med ications, and is always continent? No. BLADDER MANAGEMENT - STEP 2: Does the patient require the assistance of a helper? Yes. BLADDER MANAGEMENT - STEP 3: How much assistance does the patient require from the helper? Only set-up of equipment - such as plac ing it within reach of the patient or emptying a device - to maintain either satisfactory voiding pat tern or managing an external device, such as an absorbent pad, ileal device, or catheter BLADDER MANAGEMENT - SCORE: 5-SUP BLADDER MANAGEMENT - FREQUENCY OF ACCIDENTS: BLADDER MANAGEMENT(FA) - STEP 1: How many accidents has the patient had during the current shift? 0 BOWEL MANAGEMENT: Activity did not occur on this shift BOWEL MANAGEMENT - SCORE: 7-IND BOWEL MANAGEMENT - FREQUENCY OF ACCIDENTS: BOWEL MANAGEMENT(FA) - STEP 1: How many accidents has the patient had during the current shift? 0 TRANSFERS: BED, CHAIR, WHEELCHAIR: TRANSFERS: BED, CHAIR, WHEELCHAIR - STEP 1: Does the patient require assistance with bed, chair, or wheelchair transfers? Yes. TRANSFERS: BED, CHAIR, WHEELCHAIR - STEP 2: Does the patient require the assistance of a helper? Yes. TRANSFERS: BED, CHAIR, WHEELCHAIR - STEP 3: How much assistance does the patient require from the helper? Lifting of the legs TRANSFERS: BED, CHAIR, WHEELCHAIR - STEP 4: How many legs does the patient require the helper to lift? one leg TRANSFERS: BED, CHAIR, WHEELCHAIR - SCORE: 4-MIN TRANSFERS: TOILET: TRANSFERS: TOILET - STEP 1: Does the patient require assistance with toilet transfers? Yes. TRANSFERS: TOILET - STEP 2: Does the patient require the assistance of a helper? Yes. TRANSFERS: TOILET - STEP 3: How much assistance does the patient require from the helper? Patient performs half or more of the tr ansferring tasks TRANSFERS: TOILET - STEP 4: Does the patient need only incidental help such as contact guard or steadying during toilet transfer? Yes. TRANSFERS: TOILET - SCORE: 4-MIN TRANSFERS: SHOWER: Activity did not occur on this shift TRANSFERS: SHOWER - SCORE: 0-UNK TRANSFERS: TUB: Activity did not occur on this shift TRANSFERS: TUB - SCORE: 0-UNK LOCOMOTION: WALK: Activity did not occur on this shift LOCOMOTION: WALK - SCORE: 0-UNK LOCOMOTION: WHEELCHAIR: Activity did not occur on this shift LOCOMOTION: WHEELCHAIR - SCORE: 0-UNK COMPREHENSION: COMPREHENSION: TYPE: Both COMPREHENSION - STEP 1: Does the patient require help to understand complex and abstract ideas (such as current events, finan joseph, discharge planning, medical issues, relationships, etc)? No. COMPREHENSION - STEP 2: Does the patient need extra time, require an assistive device (such as glasses, hearing aids, or an a ugmentative communication system), OR does s/he have mild difficulty expressing complex and abstract ideas (including mild dysarthria or mild word-finding problems)? Yes. COMPREHENSION - SCORE: 6-EDIN EXPRESSION EXPRESSION: TYPE: Both EXPRESSION - STEP 1: Does the patient require help expressing complex and abstract ideas (such as current events, finances , discharge planning, medical issues, relationships, etc)? No. EXPRESSION - STEP 2: Does the patient need extra time, require an assistive device (such as augmentive communication syste m or a communication board), OR does s/he have mild difficulty expressing complex and abstract ideas (including mild dysarthria or mild word-find problems)? Yes. EXPRESSION - SCORE: 6-EDIN SOCIAL INTERACTION: SOCIAL INTERACTION - STEP 1: Does the patient require a helper to interact with others in social and therapeutic situations? No. SOCIAL INTERACTION - STEP 2: Does the patient need extra time in social situations, OR does s/he interact with staff, other patien ts, and family members ONLY in structured environments, OR does s/he require medication for social in teraction? Yes, patient needs extra time SOCIAL INTERACTION - SCORE: 6-EDIN PROBLEM SOLVING: PROBLEM SOLVING - STEP 1: Does the patient need help to solve complex problems such as managing a checking account or confronti ng interpersonal problems? Yes. PROBLEM SOLVING - STEP 2: Does the patient solve basic routine problems half or more of the time? Yes. PROBLEM SOLVING - STEP 3: How often does the patient need help to solve basic routine problems? Less than 10% of the time PROBLEM SOLVING - SCORE: 5-SUP MEMORY: MEMORY - STEP 1: Does the patient need help to remember frequently encountered people, daily routines, and executing r equests? No. MEMORY - STEP 2: Does the patient have slight difficulty recognizing frequently encountered people, daily routines, or executing requests without the need for repetition or using self-initiated or environmental cues to remember? Yes. MEMORY - SCORE: 6-EDIN SIGNATURE PANEL: The following modified sections: Eating - Score, Grooming - Score, Bathing - Score, Dressing - Upper Body - Score, Dressing - Lower Body - Score, Toileting - Score, Bladder Management - Score, Bowel Man agement - Score, Transfers: Bed, Chair, Wheelchair - Score, Transfers: Toilet - Score, Transfers: Karin wer - Score, Transfers: Tub - Score, Locomotion: Walk - Score, Locomotion: Wheelchair - Score, Compre hension - Score, Expression - Score, Social Interaction - Score, Problem Solving - Score, Memory - Sc ore were [electronically] signed by Kathya Taylor RN on TueOct 21 2017 02:44:07 T-0500 (Centra l Daylight Time)
[2017-10-21] MEDS: LEVOTHYROXINE SOD 0.1 MG TAB PO SCH (05:29)
[2017-10-21] MEDS: HYDROCODONE/APAP 7.5/325 MG TAB PO PRN (07:09)
[2017-10-21] MEDS: FERROUS SULFATE 325 MG TAB PO SCH ×2 (08:10→20:16)
[2017-10-21] MEDS: GLIMEPIRIDE 2 MG TABLET PO SCH ×2 (08:10→16:37)
[2017-10-21] MEDS: GABAPENTIN 300 MG CAP PO SCH ×3 (08:11→20:16)
[2017-10-21] MEDS: LISINOPRIL 20 MG TAB PO SCH (08:11)
[2017-10-21] MEDS: FLUTICASONE (FLONASE) 50MCG NASAL SPRAY NAS SCH ×2 (08:13→20:17)
[2017-10-21] MEDS: PROMOD 30 ML DOSE PO SCH ×2 (08:13→20:17)
--- NOTE | 2017-10-21 10:07 | P.RH.PN ---
Estimated Length of Stay: 11 Expected Discharge Date: 10/27/17 Discharge Disposition Plan: Home Family Support: Yes Correction Goal: Mobility, Transfers, Self Care Vital Signs: Last Vital Signs Temp 97.8 F 10/21/17 07:20 Pulse 81 10/21/17 08:11 Resp 16 10/21/17 07:20 BP 144/61 H 10/21/17 08:11 Pulse Ox 92 10/21/17 07:20 Laboratory: Laboratory Last Values WBC 4.2 K/uL (4.3-10.9) L D 10/20/17 06:06 RBC 3.07 M/uL (3.86-4.86) L 10/20/17 06:06 Hgb 9.3 g/dL (12.0-15.0) L 10/20/17 06:06 Hct 27.4 % (36.0-45.0) L 10/20/17 06:06 MCV 89.2 fL (80-100) 10/20/17 06:06 MCH 30.5 pg (27.0-35.0) 10/20/17 06:06 MCHC 34.2 g/dL (32.0-36.0) 10/20/17 06:06 RDW 13.0 % (12.1-15.2) 10/20/17 06:06 Plt Count 344 K/uL (152-406) 10/20/17 06:06 MPV 8.1 fL (7.6-11.3) 10/20/17 06:06 Neutrophils % 43.2 % (41.7-73.7) 10/20/17 06:06 Lymphocytes % 39.7 % (15.3-44.8) 10/20/17 06:06 Monocytes % 13.1 % (3.3-12.3) H 10/20/17 06:06 Eosinophils % 3.4 % (0-4.4) 10/20/17 06:06 Basophils % 0.6 % (0-1.3) 10/20/17 06:06 Absolute Neutrophils 1.8 K/uL (1.8-8.0) 10/20/17 06:06 Absolute Lymphocytes 1.7 K/uL (0.7-4.9) 10/20/17 06:06 Absolute Monocytes 0.6 K/uL (0.1-1.3) 10/20/17 06:06 Absolute Eosinophils 0.1 K/uL (0-0.5) 10/20/17 06:06 Absolute Basophils 0.0 K/uL (0-0.5) 10/20/17 06:06 Sodium 140 mEq/L (135-145) 10/20/17 06:06 Potassium 4.3 mEq/L (3.6-5.0) 10/20/17 06:06 Chloride 105 mEq/L (101-111) 10/20/17 06:06 Carbon Dioxide 30 mEq/L (21-31) 10/20/17 06:06 BUN 14 mg/dL (6-20) 10/20/17 06:06 Creatinine 0.79 mg/dL (0.44-1.00) 10/20/17 06:06 Estimated GFR 69 mL/min (=/>90) L 10/20/17 06:06 Glucose 95 mg/dL (65-120) 10/20/17 06:06 POC Glucose 92 mg/dl (65-120) 10/21/17 07:19 Calcium 8.6 mg/dL (8.5-10.5) 10/20/17 06:06 Magnesium 1.9 mg/dL (1.8-2.5) 10/20/17 06:06 Albumin 2.5 g/dL (3.2-5.5) L 10/20/17 06:06 Prealbumin 13.2 mg/dl (18-38) L 10/20/17 06:06 Urine Color Yellow 10/19/17 03:15 Urine Appearance Clear 10/19/17 03:15 Urine pH 6.0 (5.0-7.0) 10/19/17 03:15 Ur Specific [place] 1.010 (1.005-1.030) 10/19/17 03:15 Urine Ketones Negative (NEG) 10/19/17 03:15 Urine Blood Negative (NEG) 10/19/17 03:15 Urine Nitrite Negative (NEG) 10/19/17 03:15 Urine Bilirubin Negative (NEG) 10/19/17 03:15 Urine Urobilinogen 0.2 mg/dL (0.2-1.0) 10/19/17 03:15 Ur Leukocyte Esterase Negative (NEG) 10/19/17 03:15 Urine RBC None seen /HPF (NONE SEEN) 10/19/17 03:15 Urine WBC <5 /HPF (<5) 10/19/17 03:15 Ur Squamous Epith Cells <5 /HPF (NONE SEEN) 10/19/17 03:15 Urine Bacteria <20 /HPF (<20) 10/19/17 03:15 Urine Culture Reflexed Not needed 10/19/17 03:15 Urine Glucose Negative (NEG) 10/19/17 03:15 Urine Total Protein Negative (NEG) 10/19/17 03:15 Weight: 155 lb 12.8 oz Wound Present: No Closed Surgical Incision Present: Yes Negative Pressure Wound Therapy Present: No Physician Update: She is doing well with physical and occupational therapy. She has mild swelling in the legs. She is on promod due to low prealbumin and will get YOCASTA hose bilaterally during the day. She had mildly low Hgb at 9.3, will add hemocyte plus. Functional Improvement: Patient has met all short-term goals at this time and is progressing well toward long-term goals. Patient presents w/ good overall safety awareness and attitude toward therapy. Speech Therapy Update: Initial evaluation completed yesterday, which indicated mild cognitive deficits in short term memory. Pt. is independently aware of safety needs, verbalizes hip precautions independently, demonstrates verbal problem solving within constraints of hip restricitons independently. Pt. is independently utilizing strategies to facilitate personal safety througout ADLs. No further speech therapy is required at this time and ST to discharge. Summary: Patient's care plan and fdc goals have been reviewed and revised as necessary. Please see the Rehabilitation Signature page for all necessary signatures.
--- NOTE | 2017-10-21 11:40 | FAST ---
SHIFT START DATE/TIME: 10/21/2017 07:00 (CDT) SHIFT END DATE/TIME: 10/21/2017 19:00 (CDT) NAME GEOVANNA BUSBY DATE OF : 1930 DATE OF ADMISSION: 10/17/2017 15:42 (CDT) PHONE: AGE: [address] [facility]# [id number] GENDER: Female ENCOUNTER PHYSICIAN: Dr. Dave Webber M.D. ADMISSION DIAGNOSIS: - Orthopaedic Disorders 08 - Femur (Shaft) Fracture (08.2) Left Femoral Neck Fracture. EATING: EATING - STEP 1: Does the patient require assistance when eating? No. EATING - SCORE: 7-IND GROOMING: Activity did not occur on this shift GROOMING - SCORE: 0-UNK BATHING: Activity did not occur on this shift BATHING - SCORE: 0-UNK DRESSING - UPPER BODY: Bra (three steps) T-shirt/pullover shirt (four steps) ARTICLES SCORE Total number of steps: 7 DRESSING - UPPER BODY - STEP 1: Does the patient require help when dressing above the waist? Yes. DRESSING - UPPER BODY - STEP 2: Does the patient require the assistance of a helper? Yes. DRESSING - UPPER BODY - STEP 3: Does the helper touch the patient while dressing? Yes. DRESSING - UPPER BODY - STEP 4: How many of the total steps does the patient complete on his/her own? 3 DRESSING - UPPER BODY - STEP 5: Does Patient require total assistance for dressing above the waist such as the helper holding clothin g and performing basically all the activities? No. DRESSING - UPPER BODY - SCORE: 2-MAX DRESSING - LOWER BODY: Elastic waist pants (three steps) Sock - Left foot (one step) Sock - Right foot (one step) ARTICLES SCORE Total number of steps: 5 DRESSING - LOWER BODY - STEP 1: Does the patient require help when dressing below the waist? Yes. DRESSING - LOWER BODY - STEP 2: Does the patient require the assistance of a helper? Yes. DRESSING - LOWER BODY - STEP 3: Does the helper touch the patient while dressing? Yes. DRESSING - LOWER BODY - STEP 4: How many of the total steps does the patient complete on his/her own? 2 DRESSING - LOWER BODY - STEP 5: Does patient require total assistance for dressing below the waist such as the helper holding clothin g and performing basically all the activities? No. DRESSING - LOWER BODY - SCORE: 2-MAX TOILETING: Activity did not occur on this shift TOILETING - SCORE: 0-UNK BLADDER MANAGEMENT: Activity did not occur on this shift BLADDER MANAGEMENT - SCORE: 7-IND BLADDER MANAGEMENT - FREQUENCY OF ACCIDENTS: BLADDER MANAGEMENT(FA) - STEP 1: How many accidents has the patient had during the current shift? 0 BOWEL MANAGEMENT: Activity did not occur on this shift BOWEL MANAGEMENT - SCORE: 7-IND BOWEL MANAGEMENT - FREQUENCY OF ACCIDENTS: BOWEL MANAGEMENT(FA) - STEP 1: How many accidents has the patient had during the current shift? 0 TRANSFERS: BED, CHAIR, WHEELCHAIR: TRANSFERS: BED, CHAIR, WHEELCHAIR - STEP 1: Does the patient require assistance with bed, chair, or wheelchair transfers? Yes. TRANSFERS: BED, CHAIR, WHEELCHAIR - STEP 2: Does the patient require the assistance of a helper? No. Patient only requires an assistive device fo r bed, chair, wheelchair transfers such as a sliding board, grab bar, or brace, OR s/he takes more th an reasonable time, OR there is a safety concern when s/he performs the transfers TRANSFERS: BED, CHAIR, WHEELCHAIR - SCORE: 6-EDIN TRANSFERS: TOILET: Activity did not occur on this shift TRANSFERS: TOILET - SCORE: 0-UNK TRANSFERS: SHOWER: Activity did not occur on this shift TRANSFERS: SHOWER - SCORE: 0-UNK TRANSFERS: TUB: Activity did not occur on this shift TRANSFERS: TUB - SCORE: 0-UNK LOCOMOTION: WALK: Activity did not occur on this shift LOCOMOTION: WALK - SCORE: 0-UNK LOCOMOTION: WHEELCHAIR: Activity did not occur on this shift LOCOMOTION: WHEELCHAIR - SCORE: 0-UNK COMPREHENSION: COMPREHENSION - SCORE: 0-UNK EXPRESSION EXPRESSION - SCORE: 0-UNK SOCIAL INTERACTION: SOCIAL INTERACTION - SCORE: 0-UNK PROBLEM SOLVING: PROBLEM SOLVING - SCORE: 0-UNK MEMORY: MEMORY - SCORE: 0-UNK SIGNATURE PANEL: The following modified sections: Eating - Score, Grooming - Score, Bathing - Score, Dressing - Upper Body - Score, Dressing - Lower Body - Score, Toileting - Score, Bladder Management - Score, Bowel Man agement - Score, Transfers: Bed, Chair, Wheelchair - Score, Transfers: Toilet - Score, Transfers: Karin wer - Score, Transfers: Tub - Score, Locomotion: Walk - Score, Locomotion: Wheelchair - Score, Compre hension - Score, Expression - Score, Social Interaction - Score, Problem Solving - Score, Memory - Sc ore were [electronically] signed by Donna Silverio CNA on TueOct 21 2017 10:40:06 GMT-0500 ([facility] [place] Daylight Time)
--- NOTE | 2017-10-21 15:51 | FAST ---
ENCOUNTER DATE AND TIME: 10/21/2017 08:00 (CDT) NAME GEOVANNA BUSBY DATE OF : 1930 DATE OF ADMISSION: 10/17/2017 15:42 (CDT) PHONE: AGE: 87 N# [id number] GENDER: Female ENCOUNTER PHYSICIAN: Dr. Dave Webber M.D. ADMISSION DIAGNOSIS: - Orthopaedic Disorders 08 - Femur (Shaft) Fracture (08.2) Left Femoral Neck Fracture. EATING: Activity did not occur on this shift EATING - SCORE: 0-UNK GROOMING: Activity did not occur on this shift GROOMING - SCORE: 0-UNK BATHING: Activity did not occur on this shift BATHING - SCORE: 0-UNK DRESSING - UPPER BODY: Activity did not occur on this shift Patient is not dressing in public clothing ARTICLES SCORE Total number of steps: 0 DRESSING - UPPER BODY - SCORE: 0-UNK DRESSING - LOWER BODY: Activity did not occur on this shift Patient is not dressing in public clothing ARTICLES SCORE Total number of steps: 0 DRESSING - LOWER BODY - SCORE: 0-UNK TOILETING: Activity did not occur on this shift TOILETING - SCORE: 0-UNK BLADDER MANAGEMENT: Activity did not occur on this shift BLADDER MANAGEMENT - SCORE: 7-IND BOWEL MANAGEMENT: Activity did not occur on this shift BOWEL MANAGEMENT - SCORE: 7-IND TRANSFERS: BED, CHAIR, WHEELCHAIR: TRANSFERS: BED, CHAIR, WHEELCHAIR - STEP 1: Does the patient require assistance with bed, chair, or wheelchair transfers? Yes. TRANSFERS: BED, CHAIR, WHEELCHAIR - STEP 2: Does the patient require the assistance of a helper? Yes. TRANSFERS: BED, CHAIR, WHEELCHAIR - STEP 3: How much assistance does the patient require from the helper? Only supervision TRANSFERS: BED, CHAIR, WHEELCHAIR - SCORE: 5-SUP TRANSFERS: TOILET: Activity did not occur on this shift TRANSFERS: TOILET - SCORE: 0-UNK TRANSFERS: SHOWER: Activity did not occur on this shift TRANSFERS: SHOWER - SCORE: 0-UNK TRANSFERS: TUB: Activity did not occur on this shift TRANSFERS: TUB - SCORE: 0-UNK LOCOMOTION: WALK: LOCOMOTION: WALK - STEP 1: Does the patient need help to walk 150 feet? Yes. LOCOMOTION: WALK - STEP 2: How much assistance does the patient require to walk a minimum of 150 feet? Only supervision, cuing, or coaxing LOCOMOTION: WALK - SCORE: 5-SUP LOCOMOTION: WHEELCHAIR: LOCOMOTION: WHEELCHAIR - STEP 1: Does the patient need help to go 150 feet in a wheelchair? Yes. LOCOMOTION: WHEELCHAIR - STEP 2: How much assistance does the patient need from the helper? Only supervision, cuing, or coaxing LOCOMOTION: WHEELCHAIR - SCORE: 5-SUP LOCOMOTION: STAIRS: LOCOMOTION: STAIRS - STEP 1: Does the patient need help to go up and down 12 to 14 stairs? Yes. LOCOMOTION: STAIRS - STEP 2: How much assistance does the patient need from the helper to go a minimum of 12 to 14 stairs? Only metz pervision, cuing, or coaxing LOCOMOTION: STAIRS - SCORE: 5-SUP COMPREHENSION: COMPREHENSION - SCORE: 0-UNK EXPRESSION EXPRESSION - SCORE: 0-UNK SOCIAL INTERACTION: SOCIAL INTERACTION - SCORE: 0-UNK PROBLEM SOLVING: PROBLEM SOLVING - SCORE: 0-UNK MEMORY: MEMORY - SCORE: 0-UNK SIGNATURE PANEL: The following modified sections: Transfers: Bed, Chair, Wheelchair - Score, Transfers: Toilet - Score , Locomotion: Walk - Score, Locomotion: Wheelchair - Score, Locomotion: Stairs - Score were [cesilia fish] signed by Live Johnson PTA on TueOct 21 2017 14:51:47 GMT-0500 (Central Daylight Time)
--- NOTE | 2017-10-21 16:08 | FAST ---
ENCOUNTER DATE AND TIME: 10/21/2017 08:00 (CDT) NAME GEOVANNA BUSBY DATE OF : 1930 DATE OF ADMISSION: 10/17/2017 15:42 (CDT) PHONE: AGE: 87 N# [id number] GENDER: Female ENCOUNTER PHYSICIAN: Dr. Dave Webber M.D. ADMISSION DIAGNOSIS: - Orthopaedic Disorders 08 - Femur (Shaft) Fracture (08.2) Left Femoral Neck Fracture. EATING: Activity did not occur on this shift EATING - SCORE: 0-UNK GROOMING: Comb/brush hair Wash, rinse, and dry face Wash, rinse, and dry hands GROOMING - STEP 1: Does the patient require assistance when grooming? No. GROOMING - SCORE: 7-IND BATHING: Abdomen Buttocks Chest Left arm Left lower leg and foot Left upper leg Perineal area Right arm Right lower leg and foot Right upper leg BATHING - STEP 1: Does the patient require assistance when bathing? Yes. BATHING - STEP 2: Does the patient require the assistance of a helper? Yes. BATHING - STEP 3: How much assistance does the patient require from the helper? Only supervision, cuing, coaxing, instr uctions, encouragement BATHING - SCORE: 5-SUP DRESSING - UPPER BODY: T-shirt/pullover shirt (four steps) ARTICLES SCORE Total number of steps: 4 DRESSING - UPPER BODY - STEP 1: Does the patient require help when dressing above the waist? No. DRESSING - UPPER BODY - SCORE: 7-IND DRESSING - LOWER BODY: Elastic waist pants (three steps) Slip-on shoe - Left foot (one step) Slip-on shoe - Right foot (one step) Underwear (three steps) ARTICLES SCORE Total number of steps: 8 DRESSING - LOWER BODY - STEP 1: Does the patient require help when dressing below the waist? Yes. DRESSING - LOWER BODY - STEP 2: Does the patient require the assistance of a helper? Yes. DRESSING - LOWER BODY - STEP 3: Does the helper touch the patient while dressing? Yes. DRESSING - LOWER BODY - STEP 4: How many of the total steps does the patient complete on his/her own? 6 DRESSING - LOWER BODY - SCORE: 4-MIN TOILETING: Activity did not occur on this shift TOILETING - SCORE: 0-UNK BLADDER MANAGEMENT: Activity did not occur on this shift BLADDER MANAGEMENT - SCORE: 7-IND BOWEL MANAGEMENT: Activity did not occur on this shift BOWEL MANAGEMENT - SCORE: 7-IND TRANSFERS: BED, CHAIR, WHEELCHAIR: Activity did not occur on this shift TRANSFERS: BED, CHAIR, WHEELCHAIR - SCORE: 0-UNK TRANSFERS: TOILET: Activity did not occur on this shift TRANSFERS: TOILET - SCORE: 0-UNK TRANSFERS: SHOWER: TRANSFERS: SHOWER - STEP 1: Does the patient require assistance with shower transfers? Yes. TRANSFERS: SHOWER - STEP 2: Does the patient require the assistance of a helper? Yes. TRANSFERS: SHOWER - STEP 3: How much assistance does the patient require from the helper? Only supervision, cuing, coaxing, or he lp to set out transfer equipment or to lock brakes and/or lift foot rests TRANSFERS: SHOWER - SCORE: 5-SUP TRANSFERS: TUB: Activity did not occur on this shift TRANSFERS: TUB - SCORE: 0-UNK LOCOMOTION: WALK: Activity did not occur on this shift LOCOMOTION: WALK - SCORE: 0-UNK LOCOMOTION: WHEELCHAIR: Activity did not occur on this shift LOCOMOTION: WHEELCHAIR - SCORE: 0-UNK LOCOMOTION: STAIRS: Activity did not occur on this shift LOCOMOTION: STAIRS - SCORE: 0-UNK COMPREHENSION: COMPREHENSION: TYPE: Visual COMPREHENSION - STEP 1: Does the patient require help to understand complex and abstract ideas (such as current events, finan joseph, discharge planning, medical issues, relationships, etc)? No. COMPREHENSION - STEP 2: Does the patient need extra time, require an assistive device (such as glasses, hearing aids, or an a ugmentative communication system), OR does s/he have mild difficulty expressing complex and abstract ideas (including mild dysarthria or mild word-finding problems)? Yes. COMPREHENSION - SCORE: 6-EDIN EXPRESSION EXPRESSION: TYPE: Non-Vocal EXPRESSION - STEP 1: Does the patient require help expressing complex and abstract ideas (such as current events, finances , discharge planning, medical issues, relationships, etc)? No. EXPRESSION - STEP 2: Does the patient need extra time, require an assistive device (such as augmentive communication syste m or a communication board), OR does s/he have mild difficulty expressing complex and abstract ideas (including mild dysarthria or mild word-find problems)? No. EXPRESSION - SCORE: 7-IND SOCIAL INTERACTION: SOCIAL INTERACTION - STEP 1: Does the patient require a helper to interact with others in social and therapeutic situations? No. SOCIAL INTERACTION - STEP 2: Does the patient need extra time in social situations, OR does s/he interact with staff, other patien ts, and family members ONLY in structured environments, OR does s/he require medication for social in teraction? No. SOCIAL INTERACTION - SCORE: 7-IND PROBLEM SOLVING: PROBLEM SOLVING - STEP 1: Does the patient need help to solve complex problems such as managing a checking account or confronti ng interpersonal problems? No. PROBLEM SOLVING - STEP 2: Does the patient require extra time to make decisions or solve problems, OR does s/he have slight dif ficulty reading, initiating, or self-correcting in unfamiliar situations? Yes, patient needs extra ti me. PROBLEM SOLVING - SCORE: 6-EDIN MEMORY: MEMORY - STEP 1: Does the patient need help to remember frequently encountered people, daily routines, and executing r equests? No. MEMORY - STEP 2: Does the patient have slight difficulty recognizing frequently encountered people, daily routines, or executing requests without the need for repetition or using self-initiated or environmental cues to remember? Yes. MEMORY - SCORE: 6-EDIN SIGNATURE PANEL: The following modified sections: Eating - Score, Grooming - Score, Bathing - Score, Dressing - Upper Body - Score, Dressing - Lower Body - Score, Toileting - Score, Transfers: Bed, Chair, Wheelchair - S core, Transfers: Toilet - Score, Transfers: Shower - Score, Transfers: Tub - Score, Comprehension - S core, Expression - Score, Social Interaction - Score, Problem Solving - Score, Memory - Score were [e lectronically] signed by JOVANA Addison on TueOct 21 2017 15:08:49 T-0500 ([facility] Time)
[2017-10-21] MEDS: ENOXAPARIN 40 MG/0.4 ML SQ SCH (16:37)
[2017-10-21] MEDS: DOCUSATE NA/SENNA CONC 1 TAB PO PRN (20:17)
[2017-10-21] MEDS: LORAZEPAM 0.5 MG TABLET PO PRN (20:17)
--- NOTE | 2017-10-22 03:21 | FAST ---
SHIFT START DATE/TIME: 10/21/2017 19:00 (CDT) SHIFT END DATE/TIME: 10/22/2017 07:00 (CDT) NAME GEOVANNA BUSBY DATE OF : 1930 DATE OF ADMISSION: 10/17/2017 15:42 (CDT) PHONE: AGE: 87 [facility]# [id number] GENDER: Female ENCOUNTER PHYSICIAN: Dr. Dave Webber M.D. ADMISSION DIAGNOSIS: - Orthopaedic Disorders 08 - Femur (Shaft) Fracture (08.2) Left Femoral Neck Fracture. EATING: Activity did not occur on this shift EATING - SCORE: 0-UNK GROOMING: Oral care Wash, rinse, and dry face Wash, rinse, and dry hands GROOMING - STEP 1: Does the patient require assistance when grooming? Yes. GROOMING - STEP 2: Does the patient require the assistance of a helper? Yes. GROOMING - STEP 3: How much assistance does the patient require from the helper? Cuing, coaxing, instructions, or encour agement for completion of grooming GROOMING - SCORE: 5-SUP BATHING: Activity did not occur on this shift BATHING - SCORE: 0-UNK DRESSING - UPPER BODY: Patient is not dressing in public clothing ARTICLES SCORE Total number of steps: 0 DRESSING - UPPER BODY - SCORE: 0-UNK DRESSING - LOWER BODY: Patient is not dressing in public clothing ARTICLES SCORE Total number of steps: 0 DRESSING - LOWER BODY - SCORE: 0-UNK TOILETING: TOILETING - STEP 1: Does the patient require assistance with toileting? Yes. TOILETING - STEP 2: Does the patient require the assistance of a helper? Yes. TOILETING - STEP 3: How much assistance does the patient require from the helper? Only supervision TOILETING - SCORE: 5-SUP BLADDER MANAGEMENT: BLADDER MANAGEMENT - STEP 1: Does the patient control the bladder completely and intentionally without equipment or devices or med ications, and is always continent? No. BLADDER MANAGEMENT - STEP 2: Does the patient require the assistance of a helper? Yes. BLADDER MANAGEMENT - STEP 3: How much assistance does the patient require from the helper? Only supervision, stand-by, cuing, or c oaxing BLADDER MANAGEMENT - SCORE: 5-SUP BOWEL MANAGEMENT: Activity did not occur on this shift BOWEL MANAGEMENT - SCORE: 7-IND TRANSFERS: BED, CHAIR, WHEELCHAIR: TRANSFERS: BED, CHAIR, WHEELCHAIR - STEP 1: Does the patient require assistance with bed, chair, or wheelchair transfers? Yes. TRANSFERS: BED, CHAIR, WHEELCHAIR - STEP 2: Does the patient require the assistance of a helper? Yes. TRANSFERS: BED, CHAIR, WHEELCHAIR - STEP 3: How much assistance does the patient require from the helper? Steadying/guiding assistance TRANSFERS: BED, CHAIR, WHEELCHAIR - SCORE: 4-MIN TRANSFERS: TOILET: TRANSFERS: TOILET - STEP 1: Does the patient require assistance with toilet transfers? Yes. TRANSFERS: TOILET - STEP 2: Does the patient require the assistance of a helper? Yes. TRANSFERS: TOILET - STEP 3: How much assistance does the patient require from the helper? Only supervision, cuing, coaxing, OR he lp to set out transfer equipment or to lock brakes and/or lift foot rests TRANSFERS: TOILET - SCORE: 5-SUP TRANSFERS: SHOWER: Activity did not occur on this shift TRANSFERS: SHOWER - SCORE: 0-UNK TRANSFERS: TUB: Activity did not occur on this shift TRANSFERS: TUB - SCORE: 0-UNK LOCOMOTION: WALK: Activity did not occur on this shift LOCOMOTION: WALK - SCORE: 0-UNK LOCOMOTION: WHEELCHAIR: Activity did not occur on this shift LOCOMOTION: WHEELCHAIR - SCORE: 0-UNK COMPREHENSION: COMPREHENSION: TYPE: Both COMPREHENSION - STEP 1: Does the patient require help to understand complex and abstract ideas (such as current events, finan joseph, discharge planning, medical issues, relationships, etc)? No. COMPREHENSION - STEP 2: Does the patient need extra time, require an assistive device (such as glasses, hearing aids, or an a ugmentative communication system), OR does s/he have mild difficulty expressing complex and abstract ideas (including mild dysarthria or mild word-finding problems)? Yes. COMPREHENSION - SCORE: 6-EDIN EXPRESSION EXPRESSION: TYPE: Both EXPRESSION - STEP 1: Does the patient require help expressing complex and abstract ideas (such as current events, finances , discharge planning, medical issues, relationships, etc)? No. EXPRESSION - STEP 2: Does the patient need extra time, require an assistive device (such as augmentive communication syste m or a communication board), OR does s/he have mild difficulty expressing complex and abstract ideas (including mild dysarthria or mild word-find problems)? Yes. EXPRESSION - SCORE: 6-EDIN SOCIAL INTERACTION: SOCIAL INTERACTION - STEP 1: Does the patient require a helper to interact with others in social and therapeutic situations? No. SOCIAL INTERACTION - STEP 2: Does the patient need extra time in social situations, OR does s/he interact with staff, other patien ts, and family members ONLY in structured environments, OR does s/he require medication for social in teraction? Yes, patient requires medication for social interaction SOCIAL INTERACTION - SCORE: 6-EDIN PROBLEM SOLVING: PROBLEM SOLVING - STEP 1: Does the patient need help to solve complex problems such as managing a checking account or confronti ng interpersonal problems? No. PROBLEM SOLVING - STEP 2: Does the patient require extra time to make decisions or solve problems, OR does s/he have slight dif ficulty reading, initiating, or self-correcting in unfamiliar situations? Yes, patient needs extra ti me. PROBLEM SOLVING - SCORE: 6-EDIN MEMORY: MEMORY - STEP 1: Does the patient need help to remember frequently encountered people, daily routines, and executing r equests? No. MEMORY - STEP 2: Does the patient have slight difficulty recognizing frequently encountered people, daily routines, or executing requests without the need for repetition or using self-initiated or environmental cues to remember? Yes. MEMORY - SCORE: 6-EDIN
[2017-10-22] MEDS: TRAMADOL HCL 50 MG TAB PO PRN (04:40)
[2017-10-22] MEDS: LEVOTHYROXINE SOD 0.1 MG TAB PO SCH (05:12)
[2017-10-22] MEDS: HYDROCODONE/APAP 7.5/325 MG TAB PO PRN ×2 (06:58→19:43)
[2017-10-22] MEDS: FLUTICASONE (FLONASE) 50MCG NASAL SPRAY NAS SCH ×2 (08:14→19:43)
[2017-10-22] MEDS: FERROUS SULFATE 325 MG TAB PO SCH ×2 (08:15→19:43)
[2017-10-22] MEDS: BENZONATATE 100 MG CAP PO PRN (08:15)
[2017-10-22] MEDS: GLIMEPIRIDE 2 MG TABLET PO SCH ×2 (08:15→16:50)
[2017-10-22] MEDS: GABAPENTIN 300 MG CAP PO SCH ×3 (08:15→20:12)
[2017-10-22] MEDS: LISINOPRIL 20 MG TAB PO SCH (08:15)
[2017-10-22] MEDS: PROMOD 30 ML DOSE PO SCH ×2 (08:16→19:42)
--- NOTE | 2017-10-22 15:48 | FAST ---
ENCOUNTER DATE AND TIME: 10/22/2017 08:00 (CDT) NAME GEOVANNA BUSBY DATE OF : 1930 DATE OF ADMISSION: 10/17/2017 15:42 (CDT) PHONE: AGE: 87 N# [id number] GENDER: Female ENCOUNTER PHYSICIAN: Dr. Dave Webber M.D. ADMISSION DIAGNOSIS: - Orthopaedic Disorders 08 - Femur (Shaft) Fracture (08.2) Left Femoral Neck Fracture. EATING: Activity did not occur on this shift EATING - SCORE: 0-UNK GROOMING: Activity did not occur on this shift GROOMING - SCORE: 0-UNK BATHING: Activity did not occur on this shift BATHING - SCORE: 0-UNK DRESSING - UPPER BODY: Activity did not occur on this shift Patient is not dressing in public clothing ARTICLES SCORE Total number of steps: 0 DRESSING - UPPER BODY - SCORE: 0-UNK DRESSING - LOWER BODY: Activity did not occur on this shift Patient is not dressing in public clothing ARTICLES SCORE Total number of steps: 0 DRESSING - LOWER BODY - SCORE: 0-UNK TOILETING: Activity did not occur on this shift TOILETING - SCORE: 0-UNK BLADDER MANAGEMENT: Activity did not occur on this shift BLADDER MANAGEMENT - SCORE: 7-IND BOWEL MANAGEMENT: Activity did not occur on this shift BOWEL MANAGEMENT - SCORE: 7-IND TRANSFERS: BED, CHAIR, WHEELCHAIR: TRANSFERS: BED, CHAIR, WHEELCHAIR - STEP 1: Does the patient require assistance with bed, chair, or wheelchair transfers? Yes. TRANSFERS: BED, CHAIR, WHEELCHAIR - STEP 2: Does the patient require the assistance of a helper? Yes. TRANSFERS: BED, CHAIR, WHEELCHAIR - STEP 3: How much assistance does the patient require from the helper? Only supervision TRANSFERS: BED, CHAIR, WHEELCHAIR - SCORE: 5-SUP TRANSFERS: TOILET: TRANSFERS: TOILET - STEP 1: Does the patient require assistance with toilet transfers? Yes. TRANSFERS: TOILET - STEP 2: Does the patient require the assistance of a helper? Yes. TRANSFERS: TOILET - STEP 3: How much assistance does the patient require from the helper? Only supervision, cuing, coaxing, OR he lp to set out transfer equipment or to lock brakes and/or lift foot rests TRANSFERS: TOILET - SCORE: 5-SUP TRANSFERS: SHOWER: Activity did not occur on this shift TRANSFERS: SHOWER - SCORE: 0-UNK TRANSFERS: TUB: Activity did not occur on this shift TRANSFERS: TUB - SCORE: 0-UNK LOCOMOTION: WALK: LOCOMOTION: WALK - STEP 1: Does the patient need help to walk 150 feet? Yes. LOCOMOTION: WALK - STEP 2: How much assistance does the patient require to walk a minimum of 150 feet? Only supervision, cuing, or coaxing LOCOMOTION: WALK - SCORE: 5-SUP LOCOMOTION: WHEELCHAIR: Activity did not occur on this shift LOCOMOTION: WHEELCHAIR - SCORE: 0-UNK LOCOMOTION: STAIRS: Activity did not occur on this shift LOCOMOTION: STAIRS - SCORE: 0-UNK COMPREHENSION: COMPREHENSION - SCORE: 0-UNK EXPRESSION EXPRESSION - SCORE: 0-UNK SOCIAL INTERACTION: SOCIAL INTERACTION - SCORE: 0-UNK PROBLEM SOLVING: PROBLEM SOLVING - SCORE: 0-UNK MEMORY: MEMORY - SCORE: 0-UNK SIGNATURE PANEL: The following modified sections: Transfers: Bed, Chair, Wheelchair - Score, Transfers: Toilet - Score , Locomotion: Walk - Score, Locomotion: Wheelchair - Score, Locomotion: Stairs - Score were [electron polina] signed by Anna Méndez PTA on Sat Oct 22 2017 14:48:16 T-0500 (Central Daylight Time)
[2017-10-22] MEDS: ENOXAPARIN 40 MG/0.4 ML SQ SCH (16:48)
--- NOTE | 2017-10-22 17:12 | FAST ---
SHIFT START DATE/TIME: 10/22/2017 07:00 (CDT) SHIFT END DATE/TIME: 10/22/2017 19:00 (CDT) NAME GEOVANNA BUSBY DATE OF : 1930 DATE OF ADMISSION: 10/17/2017 15:42 (CDT) PHONE: AGE: 87 [facility]# [id number] GENDER: Female ENCOUNTER PHYSICIAN: Dr. Dave Webber M.D. ADMISSION DIAGNOSIS: - Orthopaedic Disorders 08 - Femur (Shaft) Fracture (08.2) Left Femoral Neck Fracture. EATING: EATING - STEP 1: Does the patient require assistance when eating? Yes. EATING - STEP 2: Does the patient require the assistance of a helper? No, patient only requires an assistive device, O R s/he takes more than reasonable time to eat, OR there is a safety concern, OR s/he requires modifie d food consistency EATING - SCORE: 6-EDIN GROOMING: Activity did not occur on this shift GROOMING - SCORE: 0-UNK BATHING: Activity did not occur on this shift BATHING - SCORE: 0-UNK DRESSING - UPPER BODY: T-shirt/pullover shirt (four steps) ARTICLES SCORE Total number of steps: 4 DRESSING - UPPER BODY - STEP 1: Does the patient require help when dressing above the waist? Yes. DRESSING - UPPER BODY - STEP 2: Does the patient require the assistance of a helper? Yes. DRESSING - UPPER BODY - STEP 3: Does the helper touch the patient while dressing? No. DRESSING - UPPER BODY - SCORE: 5-SUP DRESSING - LOWER BODY: Elastic waist pants (three steps) ARTICLES SCORE Total number of steps: 3 DRESSING - LOWER BODY - STEP 1: Does the patient require help when dressing below the waist? Yes. DRESSING - LOWER BODY - STEP 2: Does the patient require the assistance of a helper? Yes. DRESSING - LOWER BODY - STEP 3: Does the helper touch the patient while dressing? No. DRESSING - LOWER BODY - SCORE: 5-SUP TOILETING: TOILETING - STEP 1: Does the patient require assistance with toileting? Yes. TOILETING - STEP 2: Does the patient require the assistance of a helper? Yes. TOILETING - STEP 3: How much assistance does the patient require from the helper? Hands-on assistance from the helper TOILETING - STEP 4: Of the 3 tasks: 1) Adjusting clothing prior to use, 2) Cleansing of perineal area, 3) Adjusting clot nolberto after use; How many tasks does the patient perform WITHOUT assistance of the helper? Three tasks with steadying assistance from the helper TOILETING - SCORE: 4-MIN BLADDER MANAGEMENT: BLADDER MANAGEMENT - STEP 1: Does the patient control the bladder completely and intentionally without equipment or devices or med ications, and is always continent? No. BLADDER MANAGEMENT - STEP 2: Does the patient require the assistance of a helper? No, patient requires and independently uses an a ssistive device, such as a urinal, bedpan, bedside commode, catheter, absorbent pad, or collecting de vice BLADDER MANAGEMENT - SCORE: 6-EDIN BOWEL MANAGEMENT: Activity did not occur on this shift BOWEL MANAGEMENT - SCORE: 7-IND TRANSFERS: BED, CHAIR, WHEELCHAIR: TRANSFERS: BED, CHAIR, WHEELCHAIR - STEP 1: Does the patient require assistance with bed, chair, or wheelchair transfers? Yes. TRANSFERS: BED, CHAIR, WHEELCHAIR - STEP 2: Does the patient require the assistance of a helper? Yes. TRANSFERS: BED, CHAIR, WHEELCHAIR - STEP 3: How much assistance does the patient require from the helper? Steadying/guiding assistance TRANSFERS: BED, CHAIR, WHEELCHAIR - SCORE: 4-MIN TRANSFERS: TOILET: TRANSFERS: TOILET - STEP 1: Does the patient require assistance with toilet transfers? Yes. TRANSFERS: TOILET - STEP 2: Does the patient require the assistance of a helper? Yes. TRANSFERS: TOILET - STEP 3: How much assistance does the patient require from the helper? Patient performs half or more of the tr ansferring tasks TRANSFERS: TOILET - STEP 4: Does the patient need only incidental help such as contact guard or steadying during toilet transfer? Yes. TRANSFERS: TOILET - SCORE: 4-MIN TRANSFERS: SHOWER: Activity did not occur on this shift TRANSFERS: SHOWER - SCORE: 0-UNK TRANSFERS: TUB: Activity did not occur on this shift TRANSFERS: TUB - SCORE: 0-UNK LOCOMOTION: WALK: Activity did not occur on this shift LOCOMOTION: WALK - SCORE: 0-UNK LOCOMOTION: WHEELCHAIR: Activity did not occur on this shift LOCOMOTION: WHEELCHAIR - SCORE: 0-UNK COMPREHENSION: COMPREHENSION - SCORE: 0-UNK EXPRESSION EXPRESSION - SCORE: 0-UNK SOCIAL INTERACTION: SOCIAL INTERACTION - SCORE: 0-UNK PROBLEM SOLVING: PROBLEM SOLVING - SCORE: 0-UNK MEMORY: MEMORY - SCORE: 0-UNK SIGNATURE PANEL: The following modified sections: Eating - Score, Grooming - Score, Bathing - Score, Dressing - Upper Body - Score, Dressing - Lower Body - Score, Toileting - Score, Bladder Management - Score, Bowel Man agement - Score, Transfers: Bed, Chair, Wheelchair - Score, Transfers: Toilet - Score, Transfers: Karin wer - Score, Transfers: Tub - Score, Locomotion: Walk - Score, Locomotion: Wheelchair - Score, Compre hension - Score, Expression - Score, Social Interaction - Score, Problem Solving - Score, Memory - Sc ore were [electronically] signed by Kash Carrillo on Sat Oct 22 2017 16:13:13 GMT-0500 (Central Daylight Time)
[2017-10-22] MEDS: CRANBERRY FRUIT EXTRACT 200 MG CAP PO SCH (19:43)
[2017-10-22] MEDS: LORAZEPAM 0.5 MG TABLET PO PRN (19:44)
--- NOTE | 2017-10-23 02:41 | FAST ---
SHIFT START DATE/TIME: 10/22/2017 19:00 (CDT) SHIFT END DATE/TIME: 10/23/2017 07:00 (CDT) NAME GEOVANNA BUSBY DATE OF : 1930 DATE OF ADMISSION: 10/17/2017 15:42 (CDT) PHONE: AGE: 87 [facility]# [id number] GENDER: Female ENCOUNTER PHYSICIAN: Dr. Dave Webber M.D. ADMISSION DIAGNOSIS: - Orthopaedic Disorders 08 - Femur (Shaft) Fracture (08.2) Left Femoral Neck Fracture. EATING: Activity did not occur on this shift EATING - SCORE: 0-UNK GROOMING: Wash, rinse, and dry hands GROOMING - STEP 1: Does the patient require assistance when grooming? Yes. GROOMING - STEP 2: Does the patient require the assistance of a helper? Yes. GROOMING - STEP 3: How much assistance does the patient require from the helper? Steadying assistance from the helper GROOMING - SCORE: 4-MIN BATHING: Activity did not occur on this shift BATHING - SCORE: 0-UNK DRESSING - UPPER BODY: Patient is not dressing in public clothing ARTICLES SCORE Total number of steps: 0 DRESSING - UPPER BODY - SCORE: 0-UNK DRESSING - LOWER BODY: Patient is not dressing in public clothing ARTICLES SCORE Total number of steps: 0 DRESSING - LOWER BODY - SCORE: 0-UNK TOILETING: TOILETING - STEP 1: Does the patient require assistance with toileting? Yes. TOILETING - STEP 2: Does the patient require the assistance of a helper? Yes. TOILETING - STEP 3: How much assistance does the patient require from the helper? Hands-on assistance from the helper TOILETING - STEP 4: Of the 3 tasks: 1) Adjusting clothing prior to use, 2) Cleansing of perineal area, 3) Adjusting clot nolberto after use; How many tasks does the patient perform WITHOUT assistance of the helper? Three tasks with steadying assistance from the helper TOILETING - SCORE: 4-MIN BLADDER MANAGEMENT: BLADDER MANAGEMENT - STEP 1: Does the patient control the bladder completely and intentionally without equipment or devices or med ications, and is always continent? No. BLADDER MANAGEMENT - STEP 2: Does the patient require the assistance of a helper? Yes. BLADDER MANAGEMENT - STEP 3: How much assistance does the patient require from the helper? Patient requires contact assistance fro m the helper BLADDER MANAGEMENT - STEP 4: How much contact assistance does the patient require from the helper? Patient requires minimal assist ance to maintain an external device - by positioning, and the patient performs 75% or more of bladder management tasks, while the helper provides less than 25% of the assistance to position patient on / off bedpan BLADDER MANAGEMENT - SCORE: 4-MIN BOWEL MANAGEMENT: Activity did not occur on this shift BOWEL MANAGEMENT - SCORE: 7-IND TRANSFERS: BED, CHAIR, WHEELCHAIR: TRANSFERS: BED, CHAIR, WHEELCHAIR - STEP 1: Does the patient require assistance with bed, chair, or wheelchair transfers? Yes. TRANSFERS: BED, CHAIR, WHEELCHAIR - STEP 2: Does the patient require the assistance of a helper? Yes. TRANSFERS: BED, CHAIR, WHEELCHAIR - STEP 3: How much assistance does the patient require from the helper? Steadying/guiding assistance TRANSFERS: BED, CHAIR, WHEELCHAIR - SCORE: 4-MIN TRANSFERS: TOILET: TRANSFERS: TOILET - STEP 1: Does the patient require assistance with toilet transfers? Yes. TRANSFERS: TOILET - STEP 2: Does the patient require the assistance of a helper? Yes. TRANSFERS: TOILET - STEP 3: How much assistance does the patient require from the helper? Patient performs half or more of the tr ansferring tasks TRANSFERS: TOILET - STEP 4: Does the patient need only incidental help such as contact guard or steadying during toilet transfer? Yes. TRANSFERS: TOILET - SCORE: 4-MIN TRANSFERS: SHOWER: Activity did not occur on this shift TRANSFERS: SHOWER - SCORE: 0-UNK TRANSFERS: TUB: Activity did not occur on this shift TRANSFERS: TUB - SCORE: 0-UNK LOCOMOTION: WALK: Activity did not occur on this shift LOCOMOTION: WALK - SCORE: 0-UNK LOCOMOTION: WHEELCHAIR: Activity did not occur on this shift LOCOMOTION: WHEELCHAIR - SCORE: 0-UNK COMPREHENSION: COMPREHENSION - STEP 1: Does the patient require help to understand complex and abstract ideas (such as current events, finan joseph, discharge planning, medical issues, relationships, etc)? No. COMPREHENSION - STEP 2: Does the patient need extra time, require an assistive device (such as glasses, hearing aids, or an a ugmentative communication system), OR does s/he have mild difficulty expressing complex and abstract ideas (including mild dysarthria or mild word-finding problems)? Yes. COMPREHENSION - SCORE: 6-EDIN EXPRESSION EXPRESSION - STEP 1: Does the patient require help expressing complex and abstract ideas (such as current events, finances , discharge planning, medical issues, relationships, etc)? No. EXPRESSION - STEP 2: Does the patient need extra time, require an assistive device (such as augmentive communication syste m or a communication board), OR does s/he have mild difficulty expressing complex and abstract ideas (including mild dysarthria or mild word-find problems)? Yes. EXPRESSION - SCORE: 6-EDIN SOCIAL INTERACTION: SOCIAL INTERACTION - STEP 1: Does the patient require a helper to interact with others in social and therapeutic situations? No. SOCIAL INTERACTION - STEP 2: Does the patient need extra time in social situations, OR does s/he interact with staff, other patien ts, and family members ONLY in structured environments, OR does s/he require medication for social in teraction? Yes, patient requires medication for social interaction SOCIAL INTERACTION - SCORE: 6-EDIN PROBLEM SOLVING: Patient requires bed/chair alarms due to attempts to get up unassisted when helper is needed. PROBLEM SOLVING - STEP 1: How often do the bed/chair alarms go off? Occasionally - the alarms go off about 25% or less PROBLEM SOLVING - SCORE: 4-MIN MEMORY: MEMORY - STEP 1: How often do the bed/chair alarms go off? Occasionally - the alarms go off about 25% of the time or l ess MEMORY - SCORE: 4-MIN SIGNATURE PANEL: The following modified sections: Eating - Score, Grooming - Score, Bathing - Score, Dressing - Upper Body - Score, Dressing - Lower Body - Score, Toileting - Score, Bladder Management - Score, Bowel Man agement - Score, Transfers: Bed, Chair, Wheelchair - Score, Transfers: Toilet - Score, Transfers: Karin wer - Score, Transfers: Tub - Score, Locomotion: Walk - Score, Locomotion: Wheelchair - Score, Compre hension - Score, Expression - Score, Social Interaction - Score, Problem Solving - Score, Memory - Sc ore were [electronically] signed by Emilee Katz RN on TueOct 23 2017 01:41:43 T-0500 ([facility] Time)
[2017-10-23] MEDS: LEVOTHYROXINE SOD 0.1 MG TAB PO SCH (05:30)
[2017-10-23] MEDS ORDERED: MAGNESIUM HYDROXIDE 8% 30 ML PO PRN (07:47)
[2017-10-23] MEDS: GABAPENTIN 300 MG CAP PO SCH ×3 (08:23→20:05)
[2017-10-23] MEDS: LISINOPRIL 20 MG TAB PO SCH (08:23)
[2017-10-23] MEDS: CRANBERRY FRUIT EXTRACT 200 MG CAP PO SCH ×2 (08:23→20:05)
[2017-10-23] MEDS: GLIMEPIRIDE 2 MG TABLET PO SCH ×2 (08:24→16:36)
[2017-10-23] MEDS: PROMOD 30 ML DOSE PO SCH ×2 (08:24→20:04)
[2017-10-23] MEDS: FERROUS SULFATE 325 MG TAB PO SCH ×2 (08:24→20:05)
[2017-10-23] MEDS: FLUTICASONE (FLONASE) 50MCG NASAL SPRAY NAS SCH ×2 (08:24→20:05)
--- NOTE | 2017-10-23 14:31 | FAST ---
SHIFT START DATE/TIME: 10/23/2017 07:00 (CDT) SHIFT END DATE/TIME: 10/23/2017 19:00 (CDT) NAME GEOVANNA BUSBY DATE OF : 1930 DATE OF ADMISSION: 10/17/2017 15:42 (CDT) PHONE: AGE: 87 [facility]# [phone] GENDER: Female ENCOUNTER PHYSICIAN: Dr. Dave Webber M.D. ADMISSION DIAGNOSIS: - Orthopaedic Disorders 08 - Femur (Shaft) Fracture (08.2) Left Femoral Neck Fracture. EATING: EATING - STEP 1: Does the patient require assistance when eating? Yes. EATING - STEP 2: Does the patient require the assistance of a helper? No, patient only requires an assistive device, O R s/he takes more than reasonable time to eat, OR there is a safety concern, OR s/he requires modifie d food consistency EATING - SCORE: 6-EDIN GROOMING: Comb/brush hair Oral care Wash, rinse, and dry face Wash, rinse, and dry hands GROOMING - STEP 1: Does the patient require assistance when grooming? Yes. GROOMING - STEP 2: Does the patient require the assistance of a helper? No. The patient only requires an assistive devic e, OR takes more than reasonable time to groom, OR there is a concern for safety as the patient groom s GROOMING - SCORE: 6-EDIN BATHING: Activity did not occur on this shift BATHING - SCORE: 0-UNK DRESSING - UPPER BODY: Activity did not occur on this shift ARTICLES SCORE Total number of steps: 0 DRESSING - UPPER BODY - SCORE: 0-UNK DRESSING - LOWER BODY: Activity did not occur on this shift ARTICLES SCORE Total number of steps: 0 DRESSING - LOWER BODY - SCORE: 0-UNK TOILETING: TOILETING - STEP 1: Does the patient require assistance with toileting? Yes. TOILETING - STEP 2: Does the patient require the assistance of a helper? Yes. TOILETING - STEP 3: How much assistance does the patient require from the helper? Only supervision TOILETING - SCORE: 5-SUP BLADDER MANAGEMENT: BLADDER MANAGEMENT - STEP 1: Does the patient control the bladder completely and intentionally without equipment or devices or med ications, and is always continent? Yes. BLADDER MANAGEMENT - SCORE: 7-IND BOWEL MANAGEMENT: Activity did not occur on this shift BOWEL MANAGEMENT - SCORE: 7-IND TRANSFERS: BED, CHAIR, WHEELCHAIR: TRANSFERS: BED, CHAIR, WHEELCHAIR - STEP 1: Does the patient require assistance with bed, chair, or wheelchair transfers? Yes. TRANSFERS: BED, CHAIR, WHEELCHAIR - STEP 2: Does the patient require the assistance of a helper? Yes. TRANSFERS: BED, CHAIR, WHEELCHAIR - STEP 3: How much assistance does the patient require from the helper? Only supervision TRANSFERS: BED, CHAIR, WHEELCHAIR - SCORE: 5-SUP TRANSFERS: TOILET: TRANSFERS: TOILET - STEP 1: Does the patient require assistance with toilet transfers? Yes. TRANSFERS: TOILET - STEP 2: Does the patient require the assistance of a helper? Yes. TRANSFERS: TOILET - STEP 3: How much assistance does the patient require from the helper? Only supervision, cuing, coaxing, OR he lp to set out transfer equipment or to lock brakes and/or lift foot rests TRANSFERS: TOILET - SCORE: 5-SUP TRANSFERS: SHOWER: After patient transfers from bed to shower chair on wheels, the helper pushes the chair into the walk -in shower TRANSFERS: SHOWER - SCORE: 1-DEP TRANSFERS: TUB: Activity did not occur on this shift TRANSFERS: TUB - SCORE: 0-UNK LOCOMOTION: WALK: Activity did not occur on this shift LOCOMOTION: WALK - SCORE: 0-UNK LOCOMOTION: WHEELCHAIR: Activity did not occur on this shift LOCOMOTION: WHEELCHAIR - SCORE: 0-UNK COMPREHENSION: COMPREHENSION - SCORE: 0-UNK EXPRESSION EXPRESSION - SCORE: 0-UNK SOCIAL INTERACTION: SOCIAL INTERACTION - SCORE: 0-UNK PROBLEM SOLVING: PROBLEM SOLVING - SCORE: 0-UNK MEMORY: MEMORY - SCORE: 0-UNK SIGNATURE PANEL: The following modified sections: Eating - Score, Grooming - Score, Bathing - Score, Dressing - Upper Body - Score, Dressing - Lower Body - Score, Toileting - Score, Bladder Management - Score, Bowel Man agement - Score, Transfers: Bed, Chair, Wheelchair - Score, Transfers: Toilet - Score, Transfers: Karin wer - Score, Transfers: Tub - Score, Locomotion: Walk - Score, Locomotion: Wheelchair - Score, Compre hension - Score, Social Interaction - Score, Expression - Score, Problem Solving - Score, Memory - Sc ore were [electronically] signed by Kash Carrillo on TueOct 23 2017 13:31:31 GMT-0500 (Central Daylight Time)
[2017-10-23] MEDS: ENOXAPARIN 40 MG/0.4 ML SQ SCH (16:36)
[2017-10-23] MEDS: HYDROCODONE/APAP 7.5/325 MG TAB PO PRN (16:36)
[2017-10-23] MEDS: LORAZEPAM 0.5 MG TABLET PO PRN (20:05)
[2017-10-23] MEDS: TRAMADOL HCL 50 MG TAB PO PRN (20:12)
--- NOTE | 2017-10-24 03:25 | FAST ---
SHIFT START DATE/TIME: 10/23/2017 19:00 (CDT) SHIFT END DATE/TIME: 10/24/2017 07:00 (CDT) NAME GEOVANNA BUSBY DATE OF : 1930 DATE OF ADMISSION: 10/17/2017 15:42 (CDT) PHONE: AGE: 87 [facility]# [phone] GENDER: Female ENCOUNTER PHYSICIAN: Dr. Dave Webber M.D. ADMISSION DIAGNOSIS: - Orthopaedic Disorders 08 - Femur (Shaft) Fracture (08.2) Left Femoral Neck Fracture. EATING: Activity did not occur on this shift EATING - SCORE: 0-UNK GROOMING: Wash, rinse, and dry hands GROOMING - STEP 1: Does the patient require assistance when grooming? Yes. GROOMING - STEP 2: Does the patient require the assistance of a helper? Yes. GROOMING - STEP 3: How much assistance does the patient require from the helper? Only prior equipment preparation/set up from the helper GROOMING - SCORE: 5-SUP BATHING: Activity did not occur on this shift BATHING - SCORE: 0-UNK DRESSING - UPPER BODY: Activity did not occur on this shift ARTICLES SCORE Total number of steps: 0 DRESSING - UPPER BODY - SCORE: 0-UNK DRESSING - LOWER BODY: Activity did not occur on this shift ARTICLES SCORE Total number of steps: 0 DRESSING - LOWER BODY - SCORE: 0-UNK TOILETING: TOILETING - STEP 1: Does the patient require assistance with toileting? Yes. TOILETING - STEP 2: Does the patient require the assistance of a helper? Yes. TOILETING - STEP 3: How much assistance does the patient require from the helper? Hands-on assistance from the helper TOILETING - STEP 4: Of the 3 tasks: 1) Adjusting clothing prior to use, 2) Cleansing of perineal area, 3) Adjusting clot nolberto after use; How many tasks does the patient perform WITHOUT assistance of the helper? Three tasks with steadying assistance from the helper TOILETING - SCORE: 4-MIN BLADDER MANAGEMENT: BLADDER MANAGEMENT - STEP 1: Does the patient control the bladder completely and intentionally without equipment or devices or med ications, and is always continent? No. BLADDER MANAGEMENT - STEP 2: Does the patient require the assistance of a helper? Yes. BLADDER MANAGEMENT - STEP 3: How much assistance does the patient require from the helper? Only set-up of equipment - such as plac ing it within reach of the patient or emptying a device - to maintain either satisfactory voiding pat tern or managing an external device, such as an absorbent pad, ileal device, or catheter BLADDER MANAGEMENT - SCORE: 5-SUP BOWEL MANAGEMENT: Activity did not occur on this shift BOWEL MANAGEMENT - SCORE: 7-IND TRANSFERS: BED, CHAIR, WHEELCHAIR: TRANSFERS: BED, CHAIR, WHEELCHAIR - STEP 1: Does the patient require assistance with bed, chair, or wheelchair transfers? Yes. TRANSFERS: BED, CHAIR, WHEELCHAIR - STEP 2: Does the patient require the assistance of a helper? Yes. TRANSFERS: BED, CHAIR, WHEELCHAIR - STEP 3: How much assistance does the patient require from the helper? Steadying/guiding assistance TRANSFERS: BED, CHAIR, WHEELCHAIR - SCORE: 4-MIN TRANSFERS: TOILET: TRANSFERS: TOILET - STEP 1: Does the patient require assistance with toilet transfers? Yes. TRANSFERS: TOILET - STEP 2: Does the patient require the assistance of a helper? Yes. TRANSFERS: TOILET - STEP 3: How much assistance does the patient require from the helper? Patient performs half or more of the tr ansferring tasks TRANSFERS: TOILET - STEP 4: Does the patient need only incidental help such as contact guard or steadying during toilet transfer? Yes. TRANSFERS: TOILET - SCORE: 4-MIN TRANSFERS: SHOWER: Activity did not occur on this shift TRANSFERS: SHOWER - SCORE: 0-UNK TRANSFERS: TUB: Activity did not occur on this shift TRANSFERS: TUB - SCORE: 0-UNK LOCOMOTION: WALK: Activity did not occur on this shift LOCOMOTION: WALK - SCORE: 0-UNK LOCOMOTION: WHEELCHAIR: Activity did not occur on this shift LOCOMOTION: WHEELCHAIR - SCORE: 0-UNK COMPREHENSION: COMPREHENSION - STEP 1: Does the patient require help to understand complex and abstract ideas (such as current events, finan joseph, discharge planning, medical issues, relationships, etc)? No. COMPREHENSION - STEP 2: Does the patient need extra time, require an assistive device (such as glasses, hearing aids, or an a ugmentative communication system), OR does s/he have mild difficulty expressing complex and abstract ideas (including mild dysarthria or mild word-finding problems)? Yes. COMPREHENSION - SCORE: 6-EDIN EXPRESSION EXPRESSION - STEP 1: Does the patient require help expressing complex and abstract ideas (such as current events, finances , discharge planning, medical issues, relationships, etc)? No. EXPRESSION - STEP 2: Does the patient need extra time, require an assistive device (such as augmentive communication syste m or a communication board), OR does s/he have mild difficulty expressing complex and abstract ideas (including mild dysarthria or mild word-find problems)? Yes. EXPRESSION - SCORE: 6-EDIN SOCIAL INTERACTION: SOCIAL INTERACTION - STEP 1: Does the patient require a helper to interact with others in social and therapeutic situations? No. SOCIAL INTERACTION - STEP 2: Does the patient need extra time in social situations, OR does s/he interact with staff, other patien ts, and family members ONLY in structured environments, OR does s/he require medication for social in teraction? Yes, patient requires medication for social interaction SOCIAL INTERACTION - SCORE: 6-EDIN PROBLEM SOLVING: Patient requires bed/chair alarms due to attempts to get up unassisted when helper is needed. PROBLEM SOLVING - STEP 1: How often do the bed/chair alarms go off? Occasionally - the alarms go off about 25% or less PROBLEM SOLVING - SCORE: 4-MIN MEMORY: MEMORY - STEP 1: How often do the bed/chair alarms go off? Occasionally - the alarms go off about 25% of the time or l ess MEMORY - SCORE: 4-MIN SIGNATURE PANEL: The following modified sections: Eating - Score, Grooming - Score, Bathing - Score, Dressing - Upper Body - Score, Dressing - Lower Body - Score, Toileting - Score, Bladder Management - Score, Bowel Man agement - Score, Transfers: Bed, Chair, Wheelchair - Score, Transfers: Toilet - Score, Transfers: Karin wer - Score, Transfers: Tub - Score, Locomotion: Walk - Score, Locomotion: Wheelchair - Score, Compre hension - Score, Expression - Score, Social Interaction - Score, Problem Solving - Score, Memory - Sc ore were [electronically] signed by Emilee Katz RN on TueOct 24 2017 02:26:04 T-0500 (Formerly [facility] Time)
[2017-10-24] MEDS: LEVOTHYROXINE SOD 0.1 MG TAB PO SCH (05:32)
[2017-10-24] MEDS: PROMOD 30 ML DOSE PO SCH ×2 (08:00→20:03)
[2017-10-24] MEDS: GLIMEPIRIDE 2 MG TABLET PO SCH ×2 (08:28→17:00)
[2017-10-24] MEDS: FERROUS SULFATE 325 MG TAB PO SCH ×2 (08:28→20:02)
[2017-10-24] MEDS: FLUTICASONE (FLONASE) 50MCG NASAL SPRAY NAS SCH ×2 (08:28→20:03)
[2017-10-24] MEDS: LISINOPRIL 20 MG TAB PO SCH (08:28)
[2017-10-24] MEDS: GABAPENTIN 300 MG CAP PO SCH ×3 (08:29→20:03)
[2017-10-24] MEDS: CRANBERRY FRUIT EXTRACT 200 MG CAP PO SCH ×2 (08:29→20:02)
[2017-10-24] MEDS: TRAMADOL HCL 50 MG TAB PO PRN ×2 (08:29→20:02)
[2017-10-24] MEDS: HYDROCODONE/APAP 7.5/325 MG TAB PO PRN (12:29)
[2017-10-24] MEDS: ENOXAPARIN 40 MG/0.4 ML SQ SCH (17:18)
[2017-10-24] MEDS: LORAZEPAM 0.5 MG TABLET PO PRN (20:02)
--- NOTE | 2017-10-25 03:33 | FAST ---
SHIFT START DATE/TIME: 10/24/2017 19:00 (CDT) SHIFT END DATE/TIME: 10/25/2017 07:00 (CDT) NAME GEOVANNA BUSBY DATE OF : 1930 DATE OF ADMISSION: 10/17/2017 15:42 (CDT) PHONE: AGE: 87 [facility]# [id number] GENDER: Female ENCOUNTER PHYSICIAN: Dr. Dave Webber M.D. ADMISSION DIAGNOSIS: - Orthopaedic Disorders 08 - Femur (Shaft) Fracture (08.2) Left Femoral Neck Fracture. EATING: Activity did not occur on this shift EATING - SCORE: 0-UNK GROOMING: Activity did not occur on this shift GROOMING - SCORE: 0-UNK BATHING: Activity did not occur on this shift BATHING - SCORE: 0-UNK DRESSING - UPPER BODY: Patient is not dressing in public clothing ARTICLES SCORE Total number of steps: 0 DRESSING - UPPER BODY - SCORE: 0-UNK DRESSING - LOWER BODY: Patient is not dressing in public clothing ARTICLES SCORE Total number of steps: 0 DRESSING - LOWER BODY - SCORE: 0-UNK TOILETING: TOILETING - STEP 1: Does the patient require assistance with toileting? Yes. TOILETING - STEP 2: Does the patient require the assistance of a helper? Yes. TOILETING - STEP 3: How much assistance does the patient require from the helper? Hands-on assistance from the helper TOILETING - STEP 4: Of the 3 tasks: 1) Adjusting clothing prior to use, 2) Cleansing of perineal area, 3) Adjusting clot nolberto after use; How many tasks does the patient perform WITHOUT assistance of the helper? Three tasks with steadying assistance from the helper TOILETING - SCORE: 4-MIN BLADDER MANAGEMENT: BLADDER MANAGEMENT - STEP 1: Does the patient control the bladder completely and intentionally without equipment or devices or med ications, and is always continent? No. BLADDER MANAGEMENT - STEP 2: Does the patient require the assistance of a helper? Yes. BLADDER MANAGEMENT - STEP 3: How much assistance does the patient require from the helper? Patient requires contact assistance fro m the helper BLADDER MANAGEMENT - STEP 4: How much contact assistance does the patient require from the helper? Patient requires minimal assist ance to maintain an external device - by positioning, and the patient performs 75% or more of bladder management tasks, while the helper provides less than 25% of the assistance to position patient on / off bedpan BLADDER MANAGEMENT - SCORE: 4-MIN BOWEL MANAGEMENT: Activity did not occur on this shift BOWEL MANAGEMENT - SCORE: 7-IND TRANSFERS: BED, CHAIR, WHEELCHAIR: TRANSFERS: BED, CHAIR, WHEELCHAIR - STEP 1: Does the patient require assistance with bed, chair, or wheelchair transfers? Yes. TRANSFERS: BED, CHAIR, WHEELCHAIR - STEP 2: Does the patient require the assistance of a helper? Yes. TRANSFERS: BED, CHAIR, WHEELCHAIR - STEP 3: How much assistance does the patient require from the helper? Steadying/guiding assistance TRANSFERS: BED, CHAIR, WHEELCHAIR - SCORE: 4-MIN TRANSFERS: TOILET: TRANSFERS: TOILET - STEP 1: Does the patient require assistance with toilet transfers? Yes. TRANSFERS: TOILET - STEP 2: Does the patient require the assistance of a helper? Yes. TRANSFERS: TOILET - STEP 3: How much assistance does the patient require from the helper? Patient performs half or more of the tr ansferring tasks TRANSFERS: TOILET - STEP 4: Does the patient need only incidental help such as contact guard or steadying during toilet transfer? No. Patient needs more than incidental help TRANSFERS: TOILET - SCORE: 3-MOD TRANSFERS: SHOWER: Activity did not occur on this shift TRANSFERS: SHOWER - SCORE: 0-UNK TRANSFERS: TUB: Activity did not occur on this shift TRANSFERS: TUB - SCORE: 0-UNK LOCOMOTION: WALK: Activity did not occur on this shift LOCOMOTION: WALK - SCORE: 0-UNK LOCOMOTION: WHEELCHAIR: Activity did not occur on this shift LOCOMOTION: WHEELCHAIR - SCORE: 0-UNK COMPREHENSION: COMPREHENSION: TYPE: Both COMPREHENSION - STEP 1: Does the patient require help to understand complex and abstract ideas (such as current events, finan joseph, discharge planning, medical issues, relationships, etc)? No. COMPREHENSION - STEP 2: Does the patient need extra time, require an assistive device (such as glasses, hearing aids, or an a ugmentative communication system), OR does s/he have mild difficulty expressing complex and abstract ideas (including mild dysarthria or mild word-finding problems)? Yes. COMPREHENSION - SCORE: 6-EDIN EXPRESSION EXPRESSION: TYPE: Both EXPRESSION - STEP 1: Does the patient require help expressing complex and abstract ideas (such as current events, finances , discharge planning, medical issues, relationships, etc)? No. EXPRESSION - STEP 2: Does the patient need extra time, require an assistive device (such as augmentive communication syste m or a communication board), OR does s/he have mild difficulty expressing complex and abstract ideas (including mild dysarthria or mild word-find problems)? Yes. EXPRESSION - SCORE: 6-EDIN SOCIAL INTERACTION: SOCIAL INTERACTION - STEP 1: Does the patient require a helper to interact with others in social and therapeutic situations? No. SOCIAL INTERACTION - STEP 2: Does the patient need extra time in social situations, OR does s/he interact with staff, other patien ts, and family members ONLY in structured environments, OR does s/he require medication for social in teraction? Yes, patient requires medication for social interaction SOCIAL INTERACTION - SCORE: 6-EDIN PROBLEM SOLVING: PROBLEM SOLVING - STEP 1: Does the patient need help to solve complex problems such as managing a checking account or confronti ng interpersonal problems? No. PROBLEM SOLVING - STEP 2: Does the patient require extra time to make decisions or solve problems, OR does s/he have slight dif ficulty reading, initiating, or self-correcting in unfamiliar situations? Yes, patient needs extra ti me. PROBLEM SOLVING - SCORE: 6-EDIN MEMORY: MEMORY - STEP 1: Does the patient need help to remember frequently encountered people, daily routines, and executing r equests? No. MEMORY - STEP 2: Does the patient have slight difficulty recognizing frequently encountered people, daily routines, or executing requests without the need for repetition or using self-initiated or environmental cues to remember? Yes. MEMORY - SCORE: 6-EDIN
[2017-10-25] MEDS: LEVOTHYROXINE SOD 0.1 MG TAB PO SCH (05:14)
[2017-10-25] MEDS: HYDROCODONE/APAP 7.5/325 MG TAB PO PRN ×2 (07:14→13:52)
[2017-10-25] MEDS: FERROUS SULFATE 325 MG TAB PO SCH ×2 (07:15→20:18)
[2017-10-25] MEDS: FLUTICASONE (FLONASE) 50MCG NASAL SPRAY NAS SCH ×2 (07:15→20:00)
[2017-10-25] MEDS: CRANBERRY FRUIT EXTRACT 200 MG CAP PO SCH ×2 (07:15→20:18)
[2017-10-25] MEDS: LISINOPRIL 20 MG TAB PO SCH (07:15)
[2017-10-25] MEDS: GABAPENTIN 300 MG CAP PO SCH ×3 (07:15→20:18)
[2017-10-25] MEDS: GLIMEPIRIDE 2 MG TABLET PO SCH ×2 (07:16→17:09)
[2017-10-25] MEDS: PROMOD 30 ML DOSE PO SCH ×2 (07:16→20:19)
--- NOTE | 2017-10-25 07:55 | FAST ---
ENCOUNTER DATE AND TIME: 10/24/2017 08:00 (CDT) NAME GEOVANNA BUSBY DATE OF : 1930 DATE OF ADMISSION: 10/17/2017 15:42 (CDT) PHONE: AGE: 87 N# [id number] GENDER: Female ENCOUNTER PHYSICIAN: Dr. Dave Webber M.D. ADMISSION DIAGNOSIS: - Orthopaedic Disorders 08 - Femur (Shaft) Fracture (08.2) Left Femoral Neck Fracture. EATING: Activity did not occur on this shift EATING - SCORE: 0-UNK GROOMING: Comb/brush hair Wash, rinse, and dry face Wash, rinse, and dry hands GROOMING - STEP 1: Does the patient require assistance when grooming? No. GROOMING - SCORE: 7-IND BATHING: Abdomen Buttocks Chest Left arm Left lower leg and foot Left upper leg Perineal area Right arm Right lower leg and foot Right upper leg BATHING - STEP 1: Does the patient require assistance when bathing? Yes. BATHING - STEP 2: Does the patient require the assistance of a helper? Yes. BATHING - STEP 3: How much assistance does the patient require from the helper? Only supervision, cuing, coaxing, instr uctions, encouragement BATHING - SCORE: 5-SUP DRESSING - UPPER BODY: T-shirt/pullover shirt (four steps) ARTICLES SCORE Total number of steps: 4 DRESSING - UPPER BODY - STEP 1: Does the patient require help when dressing above the waist? No. DRESSING - UPPER BODY - SCORE: 7-IND DRESSING - LOWER BODY: Elastic waist pants (three steps) Sock - Left foot (one step) Sock - Right foot (one step) Underwear (three steps) ARTICLES SCORE Total number of steps: 8 DRESSING - LOWER BODY - STEP 1: Does the patient require help when dressing below the waist? Yes. DRESSING - LOWER BODY - STEP 2: Does the patient require the assistance of a helper? Yes. DRESSING - LOWER BODY - STEP 3: Does the helper touch the patient while dressing? Yes. DRESSING - LOWER BODY - STEP 4: How many of the total steps does the patient complete on his/her own? 7 DRESSING - LOWER BODY - SCORE: 4-MIN TOILETING: Activity did not occur on this shift TOILETING - SCORE: 0-UNK BLADDER MANAGEMENT: Activity did not occur on this shift BLADDER MANAGEMENT - SCORE: 7-IND BOWEL MANAGEMENT: Activity did not occur on this shift BOWEL MANAGEMENT - SCORE: 7-IND TRANSFERS: BED, CHAIR, WHEELCHAIR: Activity did not occur on this shift TRANSFERS: BED, CHAIR, WHEELCHAIR - SCORE: 0-UNK TRANSFERS: TOILET: Activity did not occur on this shift TRANSFERS: TOILET - SCORE: 0-UNK TRANSFERS: SHOWER: TRANSFERS: SHOWER - STEP 1: Does the patient require assistance with shower transfers? Yes. TRANSFERS: SHOWER - STEP 2: Does the patient require the assistance of a helper? Yes. TRANSFERS: SHOWER - STEP 3: How much assistance does the patient require from the helper? Only supervision, cuing, coaxing, or he lp to set out transfer equipment or to lock brakes and/or lift foot rests TRANSFERS: SHOWER - SCORE: 5-SUP TRANSFERS: TUB: Activity did not occur on this shift TRANSFERS: TUB - SCORE: 0-UNK LOCOMOTION: WALK: Activity did not occur on this shift LOCOMOTION: WALK - SCORE: 0-UNK LOCOMOTION: WHEELCHAIR: Activity did not occur on this shift LOCOMOTION: WHEELCHAIR - SCORE: 0-UNK LOCOMOTION: STAIRS: Activity did not occur on this shift LOCOMOTION: STAIRS - SCORE: 0-UNK COMPREHENSION: COMPREHENSION: TYPE: Visual COMPREHENSION - STEP 1: Does the patient require help to understand complex and abstract ideas (such as current events, finan joseph, discharge planning, medical issues, relationships, etc)? No. COMPREHENSION - STEP 2: Does the patient need extra time, require an assistive device (such as glasses, hearing aids, or an a ugmentative communication system), OR does s/he have mild difficulty expressing complex and abstract ideas (including mild dysarthria or mild word-finding problems)? Yes. COMPREHENSION - SCORE: 6-EDIN EXPRESSION EXPRESSION: TYPE: Non-Vocal EXPRESSION - STEP 1: Does the patient require help expressing complex and abstract ideas (such as current events, finances , discharge planning, medical issues, relationships, etc)? No. EXPRESSION - STEP 2: Does the patient need extra time, require an assistive device (such as augmentive communication syste m or a communication board), OR does s/he have mild difficulty expressing complex and abstract ideas (including mild dysarthria or mild word-find problems)? No. EXPRESSION - SCORE: 7-IND SOCIAL INTERACTION: SOCIAL INTERACTION - STEP 1: Does the patient require a helper to interact with others in social and therapeutic situations? No. SOCIAL INTERACTION - STEP 2: Does the patient need extra time in social situations, OR does s/he interact with staff, other patien ts, and family members ONLY in structured environments, OR does s/he require medication for social in teraction? No. SOCIAL INTERACTION - SCORE: 7-IND PROBLEM SOLVING: PROBLEM SOLVING - STEP 1: Does the patient need help to solve complex problems such as managing a checking account or confronti ng interpersonal problems? No. PROBLEM SOLVING - STEP 2: Does the patient require extra time to make decisions or solve problems, OR does s/he have slight dif ficulty reading, initiating, or self-correcting in unfamiliar situations? Yes, patient needs extra ti me. PROBLEM SOLVING - SCORE: 6-EDIN MEMORY: MEMORY - STEP 1: Does the patient need help to remember frequently encountered people, daily routines, and executing r equests? No. MEMORY - STEP 2: Does the patient have slight difficulty recognizing frequently encountered people, daily routines, or executing requests without the need for repetition or using self-initiated or environmental cues to remember? Yes. MEMORY - SCORE: 6-EDIN SIGNATURE PANEL: The following modified sections: Eating - Score, Grooming - Score, Bathing - Score, Dressing - Upper Body - Score, Dressing - Lower Body - Score, Toileting - Score, Transfers: Bed, Chair, Wheelchair - S core, Transfers: Toilet - Score, Transfers: Shower - Score, Transfers: Tub - Score, Comprehension - S core, Expression - Score, Social Interaction - Score, Problem Solving - Score, Memory - Score were [e lectronically] signed by JOVANA Addison on TueOct 25 2017 06:55:07 T-0500 (Formerly [facility], [facility] Time)
[2017-10-25] MEDS ORDERED: ONDANSETRON 4 MG (ODT) TAB PO PRN (13:32)
--- NOTE | 2017-10-25 15:27 | FAST ---
ENCOUNTER DATE AND TIME: 10/25/2017 08:00 (CDT) NAME GEOVANNA BUSBY DATE OF : 1930 DATE OF ADMISSION: 10/17/2017 15:42 (CDT) PHONE: AGE: 87 N# [id number] GENDER: Female ENCOUNTER PHYSICIAN: Dr. Dave Webber M.D. ADMISSION DIAGNOSIS: - Orthopaedic Disorders 08 - Femur (Shaft) Fracture (08.2) Left Femoral Neck Fracture. EATING: Activity did not occur on this shift EATING - SCORE: 0-UNK GROOMING: Activity did not occur on this shift GROOMING - SCORE: 0-UNK BATHING: Activity did not occur on this shift BATHING - SCORE: 0-UNK DRESSING - UPPER BODY: Activity did not occur on this shift Patient is not dressing in public clothing ARTICLES SCORE Total number of steps: 0 DRESSING - UPPER BODY - SCORE: 0-UNK DRESSING - LOWER BODY: Activity did not occur on this shift Patient is not dressing in public clothing ARTICLES SCORE Total number of steps: 0 DRESSING - LOWER BODY - SCORE: 0-UNK TOILETING: Activity did not occur on this shift TOILETING - SCORE: 0-UNK BLADDER MANAGEMENT: Activity did not occur on this shift BLADDER MANAGEMENT - SCORE: 7-IND BOWEL MANAGEMENT: Activity did not occur on this shift BOWEL MANAGEMENT - SCORE: 7-IND TRANSFERS: BED, CHAIR, WHEELCHAIR: TRANSFERS: BED, CHAIR, WHEELCHAIR - STEP 1: Does the patient require assistance with bed, chair, or wheelchair transfers? Yes. TRANSFERS: BED, CHAIR, WHEELCHAIR - STEP 2: Does the patient require the assistance of a helper? Yes. TRANSFERS: BED, CHAIR, WHEELCHAIR - STEP 3: How much assistance does the patient require from the helper? Only supervision TRANSFERS: BED, CHAIR, WHEELCHAIR - SCORE: 5-SUP TRANSFERS: TOILET: Activity did not occur on this shift TRANSFERS: TOILET - SCORE: 0-UNK TRANSFERS: SHOWER: Activity did not occur on this shift TRANSFERS: SHOWER - SCORE: 0-UNK TRANSFERS: TUB: Activity did not occur on this shift TRANSFERS: TUB - SCORE: 0-UNK LOCOMOTION: WALK: LOCOMOTION: WALK - STEP 1: Does the patient need help to walk 150 feet? Yes. LOCOMOTION: WALK - STEP 2: How much assistance does the patient require to walk a minimum of 150 feet? Only supervision, cuing, or coaxing LOCOMOTION: WALK - SCORE: 5-SUP LOCOMOTION: WHEELCHAIR: Activity did not occur on this shift LOCOMOTION: WHEELCHAIR - SCORE: 0-UNK LOCOMOTION: STAIRS: Activity did not occur on this shift LOCOMOTION: STAIRS - SCORE: 0-UNK COMPREHENSION: COMPREHENSION - SCORE: 0-UNK EXPRESSION EXPRESSION - SCORE: 0-UNK SOCIAL INTERACTION: SOCIAL INTERACTION - SCORE: 0-UNK PROBLEM SOLVING: PROBLEM SOLVING - SCORE: 0-UNK MEMORY: MEMORY - SCORE: 0-UNK SIGNATURE PANEL: The following modified sections: Transfers: Bed, Chair, Wheelchair - Score, Transfers: Toilet - Score , Locomotion: Walk - Score, Locomotion: Wheelchair - Score, Locomotion: Stairs - Score were [electron polina] signed by Nargis Johnson PTA on TueOct 25 2017 14:27:23 GMT-0500 (Central Daylight Time)
--- NOTE | 2017-10-25 16:03 | FAST ---
ENCOUNTER DATE AND TIME: 10/24/2017 08:00 (CDT) NAME GEOVANNA BUSBY DATE OF : 1930 DATE OF ADMISSION: 10/17/2017 15:42 (CDT) PHONE: AGE: 87 N# [id number] GENDER: Female ENCOUNTER PHYSICIAN: Dr. Dave Webber M.D. ADMISSION DIAGNOSIS: - Orthopaedic Disorders 08 - Femur (Shaft) Fracture (08.2) Left Femoral Neck Fracture. EATING: Activity did not occur on this shift EATING - SCORE: 0-UNK GROOMING: Activity did not occur on this shift GROOMING - SCORE: 0-UNK BATHING: Activity did not occur on this shift BATHING - SCORE: 0-UNK DRESSING - UPPER BODY: Activity did not occur on this shift Patient is not dressing in public clothing ARTICLES SCORE Total number of steps: 0 DRESSING - UPPER BODY - SCORE: 0-UNK DRESSING - LOWER BODY: Activity did not occur on this shift Patient is not dressing in public clothing ARTICLES SCORE Total number of steps: 0 DRESSING - LOWER BODY - SCORE: 0-UNK TOILETING: Activity did not occur on this shift TOILETING - SCORE: 0-UNK BLADDER MANAGEMENT: Activity did not occur on this shift BLADDER MANAGEMENT - SCORE: 7-IND BOWEL MANAGEMENT: Activity did not occur on this shift BOWEL MANAGEMENT - SCORE: 7-IND TRANSFERS: BED, CHAIR, WHEELCHAIR: TRANSFERS: BED, CHAIR, WHEELCHAIR - STEP 1: Does the patient require assistance with bed, chair, or wheelchair transfers? Yes. TRANSFERS: BED, CHAIR, WHEELCHAIR - STEP 2: Does the patient require the assistance of a helper? Yes. TRANSFERS: BED, CHAIR, WHEELCHAIR - STEP 3: How much assistance does the patient require from the helper? Only supervision TRANSFERS: BED, CHAIR, WHEELCHAIR - SCORE: 5-SUP TRANSFERS: TOILET: Activity did not occur on this shift TRANSFERS: TOILET - SCORE: 0-UNK TRANSFERS: SHOWER: Activity did not occur on this shift TRANSFERS: SHOWER - SCORE: 0-UNK TRANSFERS: TUB: Activity did not occur on this shift TRANSFERS: TUB - SCORE: 0-UNK LOCOMOTION: WALK: LOCOMOTION: WALK - STEP 1: Does the patient need help to walk 150 feet? Yes. LOCOMOTION: WALK - STEP 2: How much assistance does the patient require to walk a minimum of 150 feet? Only supervision, cuing, or coaxing LOCOMOTION: WALK - SCORE: 5-SUP LOCOMOTION: WHEELCHAIR: LOCOMOTION: WHEELCHAIR - STEP 1: Does the patient need help to go 150 feet in a wheelchair? Yes. LOCOMOTION: WHEELCHAIR - STEP 2: How much assistance does the patient need from the helper? Only supervision, cuing, or coaxing LOCOMOTION: WHEELCHAIR - SCORE: 5-SUP LOCOMOTION: STAIRS: Activity did not occur on this shift LOCOMOTION: STAIRS - SCORE: 0-UNK COMPREHENSION: COMPREHENSION - SCORE: 0-UNK EXPRESSION EXPRESSION - SCORE: 0-UNK SOCIAL INTERACTION: SOCIAL INTERACTION - SCORE: 0-UNK PROBLEM SOLVING: PROBLEM SOLVING - SCORE: 0-UNK MEMORY: MEMORY - SCORE: 0-UNK SIGNATURE PANEL: The following modified sections: Transfers: Bed, Chair, Wheelchair - Score, Transfers: Toilet - Score , Locomotion: Walk - Score, Locomotion: Wheelchair - Score, Locomotion: Stairs - Score were [cesilia fish] signed by Live Johnson PTA on TueOct 25 2017 15:04:09 T-0500 (Central Daylight Time)
--- NOTE | 2017-10-25 16:19 | FAST ---
SHIFT START DATE/TIME: 10/25/2017 07:00 (CDT) SHIFT END DATE/TIME: 10/25/2017 19:00 (CDT) NAME GEOVANNA BUSBY DATE OF : 1930 DATE OF ADMISSION: 10/17/2017 15:42 (CDT) PHONE: AGE: 87 N# [id number] GENDER: Female ENCOUNTER PHYSICIAN: Dr. Dave Webber M.D. ADMISSION DIAGNOSIS: - Orthopaedic Disorders 08 - Femur (Shaft) Fracture (08.2) Left Femoral Neck Fracture. EATING: EATING - STEP 1: Does the patient require assistance when eating? Yes. EATING - STEP 2: Does the patient require the assistance of a helper? No, patient only requires an assistive device, O R s/he takes more than reasonable time to eat, OR there is a safety concern, OR s/he requires modifie d food consistency EATING - SCORE: 6-EDIN GROOMING: Comb/brush hair Oral care Wash, rinse, and dry face Wash, rinse, and dry hands GROOMING - STEP 1: Does the patient require assistance when grooming? Yes. GROOMING - STEP 2: Does the patient require the assistance of a helper? No. The patient only requires an assistive devic e, OR takes more than reasonable time to groom, OR there is a concern for safety as the patient groom s GROOMING - SCORE: 6-EDIN BATHING: Activity did not occur on this shift BATHING - SCORE: 0-UNK DRESSING - UPPER BODY: Bra (three steps) T-shirt/pullover shirt (four steps) ARTICLES SCORE Total number of steps: 7 DRESSING - UPPER BODY - STEP 1: Does the patient require help when dressing above the waist? Yes. DRESSING - UPPER BODY - STEP 2: Does the patient require the assistance of a helper? No. Patient only requires an assistive device, s uch as a button hook, velcro, or filer and sander. OR s/he takes more than reasonable time as s/he dresses the upper body. OR there is a concern for safety when s/he dresses the upper body DRESSING - UPPER BODY - SCORE: 6-EDIN DRESSING - LOWER BODY: Elastic waist pants (three steps) Slip-on shoe - Left foot (one step) Slip-on shoe - Right foot (one step) Underwear (three steps) ARTICLES SCORE Total number of steps: 8 DRESSING - LOWER BODY - STEP 1: Does the patient require help when dressing below the waist? Yes. DRESSING - LOWER BODY - STEP 2: Does the patient require the assistance of a helper? Yes. DRESSING - LOWER BODY - STEP 3: Does the helper touch the patient while dressing? No. DRESSING - LOWER BODY - SCORE: 5-SUP TOILETING: TOILETING - STEP 1: Does the patient require assistance with toileting? Yes. TOILETING - STEP 2: Does the patient require the assistance of a helper? Yes. TOILETING - STEP 3: How much assistance does the patient require from the helper? Only supervision TOILETING - SCORE: 5-SUP BLADDER MANAGEMENT: BLADDER MANAGEMENT - STEP 1: Does the patient control the bladder completely and intentionally without equipment or devices or med ications, and is always continent? No. BLADDER MANAGEMENT - STEP 2: Does the patient require the assistance of a helper? Yes. BLADDER MANAGEMENT - STEP 3: How much assistance does the patient require from the helper? Only supervision, stand-by, cuing, or c oaxing BLADDER MANAGEMENT - SCORE: 5-SUP BLADDER MANAGEMENT - FREQUENCY OF ACCIDENTS: BLADDER MANAGEMENT(FA) - STEP 1: How many accidents has the patient had during the current shift? 0 BOWEL MANAGEMENT: Activity did not occur on this shift BOWEL MANAGEMENT - SCORE: 7-IND BOWEL MANAGEMENT - FREQUENCY OF ACCIDENTS: BOWEL MANAGEMENT(FA) - STEP 1: How many accidents has the patient had during the current shift? 0 TRANSFERS: BED, CHAIR, WHEELCHAIR: TRANSFERS: BED, CHAIR, WHEELCHAIR - STEP 1: Does the patient require assistance with bed, chair, or wheelchair transfers? Yes. TRANSFERS: BED, CHAIR, WHEELCHAIR - STEP 2: Does the patient require the assistance of a helper? Yes. TRANSFERS: BED, CHAIR, WHEELCHAIR - STEP 3: How much assistance does the patient require from the helper? Only supervision TRANSFERS: BED, CHAIR, WHEELCHAIR - SCORE: 5-SUP TRANSFERS: TOILET: TRANSFERS: TOILET - STEP 1: Does the patient require assistance with toilet transfers? Yes. TRANSFERS: TOILET - STEP 2: Does the patient require the assistance of a helper? Yes. TRANSFERS: TOILET - STEP 3: How much assistance does the patient require from the helper? Only supervision, cuing, coaxing, OR he lp to set out transfer equipment or to lock brakes and/or lift foot rests TRANSFERS: TOILET - SCORE: 5-SUP TRANSFERS: SHOWER: Activity did not occur on this shift TRANSFERS: SHOWER - SCORE: 0-UNK TRANSFERS: TUB: Activity did not occur on this shift TRANSFERS: TUB - SCORE: 0-UNK LOCOMOTION: WALK: Activity did not occur on this shift LOCOMOTION: WALK - SCORE: 0-UNK LOCOMOTION: WHEELCHAIR: LOCOMOTION: WHEELCHAIR - STEP 1: Does the patient need help to go 150 feet in a wheelchair? Yes. LOCOMOTION: WHEELCHAIR - STEP 2: How much assistance does the patient need from the helper? Only supervision, cuing, or coaxing LOCOMOTION: WHEELCHAIR - SCORE: 5-SUP COMPREHENSION: COMPREHENSION: TYPE: Both COMPREHENSION - STEP 1: Does the patient require help to understand complex and abstract ideas (such as current events, finan joseph, discharge planning, medical issues, relationships, etc)? No. COMPREHENSION - STEP 2: Does the patient need extra time, require an assistive device (such as glasses, hearing aids, or an a ugmentative communication system), OR does s/he have mild difficulty expressing complex and abstract ideas (including mild dysarthria or mild word-finding problems)? Yes. COMPREHENSION - SCORE: 6-EDIN EXPRESSION EXPRESSION: TYPE: Both EXPRESSION - STEP 1: Does the patient require help expressing complex and abstract ideas (such as current events, finances , discharge planning, medical issues, relationships, etc)? No. EXPRESSION - STEP 2: Does the patient need extra time, require an assistive device (such as augmentive communication syste m or a communication board), OR does s/he have mild difficulty expressing complex and abstract ideas (including mild dysarthria or mild word-find problems)? Yes. EXPRESSION - SCORE: 6-EDIN SOCIAL INTERACTION: SOCIAL INTERACTION - STEP 1: Does the patient require a helper to interact with others in social and therapeutic situations? No. SOCIAL INTERACTION - STEP 2: Does the patient need extra time in social situations, OR does s/he interact with staff, other patien ts, and family members ONLY in structured environments, OR does s/he require medication for social in teraction? No. SOCIAL INTERACTION - SCORE: 7-IND PROBLEM SOLVING: PROBLEM SOLVING - STEP 1: Does the patient need help to solve complex problems such as managing a checking account or confronti ng interpersonal problems? Yes. PROBLEM SOLVING - STEP 2: Does the patient solve basic routine problems half or more of the time? Yes. PROBLEM SOLVING - STEP 3: How often does the patient need help to solve basic routine problems? Less than 10% of the time PROBLEM SOLVING - SCORE: 5-SUP MEMORY: MEMORY - STEP 1: Does the patient need help to remember frequently encountered people, daily routines, and executing r equests? Yes. MEMORY - STEP 2: How often does the patient need help to remember frequently encountered people, daily routines, and e xecuting requests? Less than 10% of the time MEMORY - SCORE: 5-SUP SIGNATURE PANEL: The following modified sections: Eating - Score, Grooming - Score, Bathing - Score, Dressing - Upper Body - Score, Dressing - Lower Body - Score, Toileting - Score, Bladder Management - Score, Bowel Man agement - Score, Transfers: Bed, Chair, Wheelchair - Score, Transfers: Toilet - Score, Transfers: Karin wer - Score, Transfers: Tub - Score, Locomotion: Walk - Score, Locomotion: Wheelchair - Score, Compre hension - Score, Expression - Score, Social Interaction - Score, Problem Solving - Score, Memory - Sc ore were [electronically] signed by Aminta Mueller C.N.A. on TueOct 25 2017 15:19:42 GMT-0500 (Centra [place] Daylight Time)
--- NOTE | 2017-10-25 16:30 | FAST ---
SHIFT START DATE/TIME: 10/24/2017 07:00 (CDT) SHIFT END DATE/TIME: 10/24/2017 19:00 (CDT) NAME GEOVANNA BUSBY DATE OF : 1930 DATE OF ADMISSION: 10/17/2017 15:42 (CDT) PHONE: AGE: 87 [facility]# [id number] GENDER: Female ENCOUNTER PHYSICIAN: Dr. Dave Webber M.D. ADMISSION DIAGNOSIS: - Orthopaedic Disorders 08 - Femur (Shaft) Fracture (08.2) Left Femoral Neck Fracture. EATING: EATING - STEP 1: Does the patient require assistance when eating? Yes. EATING - STEP 2: Does the patient require the assistance of a helper? No, patient only requires an assistive device, O R s/he takes more than reasonable time to eat, OR there is a safety concern, OR s/he requires modifie d food consistency EATING - SCORE: 6-EDIN GROOMING: Comb/brush hair Oral care Wash, rinse, and dry face Wash, rinse, and dry hands GROOMING - STEP 1: Does the patient require assistance when grooming? Yes. GROOMING - STEP 2: Does the patient require the assistance of a helper? No. The patient only requires an assistive devic e, OR takes more than reasonable time to groom, OR there is a concern for safety as the patient groom s GROOMING - SCORE: 6-EDIN BATHING: Activity did not occur on this shift BATHING - SCORE: 0-UNK DRESSING - UPPER BODY: Bra (three steps) T-shirt/pullover shirt (four steps) ARTICLES SCORE Total number of steps: 7 DRESSING - UPPER BODY - STEP 1: Does the patient require help when dressing above the waist? Yes. DRESSING - UPPER BODY - STEP 2: Does the patient require the assistance of a helper? Yes. DRESSING - UPPER BODY - STEP 3: Does the helper touch the patient while dressing? No. DRESSING - UPPER BODY - SCORE: 5-SUP DRESSING - LOWER BODY: Elastic waist pants (three steps) Slip-on shoe - Left foot (one step) Slip-on shoe - Right foot (one step) Underwear (three steps) ARTICLES SCORE Total number of steps: 8 DRESSING - LOWER BODY - STEP 1: Does the patient require help when dressing below the waist? Yes. DRESSING - LOWER BODY - STEP 2: Does the patient require the assistance of a helper? Yes. DRESSING - LOWER BODY - STEP 3: Does the helper touch the patient while dressing? Yes. DRESSING - LOWER BODY - STEP 4: How many of the total steps does the patient complete on his/her own? 4 DRESSING - LOWER BODY - SCORE: 3-MOD TOILETING: TOILETING - STEP 1: Does the patient require assistance with toileting? Yes. TOILETING - STEP 2: Does the patient require the assistance of a helper? No. TOILETING - SCORE: 6-EDIN BLADDER MANAGEMENT: BLADDER MANAGEMENT - STEP 1: Does the patient control the bladder completely and intentionally without equipment or devices or med ications, and is always continent? No. BLADDER MANAGEMENT - STEP 2: Does the patient require the assistance of a helper? Yes. BLADDER MANAGEMENT - STEP 3: How much assistance does the patient require from the helper? Only supervision, stand-by, cuing, or c oaxing BLADDER MANAGEMENT - SCORE: 5-SUP BLADDER MANAGEMENT - FREQUENCY OF ACCIDENTS: BLADDER MANAGEMENT(FA) - STEP 1: How many accidents has the patient had during the current shift? 0 BOWEL MANAGEMENT: Activity did not occur on this shift BOWEL MANAGEMENT - SCORE: 7-IND BOWEL MANAGEMENT - FREQUENCY OF ACCIDENTS: BOWEL MANAGEMENT(FA) - STEP 1: How many accidents has the patient had during the current shift? 0 TRANSFERS: BED, CHAIR, WHEELCHAIR: TRANSFERS: BED, CHAIR, WHEELCHAIR - STEP 1: Does the patient require assistance with bed, chair, or wheelchair transfers? Yes. TRANSFERS: BED, CHAIR, WHEELCHAIR - STEP 2: Does the patient require the assistance of a helper? Yes. TRANSFERS: BED, CHAIR, WHEELCHAIR - STEP 3: How much assistance does the patient require from the helper? Only supervision TRANSFERS: BED, CHAIR, WHEELCHAIR - SCORE: 5-SUP TRANSFERS: TOILET: TRANSFERS: TOILET - STEP 1: Does the patient require assistance with toilet transfers? Yes. TRANSFERS: TOILET - STEP 2: Does the patient require the assistance of a helper? Yes. TRANSFERS: TOILET - STEP 3: How much assistance does the patient require from the helper? Patient performs half or more of the tr ansferring tasks TRANSFERS: TOILET - STEP 4: Does the patient need only incidental help such as contact guard or steadying during toilet transfer? Yes. TRANSFERS: TOILET - SCORE: 4-MIN TRANSFERS: SHOWER: Activity did not occur on this shift TRANSFERS: SHOWER - SCORE: 0-UNK TRANSFERS: TUB: Activity did not occur on this shift TRANSFERS: TUB - SCORE: 0-UNK LOCOMOTION: WALK: Activity did not occur on this shift LOCOMOTION: WALK - SCORE: 0-UNK LOCOMOTION: WHEELCHAIR: LOCOMOTION: WHEELCHAIR - STEP 1: Does the patient need help to go 150 feet in a wheelchair? Yes. LOCOMOTION: WHEELCHAIR - STEP 2: How much assistance does the patient need from the helper? Only supervision, cuing, or coaxing LOCOMOTION: WHEELCHAIR - SCORE: 5-SUP COMPREHENSION: COMPREHENSION: TYPE: Both COMPREHENSION - STEP 1: Does the patient require help to understand complex and abstract ideas (such as current events, finan joseph, discharge planning, medical issues, relationships, etc)? No. COMPREHENSION - STEP 2: Does the patient need extra time, require an assistive device (such as glasses, hearing aids, or an a ugmentative communication system), OR does s/he have mild difficulty expressing complex and abstract ideas (including mild dysarthria or mild word-finding problems)? Yes. COMPREHENSION - SCORE: 6-EDIN EXPRESSION EXPRESSION: TYPE: Both EXPRESSION - STEP 1: Does the patient require help expressing complex and abstract ideas (such as current events, finances , discharge planning, medical issues, relationships, etc)? No. EXPRESSION - STEP 2: Does the patient need extra time, require an assistive device (such as augmentive communication syste m or a communication board), OR does s/he have mild difficulty expressing complex and abstract ideas (including mild dysarthria or mild word-find problems)? Yes. EXPRESSION - SCORE: 6-EDIN SOCIAL INTERACTION: SOCIAL INTERACTION - STEP 1: Does the patient require a helper to interact with others in social and therapeutic situations? No. SOCIAL INTERACTION - STEP 2: Does the patient need extra time in social situations, OR does s/he interact with staff, other patien ts, and family members ONLY in structured environments, OR does s/he require medication for social in teraction? No. SOCIAL INTERACTION - SCORE: 7-IND PROBLEM SOLVING: PROBLEM SOLVING - STEP 1: Does the patient need help to solve complex problems such as managing a checking account or confronti ng interpersonal problems? Yes. PROBLEM SOLVING - STEP 2: Does the patient solve basic routine problems half or more of the time? Yes. PROBLEM SOLVING - STEP 3: How often does the patient need help to solve basic routine problems? Less than 10% of the time PROBLEM SOLVING - SCORE: 5-SUP MEMORY: MEMORY - STEP 1: Does the patient need help to remember frequently encountered people, daily routines, and executing r equests? Yes. MEMORY - STEP 2: How often does the patient need help to remember frequently encountered people, daily routines, and e xecuting requests? Less than 10% of the time MEMORY - SCORE: 5-SUP SIGNATURE PANEL: The following modified sections: Eating - Score, Grooming - Score, Bathing - Score, Dressing - Upper Body - Score, Dressing - Lower Body - Score, Toileting - Score, Bladder Management - Score, Bowel Man agement - Score, Transfers: Bed, Chair, Wheelchair - Score, Transfers: Toilet - Score, Transfers: Karin wer - Score, Transfers: Tub - Score, Locomotion: Walk - Score, Locomotion: Wheelchair - Score, Compre hension - Score, Expression - Score, Social Interaction - Score, Problem Solving - Score, Memory - Sc ore were [electronically] signed by Aminta Mueller C.N.A. on TueOct 25 2017 15:30:34 T-0500 (Centra l Daylight Time)
[2017-10-25] MEDS: ENOXAPARIN 40 MG/0.4 ML SQ SCH (17:09)
--- NOTE | 2017-10-25 19:37 | R.PN ---
ENCOUNTER DATE AND TIME: 10/25/2017 18:35 (CDT) NAME GEOVANNA BUSBY DATE OF : 1930 DATE OF ADMISSION: 10/17/2017 15:42 (CDT) Left Femoral Neck FractureCHIEF COMPLAINT: Left hip fracture SUBJECTIVE: Pt denied any Shortness of Breath. Pt denied any depression. Ambulated indoors and outdoors using a rolling walker with standby assistance over 500'. Up and down 15 steps using bilateral handrails with contact guard assistance. Self-propelled wheelchair 150' with standby assistance. VITAL SIGNS Temperature: 97.9 F SBP/DBP: 122/59 Pulse: 87 Resp: 16 MEDICATION ALLERGIES: Penicillin Sulfa ENVIRONMENTAL ALLERGIES: None Known - Substance Allergies None Known - Other Allergies None Known NURSING: - Shower allowing shower - Lab Results blood Sugar Check ACHS - Skin care per protocol PRECAUTIONS: - Weight Bearing Precaution WBAT left LE - Fall Precaution Bed and chair alarm ACTIVITIES OOB only with supervision THERAPIES: - Occupational Therapy Evaluate and Treat. - Physical Therapy Evaluate and Treat. PHYSICAL EXAM - Gen Alert and awake Lying in bed No apparent distress Oriented to: person, time, and place - Skin No skin breakdown. Normacephalic - Eyes No abnormalities - ENMT No abnormalities - Neck No abnormalities - CVS RRR - Chest Clear - Abd Soft - GI Non distended Deferred - No abnormalities - Ext No significant edema - MSK Unremarkable - Neuro No focal deficits - Psych No abnormalities ASSESSMENT: Pt. is a 87 yo Right-handed white female.Her impairment category is Orthopaedic Disorders 08 - Femur (Shaft) Fracture (08.2).Pre-morbidly, Pt. was independent/mod-I in Transfers Control, Communication, Social Cognition, Self-Care, Locomotion, and Sphincter Control; and she had good Sphincter Control.C urrently, she has deficits of Safety Awareness, Transfers Control, Balance, Self-Care, Locomotion, an d Endurance.Pt. is now referred to [facility] for acute in-patient rehabilitat ion in order to maximize patient's functional independence in activities of daily living, strength, R OM, and mobility.- Rehab Goal Patient has realistic goal of being discharged at assistance level 6-Leatha to reside at Home with Fam boyd/Relatives. MDM/PLAN: - Diet Type Continue Regular - Physical Therapy Decreased range of motion - to improve, our physical therapists will perform initial evaluation of p t's status upon admission and devise an individualized program for increasing patient's Range of Augusto on. Gait dysfunction - to improve, our physical therapists will perform initial evaluation of pt's statu s upon admission and devise an individualized program for Gait Training, and Wheel Chair mobility Inability to transfer - to improve, our physical therapists will perform initial evaluation of pt's status upon admission and devise an individualized program for Bed mobility Need for home safety evaluation - to improve, our physical therapists will perform initial evaluatio n of pt's status upon admission and devise an individualized program for Home Evaluation Need in caregiver upon discharge - to improve, our physical therapists will perform initial evaluati on of pt's status upon admission and devise an individualized program for Caregiver Training New precaution - to improve, our physical therapists will perform initial evaluation of pt's status upon admission and devise an individualized program for Patient precaution education Edema - to improve, our physical therapists will perform initial evaluation of pt's status upon admi ssion and devise an individualized program for Elevation Training, and Lymphedema Therapy Poor balance - to improve, our physical therapists will perform initial evaluation of pt's status up on admission and devise an individualized program for Balance Training Poor endurance - to improve, our physical therapists will perform initial evaluation of pt's status upon admission and devise an individualized program for Endurance Training Weakness - to improve, our physical therapists will perform initial evaluation of pt's status upon a dmission and devise an individualized program for Aquatic Therapy, Neuromuscular Reeducation, and Str engthening Achieving independence - to improve, our physical therapists will perform initial evaluation of pt's status upon admission and devise an individualized program for Community Reintegration Activities - Diet - Liquid Texture Continue Regular - Tube Feed Continue N/A - Lab Results blood Sugar Check ACHS - Weight Bearing Precaution WBAT left LE - Fall Precaution Bed and chair alarm - Skin care per protocol - Diet - Solid Texture Continue Regular - Shower allowing shower - Occupational Therapy ADL deficits - to improve, our occupation therapists will perform initial evaluation of pt's status upon admission and devise an individualized program for Bathing, Bed mobility, Community Reintegratio n, Cooking, Dressing, Eating, Fine Motor Skills, Grooming, Homemaking, Kitchen Mobility, Laundry, Pat ient Education, Safety Awareness, Splinting - Positioning, Transfers(Toilet, Tub, Shower), and Wheel Chair Management Need for aged or disabled care worker - to improve, our occupation therapists will perform initial evaluation of pt's status upon admission and devise an individualized program for Caregiver Training Weakness - to improve, our occupation therapists will perform initial evaluation of pt's status upon admission and devise an individualized program for Aquatic Therapy, Balance, Endurance, UE ROM, and UE strengthening FUNCTIONAL STATUS: UPDATED AT WEEKLY TEAM CONFERENCE - Bladder Same accident frequency: 7-Ind - No accidents in the past 7 days - Bowel Same accident frequency: 7-Ind - No accidents in the past 7 days - Walking Same score based on distance walked: 2(50-149ft) - Wheelchair Same score based on distance traveled: 0(N/A) FUNCTIONAL STATUS: - Self-Care A. Eating sup B. Grooming sup C. Bathing sup D. Dressing - Upper sup E. Dressing - Lower sup F. Toileting Susie - Sphincter Control G: Bladder control Ind H: Bowel control Ind - Transfers Control I. Bed/Chair/Wheelchair Susie J. Toilet Susie K. Tub/Shower ADNO - Locomotion L. Walk/Wheelchair (C) Susie L. Walk/Wheelchair (W) Susie M. Stairs ADNO - Communication N. Comprehension (B) Leatha O. Expression (B) Leatha - Social Cognition P. Social Interaction Leatha Q. Problem Solving Leatha R. Memory Leatha - Endurance Fair - Balance Fair - Safety Awareness Fair CURRENT FUNC. DEFICITS: Safety Awareness, Transfers Control, Balance, Self-Care, Locomotion, and Endurance SIGNATURE PANEL: (CDT)
[2017-10-25] MEDS: DOCUSATE NA/SENNA CONC 1 TAB PO PRN (20:18)
[2017-10-25] MEDS: LORAZEPAM 0.5 MG TABLET PO PRN (20:19)
--- NOTE | 2017-10-26 04:49 | FAST ---
SHIFT START DATE/TIME: 10/25/2017 19:00 (CDT) SHIFT END DATE/TIME: 10/26/2017 07:00 (CDT) NAME GEOVANNA BUSBY DATE OF : 1930 DATE OF ADMISSION: 10/17/2017 15:42 (CDT) PHONE: AGE: 87 [facility]# [id number] GENDER: Female ENCOUNTER PHYSICIAN: Dr. Dave Webber M.D. ADMISSION DIAGNOSIS: - Orthopaedic Disorders 08 - Femur (Shaft) Fracture (08.2) Left Femoral Neck Fracture. EATING: Activity did not occur on this shift EATING - SCORE: 0-UNK GROOMING: Activity did not occur on this shift GROOMING - SCORE: 0-UNK BATHING: Activity did not occur on this shift BATHING - SCORE: 0-UNK DRESSING - UPPER BODY: Activity did not occur on this shift ARTICLES SCORE Total number of steps: 0 DRESSING - UPPER BODY - SCORE: 0-UNK DRESSING - LOWER BODY: Activity did not occur on this shift ARTICLES SCORE Total number of steps: 0 DRESSING - LOWER BODY - SCORE: 0-UNK TOILETING: TOILETING - STEP 1: Does the patient require assistance with toileting? Yes. TOILETING - STEP 2: Does the patient require the assistance of a helper? Yes. TOILETING - STEP 3: How much assistance does the patient require from the helper? Only supervision TOILETING - SCORE: 5-SUP BLADDER MANAGEMENT: BLADDER MANAGEMENT - STEP 1: Does the patient control the bladder completely and intentionally without equipment or devices or med ications, and is always continent? No. BLADDER MANAGEMENT - STEP 2: Does the patient require the assistance of a helper? Yes. BLADDER MANAGEMENT - STEP 3: How much assistance does the patient require from the helper? Only supervision, stand-by, cuing, or c oaxing BLADDER MANAGEMENT - SCORE: 5-SUP BLADDER MANAGEMENT - FREQUENCY OF ACCIDENTS: BLADDER MANAGEMENT(FA) - STEP 1: How many accidents has the patient had during the current shift? 0 BOWEL MANAGEMENT: Activity did not occur on this shift BOWEL MANAGEMENT - SCORE: 7-IND BOWEL MANAGEMENT - FREQUENCY OF ACCIDENTS: BOWEL MANAGEMENT(FA) - STEP 1: How many accidents has the patient had during the current shift? 0 TRANSFERS: BED, CHAIR, WHEELCHAIR: TRANSFERS: BED, CHAIR, WHEELCHAIR - STEP 1: Does the patient require assistance with bed, chair, or wheelchair transfers? Yes. TRANSFERS: BED, CHAIR, WHEELCHAIR - STEP 2: Does the patient require the assistance of a helper? Yes. TRANSFERS: BED, CHAIR, WHEELCHAIR - STEP 3: How much assistance does the patient require from the helper? Steadying/guiding assistance TRANSFERS: BED, CHAIR, WHEELCHAIR - SCORE: 4-MIN TRANSFERS: TOILET: TRANSFERS: TOILET - STEP 1: Does the patient require assistance with toilet transfers? Yes. TRANSFERS: TOILET - STEP 2: Does the patient require the assistance of a helper? Yes. TRANSFERS: TOILET - STEP 3: How much assistance does the patient require from the helper? Patient performs half or more of the tr ansferring tasks TRANSFERS: TOILET - STEP 4: Does the patient need only incidental help such as contact guard or steadying during toilet transfer? Yes. TRANSFERS: TOILET - SCORE: 4-MIN TRANSFERS: SHOWER: Activity did not occur on this shift TRANSFERS: SHOWER - SCORE: 0-UNK TRANSFERS: TUB: Activity did not occur on this shift TRANSFERS: TUB - SCORE: 0-UNK LOCOMOTION: WALK: Activity did not occur on this shift LOCOMOTION: WALK - SCORE: 0-UNK LOCOMOTION: WHEELCHAIR: Activity did not occur on this shift LOCOMOTION: WHEELCHAIR - SCORE: 0-UNK COMPREHENSION: COMPREHENSION: TYPE: Both COMPREHENSION - STEP 1: Does the patient require help to understand complex and abstract ideas (such as current events, finan joseph, discharge planning, medical issues, relationships, etc)? No. COMPREHENSION - STEP 2: Does the patient need extra time, require an assistive device (such as glasses, hearing aids, or an a ugmentative communication system), OR does s/he have mild difficulty expressing complex and abstract ideas (including mild dysarthria or mild word-finding problems)? Yes. COMPREHENSION - SCORE: 6-EDIN EXPRESSION EXPRESSION: TYPE: Both EXPRESSION - STEP 1: Does the patient require help expressing complex and abstract ideas (such as current events, finances , discharge planning, medical issues, relationships, etc)? No. EXPRESSION - STEP 2: Does the patient need extra time, require an assistive device (such as augmentive communication syste m or a communication board), OR does s/he have mild difficulty expressing complex and abstract ideas (including mild dysarthria or mild word-find problems)? Yes. EXPRESSION - SCORE: 6-EDIN SOCIAL INTERACTION: SOCIAL INTERACTION - STEP 1: Does the patient require a helper to interact with others in social and therapeutic situations? No. SOCIAL INTERACTION - STEP 2: Does the patient need extra time in social situations, OR does s/he interact with staff, other patien ts, and family members ONLY in structured environments, OR does s/he require medication for social in teraction? Yes, patient requires medication for social interaction SOCIAL INTERACTION - SCORE: 6-EDIN PROBLEM SOLVING: Patient requires bed/chair alarms due to attempts to get up unassisted when helper is needed. PROBLEM SOLVING - STEP 1: How often do the bed/chair alarms go off? Occasionally - the alarms go off about 25% or less PROBLEM SOLVING - SCORE: 4-MIN MEMORY: MEMORY - STEP 1: How often do the bed/chair alarms go off? Occasionally - the alarms go off about 25% of the time or l ess MEMORY - SCORE: 4-MIN SIGNATURE PANEL: The following modified sections: Eating - Score, Grooming - Score, Bathing - Score, Dressing - Upper Body - Score, Dressing - Lower Body - Score, Toileting - Score, Bladder Management - Score, Bowel Man agement - Score, Transfers: Bed, Chair, Wheelchair - Score, Transfers: Toilet - Score, Transfers: Karin wer - Score, Transfers: Tub - Score, Locomotion: Walk - Score, Locomotion: Wheelchair - Score, Compre hension - Score, Expression - Score, Social Interaction - Score, Problem Solving - Score, Memory - Sc ore were [electronically] signed by Kathya Taylor RN on TueOct 26 2017 03:49:22 T-0500 ([facility] Day[facility] Time)
[2017-10-26] MEDS: LEVOTHYROXINE SOD 0.1 MG TAB PO SCH (05:09)
[2017-10-26] MEDS: LISINOPRIL 20 MG TAB PO SCH (08:00)
[2017-10-26] MEDS: FLUTICASONE (FLONASE) 50MCG NASAL SPRAY NAS SCH ×2 (08:24→20:41)
[2017-10-26] MEDS: HYDROCODONE/APAP 7.5/325 MG TAB PO PRN (08:24)
[2017-10-26] MEDS: GLIMEPIRIDE 2 MG TABLET PO SCH ×2 (08:24→16:30)
[2017-10-26] MEDS: CRANBERRY FRUIT EXTRACT 200 MG CAP PO SCH ×2 (08:24→20:41)
[2017-10-26] MEDS: FERROUS SULFATE 325 MG TAB PO SCH ×2 (08:25→20:40)
[2017-10-26] MEDS: GABAPENTIN 300 MG CAP PO SCH ×3 (08:25→20:40)
[2017-10-26] MEDS: PROMOD 30 ML DOSE PO SCH ×2 (08:26→20:39)
--- NOTE | 2017-10-26 15:12 | FAST ---
ENCOUNTER DATE AND TIME: 10/26/2017 08:00 (CDT) NAME GEOVANNA BUSBY DATE OF : 1930 DATE OF ADMISSION: 10/17/2017 15:42 (CDT) PHONE: AGE: 87 N# [id number] GENDER: Female ENCOUNTER PHYSICIAN: Dr. Dave Webber M.D. ADMISSION DIAGNOSIS: - Orthopaedic Disorders 08 - Femur (Shaft) Fracture (08.2) Left Femoral Neck Fracture. EATING: Activity did not occur on this shift EATING - SCORE: 0-UNK GROOMING: Activity did not occur on this shift GROOMING - SCORE: 0-UNK BATHING: Activity did not occur on this shift BATHING - SCORE: 0-UNK DRESSING - UPPER BODY: Activity did not occur on this shift Patient is not dressing in public clothing ARTICLES SCORE Total number of steps: 0 DRESSING - UPPER BODY - SCORE: 0-UNK DRESSING - LOWER BODY: Activity did not occur on this shift Patient is not dressing in public clothing ARTICLES SCORE Total number of steps: 0 DRESSING - LOWER BODY - SCORE: 0-UNK TOILETING: Activity did not occur on this shift TOILETING - SCORE: 0-UNK BLADDER MANAGEMENT: Activity did not occur on this shift BLADDER MANAGEMENT - SCORE: 7-IND BOWEL MANAGEMENT: Activity did not occur on this shift BOWEL MANAGEMENT - SCORE: 7-IND TRANSFERS: BED, CHAIR, WHEELCHAIR: TRANSFERS: BED, CHAIR, WHEELCHAIR - STEP 1: Does the patient require assistance with bed, chair, or wheelchair transfers? Yes. TRANSFERS: BED, CHAIR, WHEELCHAIR - STEP 2: Does the patient require the assistance of a helper? Yes. TRANSFERS: BED, CHAIR, WHEELCHAIR - STEP 3: How much assistance does the patient require from the helper? Only supervision TRANSFERS: BED, CHAIR, WHEELCHAIR - SCORE: 5-SUP TRANSFERS: TOILET: Activity did not occur on this shift TRANSFERS: TOILET - SCORE: 0-UNK TRANSFERS: SHOWER: Activity did not occur on this shift TRANSFERS: SHOWER - SCORE: 0-UNK TRANSFERS: TUB: Activity did not occur on this shift TRANSFERS: TUB - SCORE: 0-UNK LOCOMOTION: WALK: LOCOMOTION: WALK - STEP 1: Does the patient need help to walk 150 feet? Yes. LOCOMOTION: WALK - STEP 2: How much assistance does the patient require to walk a minimum of 150 feet? Only supervision, cuing, or coaxing LOCOMOTION: WALK - SCORE: 5-SUP LOCOMOTION: WHEELCHAIR: Activity did not occur on this shift LOCOMOTION: WHEELCHAIR - SCORE: 0-UNK LOCOMOTION: STAIRS: LOCOMOTION: STAIRS - STEP 1: Does the patient need help to go up and down 12 to 14 stairs? Yes. LOCOMOTION: STAIRS - STEP 2: How much assistance does the patient need from the helper to go a minimum of 12 to 14 stairs? Only in cidental help such as contact guarding or steadying LOCOMOTION: STAIRS - SCORE: 4-MIN COMPREHENSION: COMPREHENSION - SCORE: 0-UNK EXPRESSION EXPRESSION - SCORE: 0-UNK SOCIAL INTERACTION: SOCIAL INTERACTION - SCORE: 0-UNK PROBLEM SOLVING: PROBLEM SOLVING - SCORE: 0-UNK MEMORY: MEMORY - SCORE: 0-UNK SIGNATURE PANEL: The following modified sections: Transfers: Bed, Chair, Wheelchair - Score, Transfers: Toilet - Score , Locomotion: Walk - Score, Locomotion: Wheelchair - Score, Locomotion: Stairs - Score were [cesilia fish] signed by Anna Méndez PTA on TueOct 26 2017 14:12:35 GMT-0500 (Central Daylight Time)
--- NOTE | 2017-10-26 15:21 | FAST ---
SHIFT START DATE/TIME: 10/26/2017 07:00 (CDT) SHIFT END DATE/TIME: 10/26/2017 19:00 (CDT) NAME GEOVANNA BUSBY DATE OF : 1930 DATE OF ADMISSION: 10/17/2017 15:42 (CDT) PHONE: AGE: 87 [facility]# [id number] GENDER: Female ENCOUNTER PHYSICIAN: Dr. Dave Webber M.D. ADMISSION DIAGNOSIS: - Orthopaedic Disorders 08 - Femur (Shaft) Fracture (08.2) Left Femoral Neck Fracture. EATING: EATING - STEP 1: Does the patient require assistance when eating? Yes. EATING - STEP 2: Does the patient require the assistance of a helper? No, patient only requires an assistive device, O R s/he takes more than reasonable time to eat, OR there is a safety concern, OR s/he requires modifie d food consistency EATING - SCORE: 6-EDIN GROOMING: Comb/brush hair Oral care Wash, rinse, and dry face Wash, rinse, and dry hands GROOMING - STEP 1: Does the patient require assistance when grooming? Yes. GROOMING - STEP 2: Does the patient require the assistance of a helper? No. The patient only requires an assistive devic e, OR takes more than reasonable time to groom, OR there is a concern for safety as the patient groom s GROOMING - SCORE: 6-EDIN BATHING: Activity did not occur on this shift BATHING - SCORE: 0-UNK DRESSING - UPPER BODY: Activity did not occur on this shift ARTICLES SCORE Total number of steps: 0 DRESSING - UPPER BODY - SCORE: 0-UNK DRESSING - LOWER BODY: Activity did not occur on this shift ARTICLES SCORE Total number of steps: 0 DRESSING - LOWER BODY - SCORE: 0-UNK TOILETING: TOILETING - STEP 1: Does the patient require assistance with toileting? Yes. TOILETING - STEP 2: Does the patient require the assistance of a helper? Yes. TOILETING - STEP 3: How much assistance does the patient require from the helper? Hands-on assistance from the helper TOILETING - STEP 4: Of the 3 tasks: 1) Adjusting clothing prior to use, 2) Cleansing of perineal area, 3) Adjusting clot nolberto after use; How many tasks does the patient perform WITHOUT assistance of the helper? Three tasks with steadying assistance from the helper TOILETING - SCORE: 4-MIN BLADDER MANAGEMENT: BLADDER MANAGEMENT - STEP 1: Does the patient control the bladder completely and intentionally without equipment or devices or med ications, and is always continent? No. BLADDER MANAGEMENT - STEP 2: Does the patient require the assistance of a helper? No, patient requires and independently uses an a ssistive device, such as a urinal, bedpan, bedside commode, catheter, absorbent pad, or collecting de vice BLADDER MANAGEMENT - SCORE: 6-EDIN BOWEL MANAGEMENT: Activity did not occur on this shift BOWEL MANAGEMENT - SCORE: 7-IND TRANSFERS: BED, CHAIR, WHEELCHAIR: TRANSFERS: BED, CHAIR, WHEELCHAIR - STEP 1: Does the patient require assistance with bed, chair, or wheelchair transfers? Yes. TRANSFERS: BED, CHAIR, WHEELCHAIR - STEP 2: Does the patient require the assistance of a helper? Yes. TRANSFERS: BED, CHAIR, WHEELCHAIR - STEP 3: How much assistance does the patient require from the helper? Lifting of the legs TRANSFERS: BED, CHAIR, WHEELCHAIR - STEP 4: How many legs does the patient require the helper to lift? one leg TRANSFERS: BED, CHAIR, WHEELCHAIR - SCORE: 4-MIN TRANSFERS: TOILET: TRANSFERS: TOILET - STEP 1: Does the patient require assistance with toilet transfers? Yes. TRANSFERS: TOILET - STEP 2: Does the patient require the assistance of a helper? Yes. TRANSFERS: TOILET - STEP 3: How much assistance does the patient require from the helper? Patient performs half or more of the tr ansferring tasks TRANSFERS: TOILET - STEP 4: Does the patient need only incidental help such as contact guard or steadying during toilet transfer? Yes. TRANSFERS: TOILET - SCORE: 4-MIN TRANSFERS: SHOWER: Activity did not occur on this shift TRANSFERS: SHOWER - SCORE: 0-UNK TRANSFERS: TUB: Activity did not occur on this shift TRANSFERS: TUB - SCORE: 0-UNK LOCOMOTION: WALK: Activity did not occur on this shift LOCOMOTION: WALK - SCORE: 0-UNK LOCOMOTION: WHEELCHAIR: Activity did not occur on this shift LOCOMOTION: WHEELCHAIR - SCORE: 0-UNK COMPREHENSION: COMPREHENSION - SCORE: 0-UNK EXPRESSION EXPRESSION - SCORE: 0-UNK SOCIAL INTERACTION: SOCIAL INTERACTION - SCORE: 0-UNK PROBLEM SOLVING: PROBLEM SOLVING - SCORE: 0-UNK MEMORY: MEMORY - SCORE: 0-UNK SIGNATURE PANEL: The following modified sections: Eating - Score, Grooming - Score, Bathing - Score, Dressing - Upper Body - Score, Dressing - Lower Body - Score, Toileting - Score, Bladder Management - Score, Bowel Man agement - Score, Transfers: Bed, Chair, Wheelchair - Score, Transfers: Toilet - Score, Transfers: Karin wer - Score, Transfers: Tub - Score, Locomotion: Walk - Score, Locomotion: Wheelchair - Score, Compre hension - Score, Expression - Score, Social Interaction - Score, Problem Solving - Score, Memory - Sc ore were [electronically] signed by Kash Carrillo on TueOct 26 2017 14:21:42 GMT-0500 (Central Daylight Time)
[2017-10-26] MEDS: ENOXAPARIN 40 MG/0.4 ML SQ SCH (16:30)
[2017-10-26] MEDS: LORAZEPAM 0.5 MG TABLET PO PRN (20:41)
--- NOTE | 2017-10-27 03:19 | FAST ---
SHIFT START DATE/TIME: 10/26/2017 19:00 (CDT) SHIFT END DATE/TIME: 10/27/2017 07:00 (CDT) NAME GEOVANNA BUSBY DATE OF : 1930 DATE OF ADMISSION: 10/17/2017 15:42 (CDT) PHONE: AGE: 87 [facility]# [id number] GENDER: Female ENCOUNTER PHYSICIAN: Dr. Dave Webber M.D. ADMISSION DIAGNOSIS: - Orthopaedic Disorders 08 - Femur (Shaft) Fracture (08.2) Left Femoral Neck Fracture. EATING: Activity did not occur on this shift EATING - SCORE: 0-UNK GROOMING: Wash, rinse, and dry hands GROOMING - STEP 1: Does the patient require assistance when grooming? Yes. GROOMING - STEP 2: Does the patient require the assistance of a helper? Yes. GROOMING - STEP 3: How much assistance does the patient require from the helper? Only prior equipment preparation/set up from the helper GROOMING - SCORE: 5-SUP BATHING: Activity did not occur on this shift BATHING - SCORE: 0-UNK DRESSING - UPPER BODY: Patient is not dressing in public clothing ARTICLES SCORE Total number of steps: 0 DRESSING - UPPER BODY - SCORE: 0-UNK DRESSING - LOWER BODY: Patient is not dressing in public clothing ARTICLES SCORE Total number of steps: 0 DRESSING - LOWER BODY - SCORE: 0-UNK TOILETING: TOILETING - STEP 1: Does the patient require assistance with toileting? Yes. TOILETING - STEP 2: Does the patient require the assistance of a helper? Yes. TOILETING - STEP 3: How much assistance does the patient require from the helper? Only supervision TOILETING - SCORE: 5-SUP BLADDER MANAGEMENT: BLADDER MANAGEMENT - STEP 1: Does the patient control the bladder completely and intentionally without equipment or devices or med ications, and is always continent? No. BLADDER MANAGEMENT - STEP 2: Does the patient require the assistance of a helper? Yes. BLADDER MANAGEMENT - STEP 3: How much assistance does the patient require from the helper? Only supervision, stand-by, cuing, or c oaxing BLADDER MANAGEMENT - SCORE: 5-SUP BOWEL MANAGEMENT: Activity did not occur on this shift BOWEL MANAGEMENT - SCORE: 7-IND TRANSFERS: BED, CHAIR, WHEELCHAIR: TRANSFERS: BED, CHAIR, WHEELCHAIR - STEP 1: Does the patient require assistance with bed, chair, or wheelchair transfers? Yes. TRANSFERS: BED, CHAIR, WHEELCHAIR - STEP 2: Does the patient require the assistance of a helper? Yes. TRANSFERS: BED, CHAIR, WHEELCHAIR - STEP 3: How much assistance does the patient require from the helper? Only supervision TRANSFERS: BED, CHAIR, WHEELCHAIR - SCORE: 5-SUP TRANSFERS: TOILET: TRANSFERS: TOILET - STEP 1: Does the patient require assistance with toilet transfers? Yes. TRANSFERS: TOILET - STEP 2: Does the patient require the assistance of a helper? Yes. TRANSFERS: TOILET - STEP 3: How much assistance does the patient require from the helper? Only supervision, cuing, coaxing, OR he lp to set out transfer equipment or to lock brakes and/or lift foot rests TRANSFERS: TOILET - SCORE: 5-SUP TRANSFERS: SHOWER: Activity did not occur on this shift TRANSFERS: SHOWER - SCORE: 0-UNK TRANSFERS: TUB: Activity did not occur on this shift TRANSFERS: TUB - SCORE: 0-UNK LOCOMOTION: WALK: Activity did not occur on this shift LOCOMOTION: WALK - SCORE: 0-UNK LOCOMOTION: WHEELCHAIR: Activity did not occur on this shift LOCOMOTION: WHEELCHAIR - SCORE: 0-UNK COMPREHENSION: COMPREHENSION - STEP 1: Does the patient require help to understand complex and abstract ideas (such as current events, finan joseph, discharge planning, medical issues, relationships, etc)? No. COMPREHENSION - STEP 2: Does the patient need extra time, require an assistive device (such as glasses, hearing aids, or an a ugmentative communication system), OR does s/he have mild difficulty expressing complex and abstract ideas (including mild dysarthria or mild word-finding problems)? Yes. COMPREHENSION - SCORE: 6-EDIN EXPRESSION EXPRESSION - STEP 1: Does the patient require help expressing complex and abstract ideas (such as current events, finances , discharge planning, medical issues, relationships, etc)? No. EXPRESSION - STEP 2: Does the patient need extra time, require an assistive device (such as augmentive communication syste m or a communication board), OR does s/he have mild difficulty expressing complex and abstract ideas (including mild dysarthria or mild word-find problems)? Yes. EXPRESSION - SCORE: 6-EDIN SOCIAL INTERACTION: SOCIAL INTERACTION - STEP 1: Does the patient require a helper to interact with others in social and therapeutic situations? No. SOCIAL INTERACTION - STEP 2: Does the patient need extra time in social situations, OR does s/he interact with staff, other patien ts, and family members ONLY in structured environments, OR does s/he require medication for social in teraction? Yes, patient requires medication for social interaction SOCIAL INTERACTION - SCORE: 6-EDIN PROBLEM SOLVING: Patient requires bed/chair alarms due to attempts to get up unassisted when helper is needed. PROBLEM SOLVING - STEP 1: How often do the bed/chair alarms go off? Occasionally - the alarms go off about 25% or less PROBLEM SOLVING - SCORE: 4-MIN MEMORY: MEMORY - STEP 1: How often do the bed/chair alarms go off? Occasionally - the alarms go off about 25% of the time or l ess MEMORY - SCORE: 4-MIN SIGNATURE PANEL: The following modified sections: Eating - Score, Grooming - Score, Bathing - Score, Dressing - Upper Body - Score, Dressing - Lower Body - Score, Toileting - Score, Bladder Management - Score, Bowel Man agement - Score, Transfers: Bed, Chair, Wheelchair - Score, Transfers: Toilet - Score, Transfers: Karin wer - Score, Transfers: Tub - Score, Locomotion: Walk - Score, Locomotion: Wheelchair - Score, Compre hension - Score, Expression - Score, Social Interaction - Score, Problem Solving - Score, Memory - Sc ore were [electronically] signed by Emilee Katz RN on TueOct 27 2017 02:20:13 [facility]-0500 ([facility] Time)
[2017-10-27] MEDS: LEVOTHYROXINE SOD 0.1 MG TAB PO SCH (05:09)
[2017-10-27] MEDS: TRAMADOL HCL 50 MG TAB PO PRN ×2 (05:39→11:40)
[2017-10-27 06:01] LABS: Absolute Lymphocytes (CBC) 2.2 K/uL (0.7-4.9); Absolute Monocytes 0.7 K/uL (0.1-1.3); Absolute Neutrophil 3.1 K/uL (1.8-8.0); Basophils % 1.1 % (0-1.3); Eosinophils % 2.3 % (0-4.4); Hematocrit 30.9 % (36.0-45.0); Lymphocytes % 35.6 % (15.3-44.8); MCV 90.3 fL (80-100); MPV 8.1 fL (7.6-11.3); Monocytes % 11.4 % (3.3-12.3); RBC Red Blood Cell Count 3.42 M/uL (3.86-4.86)
[2017-10-27 06:16] LABS: Albumin 2.7 g/dL (3.4-5.0); Magnesium 2.5 mg/dL (1.8-2.4); Prealbumin 16.7 mg/dL (20-40)
[2017-10-27] MEDS: FLUTICASONE (FLONASE) 50MCG NASAL SPRAY NAS SCH (07:47)
[2017-10-27] MEDS: GLIMEPIRIDE 2 MG TABLET PO SCH (07:53)
[2017-10-27] MEDS: HYDROCODONE/APAP 7.5/325 MG TAB PO PRN (07:53)
[2017-10-27] MEDS: CRANBERRY FRUIT EXTRACT 200 MG CAP PO SCH (07:53)
[2017-10-27] MEDS: FERROUS SULFATE 325 MG TAB PO SCH (07:54)
[2017-10-27] MEDS: LISINOPRIL 20 MG TAB PO SCH (07:55)
[2017-10-27] MEDS: PROMOD 30 ML DOSE PO SCH (07:55)
[2017-10-27] MEDS: GABAPENTIN 300 MG CAP PO SCH (07:59)
--- NOTE | 2017-10-31 17:11 | FAST ---
ENCOUNTER DATE AND TIME: 10/26/2017 08:00 (CDT) NAME GEOVANNA BUSBY DATE OF : 1930 DATE OF ADMISSION: 10/17/2017 15:42 (CDT) PHONE: AGE: 87 N# [id number] GENDER: Female ENCOUNTER PHYSICIAN: Dr. Dave eWbber M.D. ADMISSION DIAGNOSIS: - Orthopaedic Disorders 08 - Femur (Shaft) Fracture (08.2) Left Femoral Neck Fracture. EATING: EATING - STEP 1: Does the patient require assistance when eating? No. EATING - SCORE: 7-IND GROOMING: Comb/brush hair Oral care Wash, rinse, and dry face Wash, rinse, and dry hands GROOMING - STEP 1: Does the patient require assistance when grooming? No. GROOMING - SCORE: 7-IND BATHING: Abdomen Buttocks Chest Left arm Left lower leg and foot Left upper leg Perineal area Right arm Right lower leg and foot Right upper leg BATHING - STEP 1: Does the patient require assistance when bathing? Yes. BATHING - STEP 2: Does the patient require the assistance of a helper? No. The patient only requires an assistive devic e such as a bath blake, OR the patient takes more than reasonable time to bathe, OR there is a concern for safety such as regulating water temperature as the patient bathes. BATHING - SCORE: 6-EDIN DRESSING - UPPER BODY: ARTICLES SCORE Total number of steps: 0 DRESSING - UPPER BODY - STEP 1: Does the patient require help when dressing above the waist? No. DRESSING - UPPER BODY - SCORE: 7-IND DRESSING - LOWER BODY: Slip-on shoe - Left foot (one step) Sock - Right foot (one step) Underwear (three steps) ARTICLES SCORE Total number of steps: 5 DRESSING - LOWER BODY - STEP 1: Does the patient require help when dressing below the waist? Yes. DRESSING - LOWER BODY - STEP 2: Does the patient require the assistance of a helper? No. Patient requires an assistive device such as a software developer. OR s/he takes more than reasonable time as s/he dresses the lower body, OR there is a con cern for safety when s/he dresses the lower body DRESSING - LOWER BODY - SCORE: 6-EDNI TOILETING: TOILETING - STEP 1: Does the patient require assistance with toileting? Yes. TOILETING - STEP 2: Does the patient require the assistance of a helper? No. TOILETING - SCORE: 6-EDIN BLADDER MANAGEMENT: Activity did not occur on this shift BLADDER MANAGEMENT - SCORE: 7-IND BOWEL MANAGEMENT: Activity did not occur on this shift BOWEL MANAGEMENT - SCORE: 7-IND TRANSFERS: BED, CHAIR, WHEELCHAIR: Patient requires more than one helper and/or the use of a mechanical lift is utilized TRANSFERS: BED, CHAIR, WHEELCHAIR - SCORE: 1-DEP TRANSFERS: TOILET: TRANSFERS: TOILET - STEP 1: Does the patient require assistance with toilet transfers? Yes. TRANSFERS: TOILET - STEP 2: Does the patient require the assistance of a helper? No. Patient only requires an assistive device metz ch as a grab bar or special seat, OR s/he takes more than reasonable time to perform toilet transfers , OR there is a safety concern when s/he performs toilet transfers. TRANSFERS: TOILET - SCORE: 6-EDIN TRANSFERS: SHOWER: TRANSFERS: SHOWER - STEP 1: Does the patient require assistance with shower transfers? Yes. TRANSFERS: SHOWER - STEP 2: Does the patient require the assistance of a helper? No. The patient only uses an assistive device, t akes more than reasonable time, OR there is a concern for safety when s/he performs transfers. TRANSFERS: SHOWER - SCORE: 6-EDIN TRANSFERS: TUB: Activity did not occur on this shift TRANSFERS: TUB - SCORE: 0-UNK LOCOMOTION: WALK: Activity did not occur on this shift LOCOMOTION: WALK - SCORE: 0-UNK LOCOMOTION: WHEELCHAIR: Activity did not occur on this shift LOCOMOTION: WHEELCHAIR - SCORE: 0-UNK LOCOMOTION: STAIRS: Activity did not occur on this shift LOCOMOTION: STAIRS - SCORE: 0-UNK COMPREHENSION: COMPREHENSION: TYPE: Both COMPREHENSION - STEP 1: Does the patient require help to understand complex and abstract ideas (such as current events, finan joseph, discharge planning, medical issues, relationships, etc)? No. COMPREHENSION - STEP 2: Does the patient need extra time, require an assistive device (such as glasses, hearing aids, or an a ugmentative communication system), OR does s/he have mild difficulty expressing complex and abstract ideas (including mild dysarthria or mild word-finding problems)? Yes. COMPREHENSION - SCORE: 6-EDIN EXPRESSION EXPRESSION: TYPE: Both EXPRESSION - STEP 1: Does the patient require help expressing complex and abstract ideas (such as current events, finances , discharge planning, medical issues, relationships, etc)? No. EXPRESSION - STEP 2: Does the patient need extra time, require an assistive device (such as augmentive communication syste m or a communication board), OR does s/he have mild difficulty expressing complex and abstract ideas (including mild dysarthria or mild word-find problems)? Yes. EXPRESSION - SCORE: 6-EDIN SOCIAL INTERACTION: SOCIAL INTERACTION - STEP 1: Does the patient require a helper to interact with others in social and therapeutic situations? No. SOCIAL INTERACTION - STEP 2: Does the patient need extra time in social situations, OR does s/he interact with staff, other patien ts, and family members ONLY in structured environments, OR does s/he require medication for social in teraction? Yes, patient needs extra time SOCIAL INTERACTION - SCORE: 6-EDIN PROBLEM SOLVING: PROBLEM SOLVING - STEP 1: Does the patient need help to solve complex problems such as managing a checking account or confronti ng interpersonal problems? No. PROBLEM SOLVING - STEP 2: Does the patient require extra time to make decisions or solve problems, OR does s/he have slight dif ficulty reading, initiating, or self-correcting in unfamiliar situations? Yes, patient needs extra ti me. PROBLEM SOLVING - SCORE: 6-EDIN MEMORY: MEMORY - STEP 1: Does the patient need help to remember frequently encountered people, daily routines, and executing r equests? No. MEMORY - STEP 2: Does the patient have slight difficulty recognizing frequently encountered people, daily routines, or executing requests without the need for repetition or using self-initiated or environmental cues to remember? Yes. MEMORY - SCORE: 6-EDIN SIGNATURE PANEL: The following modified sections: Memory - Score, Problem Solving - Score, Social Interaction - Score, Expression - Score, Comprehension - Score, Transfers: Tub - Score, Transfers: Shower - Score, Transf ers: Toilet - Score, Transfers: Bed, Chair, Wheelchair - Score, Toileting - Score, Dressing - Lower B [place] - Score, Dressing - Upper Body - Score, Bathing - Score, Grooming - Score, Eating - Score were [e lectronically] signed by Mariluz Alan OT on TueOct 31 2017 16:11:16 GMT-0500 ([facility])
--- NOTE | 2017-11-23 15:53 | R.DS ---
FACILITY [facility] MR# [id number] NAME GEOVANNA BUSBY AD[address]ESS [address] [place] [address] [address] [id number] PHONE DATE OF 1930 AGE 87 SSN# [id number] GENDER Female DEXTERITY Right-handed MARITAL STATUS RACE White ENCOUNTER PHYSICIAN Dr. Dave Webber M.D. REFERRING DOCTOR [facility] REFERRING FACILITY [facility] DISCHARGE DIAGNOSIS: - Orthopaedic Disorders 08 - Femur (Shaft) Fracture (08.2) Left Femoral Neck Fracture. 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 is a 87 yo Right-handed white female.Her impairment category is Orthopaedic Disorders 08 - Femur (Shaft) Fracture (08.2).Pre-morbidly, Pt. was independent/mod-I in Sphincter Control, Communication, and Social Cognition; and she had good Sphincter Control.Currently, she has deficits of Safety Aware ness, Transfers Control, Balance, Self-Care, Locomotion, and Endurance.Pt. is now referred to [facility] for acute in-patient rehabilitation in order to maximize patient's functio nal independence in activities of daily living, strength, ROM, and mobility.- Rehab Goal Patient has realistic goal of being discharged at assistance level 6-Leatha to reside at Home with Fam boyd/Relatives. HOSPITAL COURSE: On 10/19/2017 the following precautions were removed for the patient: Fall Precaution - Bed and gregory r alarm. On 10/14/2017 the following precautions were added for the patient: Fall Precaution - Bed and chair a larm. On 10/18/2017 the following precautions were added for the patient: Fall Precaution - Bed and chair alarm. On 10/20/2017 the following precautions were added for the patient: Fall Precaution - Bed and chair alarm. The following precautions were removed for the patient: Fall Precaution - Bed and chair alarm, and F all Precaution - Bed and chair alarm. On 10/14/2017 the following precautions were added for the patient: Weight Bearing Precaution - WBAT left LE. On 10/18/2017 the following precautions were added for the patient: Weight Bearing Precaution - WBAT left LE. On 10/19/2017 the following precautions were removed for the patient: Weight Bearing Precaution - WB AT left LE. On 10/20/2017 the following precautions were added for the patient: Weight Bearing Precaution - WBAT left LE. DIET - LIQUID TEXTURE: On 10/14/2017 Pt was upgraded to Regular Diet - Liquid Texture. DIET - SOLID TEXTURE: On 10/14/2017 Pt was upgraded to Regular Diet - Solid Texture. DIET TYPE: On 10/14/2017 Pt was upgraded to Regular Diet Type. FALL PRECAUTION: TUBE FEED: On 10/14/2017 Pt was changed to N/A Tube Feed. WEIGHT BEARING PRECAUTION: DISCHARGE PHYSICAL EXAM - Gen Alert and awake Lying in bed No apparent distress Oriented to: person, time, and place - Skin No skin breakdown. Normacephalic - Eyes No abnormalities - ENMT No abnormalities - Neck No abnormalities - CVS RRR - Chest Clear - Abd Soft - GI Non distended Deferred - No abnormalities - Ext No significant edema - MSK Unremarkable - Neuro No focal deficits - Psych No abnormalities FUNCTIONAL STATUS: - Self-Care A. Eating 5-sup 7-Ind B. Grooming 5-sup 7-Ind C. Bathing 5-sup 6-Leatha D. Dressing - Upper 5-sup 7-Ind E. Dressing - Lower 5-sup 6-Leatha F. Toileting 4-Susie 5-sup - Sphincter Control G: Bladder control 7-Ind 7-Ind H: Bowel control 7-Ind 7-Ind - Transfers Control I. Bed/Chair/Wheelchair 4-Susie 6-Leatha J. Toilet 4-Susie 6-Leatha K. Tub/Shower 0-ADNO 6-Leatha - Locomotion L. Walk/Wheelchair (C) 4-Susie 5-sup L. Walk/Wheelchair (W) 4-Susie 5-sup M. Stairs 0-ADNO 5-sup - Communication N. Comprehension (B) 6-Leatha 6-Leatha O. Expression (B) 6-Leatha 6-Leatha - Social Cognition P. Social Interaction 6-Leatha 6-Leatha Q. Problem Solving 6-Leatha 6-Leatha R. Memory 6-Leatha 6-Leatha - Endurance Fair - Balance Fair - Safety Awareness Fair DISCHARGE INSTRUCTIONS: - N/A Lovenox 30 mg sq daily. DISCHARGE PLAN, FOLLOW UP CARE PROVISIONS: - Estimated Length of Stay (days) 14. - Consensus on plan Discharge plan has been discussed with primary caregiver. Patient/Family is in agreement with the tara n. Primary caregiver is in agreement with the plan. - Patient/Family Goals Return home with assistance. - Planned Living Setting Upon Discharge Home, to live with Family/Relatives. SIGNATURE PANEL: (CDT)
== END 2017-10-27 12:20 | disposition home or self-care (01) | DRG 561 ==
LOC: 5TH 15:42
PROVIDERS: ADMIT Psychiatry & Neurology Neurology with Special Qualifications in Child Neurology; ATTEND Psychiatry & Neurology Neurology with Special Qualifications in Child Neurology
DX: S72.002D Fracture of unspecified part of neck of left femur, subsequent encounter for closed fracture with routine healing (principal); E11.40 Type 2 diabetes mellitus with diabetic neuropathy, unspecified; M10.9 Gout, unspecified; E03.9 Hypothyroidism, unspecified; Z85.3 Personal history of malignant neoplasm of breast
CPT/HCPCS: 36415; 80048; 81001; 82040; 82962; 83735; 84134; 85025; 87077; 87086; 87088; 87186; J1650

== ENCOUNTER 2017-11-12 10:01 | Emergency (ER) | payer OTHER ==
--- NOTE | 2017-11-12 11:31 | RAD REPORT ---
EXAM DESCRIPTION: RAD - Hip Left 2 View - 11/12/2017 11:22 am CLINICAL HISTORY: Left hip pain FINDINGS: No fracture or dislocation is seen. A left hip arthroplasty has been performed. The prosthesis is in good position without evidence of lo osening. The bones are osteoporotic.
--- NOTE | 2017-11-12 13:02 | RAD REPORT ---
EXAM DESCRIPTION: CT - Hip Left W Con - 11/12/2017 12:43 pm CLINICAL HISTORY: Left hip pain/left leg pain. Left hip arthroplasty October 12, 2017 COMPARISON: None. TECHNIQUE: Computed axial tomography of the left hip and left femur was obtained with coronal and sa gittal reconstruction. 50 cc of contrast was given All CT scans are performed using dose optimization technique as appropriate and may include automated exposure control or mA/KV adjustment according to patient size. FINDINGS: Postsurgical changes of a left hip arthroplasty are present. The prosthesis is in good pos ition without evidence of loosening or infection. No fracture or dislocation is seen. An approximately 10 x 4 centimeter low-density fluid collection is present within the left gluteus mu scle. It does not contain air bubbles. A significant joint effusion is not seen. IMPRESSION: Left hip arthroplasty 10 x 4 centimeter fluid collection within the left gluteus muscle probably representing a subacute he matoma. An abscess is considered less likely. This should be correlated clinically with appropriate l ab values
[2017-11-12] MEDS ORDERED: NA CHLORIDE 0.9% 1,000 ML ONE (13:58)
--- NOTE | 2017-11-12 14:12 | RAD REPORT ---
EXAM DESCRIPTION: CT - Lower Extremity W/ Cont - 11/12/2017 1:03 pm CLINICAL HISTORY: Left hip pain/left leg pain. Left hip arthroplasty October 12, 2017 COMPARISON: None. TECHNIQUE: Computed axial tomography of the left hip and left femur was obtained with coronal and sagittal reconstruction. 50 cc of contrast was given All CT scans are performed using dose optimization technique as appropriate and may include automated exposure control or mA/KV adjustment according to patient size. FINDINGS: Postsurgical changes of a left hip arthroplasty are present. The prosthesis is in good po sition without evidence of loosening or infection. No fracture or dislocation is seen. An approximately 10 x 4 centimeter low-density fluid collection is present within the left gluteus mu scle. It does not contain air bubbles. A significant joint effusion is not seen. IMPRESSION: Left hip arthroplasty 10 x 4 centimeter fluid collection within the left gluteus muscle probably representing a subacute he matoma. An abscess is considered less likely. This should be correlated clinically and with appropria te lab values
[2017-11-12 14:41] LABS: MCH 29.8 pg (27.0-35.0); MCV 90.4 fL (80-100); MPV 8.3 fL (7.6-11.3); RBC Red Blood Cell Count 3.54 M/uL (3.86-4.86)
[2017-11-12 14:52] LABS: Protime INR 1.19
[2017-11-12 14:54] LABS: Potassium 4.3 mmol/L (3.5-5.1)
[2017-11-12 14:56] LABS: ALT/SGPT 18 U/L (12-78); AST/SGOT 21 U/L (15-37); Albumin 3.2 g/dL (3.4-5.0); Alkaline Phosphatase 96 U/L (45-117); Bilirubin Direct < 0.1 mg/dL (0-0.2); Bilirubin Total 0.2 mg/dL (0.2-1.0); Protein, Total 6.8 g/dL (6.4-8.2)
[2017-11-12 15:06] LABS: Urine Blood NEGATIVE (NEG); Urine Glucose NEGATIVE (NEG); Urine Protein NEGATIVE (NEG); Urine Specific Gravity 1.015 (1.005-1.030)
--- NOTE | 2017-11-12 15:24 | ER ---
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 Transition of care: patient was not received from another setting of care. Onset of symptoms was November 12, 2017. Initial Sepsis Screen: Does the patient meet any 2 criteria? No. Patient's initial sepsis screen is negative. Does the patient have a suspected source of infection? No. Patient's initial sepsis screen is negative. Care prior to arrival: Medication(s) given:. 10:10 Method Of Arrival: EMS: [facility] em 10:10 Risk Assessment: Do you want to hurt yourself or someone else? Patient reports no em desire to harm self or others. 10:26 Acuity: DARWIN 4 iw Historical: - Allergies: 10:15 PENICILLINS; em 10:15 Sulfa (Sulfonamide Antibiotics); em - PMHx: 10:15 Diabetes - NIDDM; Hyperlipidemia; Hypertension; em - Immunization history:: Adult Immunizations up to date. - Social history:: Smoking status: Patient/guardian denies using tobacco. - Ebola Screening: : Patient denies exposure to infectious person Patient denies travel to an Ebola-affected area in the 21 days before illness onset. Screenin:16 Abuse screen: Denies threats or abuse. Nutritional screening: No deficits noted. em Tuberculosis screening: No symptoms or risk factors identified. Fall Risk Fall in past 12 months (25 points). Ambulatory Aid- Crutches/Cane/Walker (15 pts). Gait- Impaired (20 pts.). Total Valle Fall Scale indicates High Risk Score (45 or more points). Fall prevention measures have been instituted. Side Rails Up X 2. Assessment: 10:18 General: Appears in no apparent distress. comfortable, Behavior is calm, cooperative. em Pain: Complains of pain in left hip Pain radiates to left leg Pain currently is 8 out of 10 on a pain scale. Pain began suddenly. Neuro: Level of Consciousness is awake, alert, obeys commands, Oriented to person, place, time, situation. Cardiovascular: Capillary refill < 3 seconds Patient's skin is warm and dry. Respiratory: Airway is patent Respiratory effort is even, unlabored, Respiratory pattern is regular, symmetrical. Derm: Skin is intact, Skin is pink, warm \T\ dry. Musculoskeletal: Range of motion: limited in left hip Tenderness present in left hip Reports pain in left hip. Injury Description: injured hip on October 12, no recent trauma. 10:31 Reassessment: Patient appears in no apparent distress at this time. I agree with above iw assessment by Ruben Thomas LVN. 11:00 Reassessment: Patient appears in no apparent distress at this time. Patient is alert, em oriented x 3, equal unlabored respirations, skin warm/dry/pink. pt daughter request pain medication for pt, Dr. Chapin notified, pt will take home medication. 11:31 Reassessment: Patient appears in no apparent distress at this time. Patient and/or em family updated on plan of care and expected duration. Pain level reassessed. Patient is alert, oriented x 3, equal unlabored respirations, skin warm/dry/pink. Patient states feeling better. 13:00 Reassessment: Patient appears in no apparent distress at this time. Patient and/or em family updated on plan of care and expected duration. Pain level reassessed. Patient is alert, oriented x 3, equal unlabored respirations, skin warm/dry/pink. request to use restroom, assisted with bedpan, tolerated well. 14:00 Reassessment: Patient appears in no apparent distress at this time. Patient and/or em family updated on plan of care and expected duration. Pain level reassessed. Patient is alert, oriented x 3, equal unlabored respirations, skin warm/dry/pink. 14:58 Reassessment: Patient and/or family updated on plan of care and expected duration. Pain em level reassessed. Patient is alert, oriented x 3, equal unlabored respirations, skin warm/dry/pink. Patient states feeling better. 15:30 Reassessment: Patient appears in no apparent distress at this time. request to eat em crackers and juice, pt tolerated well. 15:59 Reassessment: Patient appears in no apparent distress at this time. Patient and/or em family updated on plan of care and expected duration. Pain level reassessed. Patient is alert, oriented x 3, equal unlabored respirations, skin warm/dry/pink. assisted to wheelchair with gait belt, pt tolerated well, instructed to come back if pain is intolerable Patient states feeling better. Vital Signs: 10:13 BP 122 / 62; Pulse 96; Resp 16; Temp 98.3(O); Pulse Ox 100% on R/A; Weight 68.04 kg; em Height 5 ft. 6 in. (167.64 cm); Pain 8/10; 11:31 BP 125 / 47; Pulse 68; Resp 16; Pulse Ox 99% on R/A; em 13:45 BP 112 / 50; Pulse 63; Resp 16; Pulse Ox 98% on R/A; mh5 14:49 BP 127 / 55; Pulse 68; Resp 15; Pulse Ox 99% on R/A; mh5 15:45 BP 143 / 61; Pulse 68; Resp 16; Pulse Ox 100% on R/A; em 10:13 Body Mass Index 24.21 (68.04 kg, 167.64 cm) em ED Course: 10:02 Patient arrived in ED. hj 10:03 Ayan Chapin MD is Attending Physician. kdr 10:10 Ruben Thomas LVN is Primary Nurse. em 10:13 Arm band placed on. em 10:16 Patient has correct armband on for positive identification. Bed in low position. Call em light in reach. Adult w/ patient. 10:26 Triage completed. iw 11:17 Hip Left 2 View XRAY In Process Unspecified. EDMS 12:01 Side rails up X2. Warm blanket given. Pulse ox on. NIBP on. mh5 12:01 Missed attempt(s): 22 gauge in left antecubital area. mh5 12:13 Inserted saline lock: 22 gauge in left antecubital area, using aseptic technique. em 12:41 CT completed. Patient tolerated procedure well. Patient moved back from CT. cw1 12:43 Hip Left W Con In Process Unspecified. EDMS 13:01 Lower Extremity W/ Cont In Process Unspecified. EDMS 13:37 Attending Physician role handed off by Ayan Chapin MD [facility] 13:37 Torres Shafer MD is Attending Physician. [facility] 15:23 Negrito Moore MD is Referral Physician. [facility] 16:02 No provider procedures requiring assistance completed. IV discontinued, intact, em bleeding controlled, No redness/swelling at site. Pressure dressing applied. Administered Medications: 14:32 Drug: NS 0.9% 1000 ml Route: IV; Rate: 125 ml/hr; Site: left antecubital; em 16:03 Follow up: IV Status: Order to discontinue infusion; IV Intake: 260ml em Intake: 16:03 IV: 260ml; Total: 260ml. em Outcome: 15:23 Discharge ordered by . [facility] 16:02 Discharged to home via wheelchair. em 16:02 Condition: good 16:02 Discharge instructions given to patient, Instructed on discharge instructions, follow up and referral plans. medication usage, Demonstrated understanding of instructions, follow-up care, medications, Prescriptions given X 1. 16:05 Patient left the ED. em Signatures: Dispatcher [employer] [facility] Torres Shafer MD MD cha Rittger, Kevin, MD MD kdr Munoz, Edgar, MEDICAL OFFICE TECHNOLOGIST MEDICAL OFFICE TECHNOLOGIST em Carmen Lechuga, RN Karlee Garza 1 Joseph España, BERNABE RN Antoinette Nash [facility] Corrections: (The following items were deleted from the chart) 10:18 10:10 Presenting complaint: EMS states: called out for left hip pain, denies trauma, em had recent hip sx on October 12 after falling in bathroom, pain radiates down left left, took 0.[address] [employer] em
--- NOTE | 2017-11-12 15:24 | EDPHYS ---
Physician Documentation [facility] Name: Aide Hauser Age: 87 yrs Sex: Female : 1930 Arrival Date: 11/12/2017 Time: 10:02 Bed 20 Private MD: RAEANN Physician Torres Shafer HPI: 11/12 12:41 This 87 yrs old Female presents to ER via EMS with complaints of Hip Pain. kdr 12:42 The patient or guardian reports decreased range of motion, deformity, an injury, pain, kdr possible dislocation, swelling, weakness. that occurred at home, sustained from a fall, The patient is not able to ambulate. Patient is not able to bear weight. There is no radiation of the patient's discomfort. The patient had hip surgery 10/12/[address] Perez. Since then, she has had several falls and has had worsening pain in her left hip and thigh. She currently has difficulty moving her left left at the hip. The foot is internally rotated with no shortening. . The complaints affect the abdomen, left hip and left gluteal fold. Onset: The symptoms/episode began/occurred gradually, 1 month(s) ago, Over the last few weeks she has fallen several times. Modifying factors: The symptoms are alleviated by nothing, remaining still, the symptoms are aggravated by any movement, external rotation, flexion, weight bearing. Associated signs and symptoms: The patient has no apparent associated signs or symptoms. Modifying factors: The patient symptoms are alleviated by remaining still, the patient symptoms are aggravated by activity, movement. Associated signs and symptoms: Pertinent positives: None. Severity of symptoms: At their worst the symptoms were moderate, in the emergency department the symptoms are actually worse. Historical: - Allergies: 10:15 PENICILLINS; em 10:15 Sulfa (Sulfonamide Antibiotics); em - PMHx: 10:15 Diabetes - NIDDM; Hyperlipidemia; Hypertension; em - Immunization history:: Adult Immunizations up to date. - Social history:: Smoking status: Patient/guardian denies using tobacco. - Ebola Screening: : Patient denies exposure to infectious person Patient denies travel to an Ebola-affected area in the 21 days before illness onset. ROS: 12:42 Constitutional: Negative for fever, chills, and weight loss, Eyes: Negative for injury, kdr pain, redness, and discharge, Neck: Negative for injury, pain, and swelling, Cardiovascular: Negative for chest pain, palpitations, and edema, Respiratory: Negative for shortness of breath, cough, wheezing, and pleuritic chest pain, Abdomen/GI: Negative for abdominal pain, nausea, vomiting, diarrhea, and constipation, Back: Negative for injury and pain, : Negative for injury, bleeding, discharge, and swelling, Skin: Negative for injury, rash, and discoloration, Neuro: Negative for headache, weakness, numbness, tingling, and seizure activity. Psych: Negative for depression, anxiety, suicide ideation, homicidal ideation, and hallucinations, Allergy/Immunology: Negative for hives, rash, and allergies, Endocrine: Negative for neck swelling, polydipsia, polyuria, polyphagia, and marked weight changes, Hematologic/Lymphatic: Negative for swollen nodes, abnormal bleeding, and unusual bruising. 12:42 MS/extremity: Positive for injury or acute deformity, abrasion, decreased range of motion, pain, tenderness, of the abdomen and left hip. Exam: 12:42 Constitutional: This is a well developed, well nourished patient who is awake, alert, kdr and in no acute distress. Head/Face: Normocephalic, atraumatic. Eyes: Pupils equal round and reactive to light, extra-ocular motions intact. Lids and lashes normal. Conjunctiva and sclera are non-icteric and not injected. Cornea within normal limits. Periorbital areas with no swelling, redness, or edema. Neck: Trachea midline, no thyromegaly or masses palpated, and no cervical lymphadenopathy. Supple, full range of motion without nuchal rigidity, or vertebral point tenderness. No Meningismus. Chest/axilla: Normal chest wall appearance and motion. Nontender with no deformity. No lesions are appreciated. Cardiovascular: Regular rate and rhythm with a normal S1 and S2. No gallops, murmurs, or rubs. Normal PMI, no JVD. No pulse deficits. Respiratory: Lungs have equal breath sounds bilaterally, clear to auscultation and percussion. No rales, rhonchi or wheezes noted. No increased work of breathing, no retractions or nasal flaring. Abdomen/GI: Soft, non-tender, with normal bowel sounds. No distension or tympany. No guarding or rebound. No evidence of tenderness throughout. Back: No spinal tenderness. No costovertebral tenderness. Full range of motion. Skin: Warm, dry with normal turgor. Normal color with no rashes, no lesions, and no evidence of cellulitis. Neuro: Awake and alert, GCS 15, oriented to person, place, time, and situation. Cranial nerves II-XII grossly intact. Motor strength 5/5 in all extremities. Sensory grossly intact. Cerebellar exam normal. Normal gait. Psych: Awake, alert, with orientation to person, place and time. Behavior, mood, and affect are within normal limits. 12:42 Musculoskeletal/extremity: Extremities: grossly normal except: noted in the left leg: Well healing incision to the left hip. The patient has pain to palpation at the left greater trochanter and left lateral thigh, ROM: limited active range of motion, in the left leg, limited passive range of motion, in the left leg, Circulation is intact in all extremities. Sensation intact. DVT Exam: no pain, no swelling, no tenderness, negative Homans' sign noted on exam, no appreciated bluish discoloration, no erythema, no increased warmth. Vital Signs: 10:13 BP 122 / 62; Pulse 96; Resp 16; Temp 98.3(O); Pulse Ox 100% on R/A; Weight 68.04 kg; em Height 5 ft. 6 in. (167.64 cm); Pain 8/10; 11:31 BP 125 / 47; Pulse 68; Resp 16; Pulse Ox 99% on R/A; em 13:45 BP 112 / 50; Pulse 63; Resp 16; Pulse Ox 98% on R/A; mh5 14:49 BP 127 / 55; Pulse 68; Resp 15; Pulse Ox 99% on R/A; mh5 15:45 BP 143 / 61; Pulse 68; Resp 16; Pulse Ox 100% on R/A; em 10:13 Body Mass Index 24.21 (68.04 kg, 167.64 cm) em MDM: 13:08 Physician consultation: Cj Lim MD was called at 13:09. Physician consultation: elysia Moore MD was called at 13:09, Left a message with both Dr. Moore and Dr. Lim. 13:39 Data reviewed: vital signs, nurses notes, lab test result(s), radiologic studies, CT aftab scan. 13:43 Patient medically screened. aftab 11/12 13:27 Order name: CBC w/o diff; Complete Time: 15:19 kdr 11/12 13:27 Order name: Chem 7; Complete Time: 15:19 kdr 11/12 13:38 Order name: LFT's; Complete Time: 15:19 aftab 11/12 13:38 Order name: PT-INR; Complete Time: 15:19 aftab 11/12 13:38 Order name: Ptt, Activated; Complete Time: 15:19 aftab 11/12 13:38 Order name: Urine Culture [facility] 11/12 10:31 Order name: Hip Left 2 View XRAY; Complete Time: 12:56 kdr 11/12 11:49 Order name: Hip Left W Con; Complete Time: 13:05 EDMS 11/12 11:49 Order name: Lower Extremity W/ Cont; Complete Time: 14:23 EDNM 11/12 13:38 Order name: Urine Dipstick-Ancillary (obtain specimen); Complete Time: 13:52 aftab 11/12 14:29 Order name: Urine Dipstick--Ancillary (enter results); Complete Time: 15:19 11/12 15:22 Order name: PO challenge: juice; Complete Time: 15:27 [facility] Administered Medications: 14:32 Drug: NS 0.9% 1000 ml Route: IV; Rate: 125 ml/hr; Site: left antecubital; em 16:03 Follow up: IV Status: Order to discontinue infusion; IV Intake: 260ml em Disposition: 11/12/17 15:23 Discharged to Home. Impression: Pain in left hip - 10x 4 cm hematoma, Anemia, unspecified. - Condition is Fair. - Discharge Instructions: Hematoma, Hematoma, [id number], Fall Prevention and Home Safety, Musculoskeletal Pain, Fall Prevention and Home Safety, [id number], Hip Pain. - Prescriptions for Tylenol- Codeine #3 300-30 mg Oral Tablet - take 1 tablet by ORAL route every 6 hours As needed; 30 tablet. - Medication Reconciliation Form, Thank You Letter, Antibiotic Education, Prescription Opioid Use form. - Follow up: Private Physician; When: 2 - 3 days; Reason: Recheck today's complaints, Continuance of care, Re-evaluation by your physician. Follow up: Negrito Moore; When: 2 - 3 days; Reason: Recheck today's complaints, Continuance of care, Re-evaluation by your physician. - Problem is new. - Symptoms have improved. Signatures: Dispatcher [employer] Torres Richmond MD MD cha Rittger, Kevin, MD MD kdr Munoz, Edgar, COURT ORDERLY COURT ORDERLY em Corrections: (The following items were deleted from the chart) 16:05 15:23 11/12/2017 15:23 Discharged to Home. Impression: Pain in left hip - 10x 4 cm em hematoma; Anemia, unspecified. Condition is Fair. Discharge Instructions: Hematoma, Hematoma, [id number], Musculoskeletal Pain, Hip Pain, Fall Prevention and Home Safety, Fall Prevention and Home Safety, [id number]. Prescriptions for Tylenol-Codeine #3 300-30 mg Oral Tablet - take 1 tablet by ORAL route every 6 hours As needed; 30 tablet. and Forms are Medication Reconciliation Form, Thank You Letter, Antibiotic Education, Prescription Opioid Use. Follow up: Private Physician; When: 2 - 3 days; Reason: Recheck today's complaints, Continuance of care, Re-evaluation by your physician. Follow up: Negrito Moore; When: 2 - 3 days; Reason: Recheck today's complaints, Continuance of care, Re-evaluation by your physician. Problem is new. Symptoms have improved. aftab
== END 2017-11-12 16:05 | disposition home or self-care (01) ==
LOC: ER 10:01
DX: S70.02XA Contusion of left hip, initial encounter (principal); D64.9 Anemia, unspecified; W19.XXXA Unspecified fall, initial encounter; Y93.9 Activity, unspecified; Y92.009 Unspecified place in unspecified non-institutional (private) residence as the place of occurrence of the external cause; Z91.81 History of falling; Z88.0 Allergy status to penicillin; Z88.2 Allergy status to sulfonamides; I10 Essential (primary) hypertension; E11.9 Type 2 diabetes mellitus without complications; E78.5 Hyperlipidemia, unspecified
CPT/HCPCS: 36415; 73502; 73701 ×2; 80048; 80076; 81003; 85027; 85610; 85730; 87088; 96360; 96361; 99284; J7030; Q9967; 87086